=== PATIENT | male | born 1950 | race Caucasian/White ===

== ENCOUNTER → 2021-03-31 12:45 | Outpatient (REF) | payer MEDICARE, SELFPAY ==
--- NOTE | 2021-03-31 13:29 | CA_ITS ---
Transthoracic Echocardiogram Patient (Last, First, Middle): Alejandro Lee K Gender: Male Date of : 1950 Age: 71 Procedure Date: 03/31/2021 Procedure Type: Transthoracic Echocardiogram Location: OP Height: 170.18 cm Weight: 83.92 kg BSA: 1.96 m2 Heart Rate: bpm BP: 130 / 50 mmHg Dynamite Reclaimer: CROW Referring MD: Dwight Nunes MD Shactor: Jaxson Lane MD Symptoms: R06.02 SOB Study Quality: Good ECG Rhythm: Sinus Conclusions: - 1. low normal LV systolic function with LVEF of 50-55% with impaired relaxation filling pattern with underlying regional wall motion abnormality suggestive coronary artery disease 2. Mild aortic stenosis and regurgitation 3. Mildly dilated left atrium 4. Normal RV systolic pressure 5. No gross pericardial effusion Findings Left Ventricle Normal left ventricular cavity size. There is normal left ventricular wall thickness. The visually estimated ejection fraction is between 50-55%. Spectral Doppler is indicative of an impaired relaxation filling pattern. E/E prime ratio is between 8 and 15 consistent with indeterminate filling pressures. There is moderate septal asymmetric hypertrophy. Wall Motion Rest Echo Findings The basal inferior, basal inferoseptal, and basal inferolateral segments are hypokinetic. All other scored wall segments showed normal motion. Right Ventricle Normal right ventricular cavity size and systolic function. Atria The left atrium is mildly dilated. Interatrial shunt cannot be excluded. The right atrium was not well visualized. Aortic Valve There is mild calcification of the aortic valve. There is mild aortic valve stenosis. The peak aortic gradient is 14 mmHg.The mean gradient is 7 mmHg. There is mild aortic valve regurgitation. Mitral Valve There is mild anterior and moderate posterior mitral leaflet thickening. There is moderate mitral annular calcification. There is trace mitral valve regurgitation. There is no mitral valve stenosis. Pulmonic Valve The pulmonic valve was not well visualized. Tricuspid Valve Likely normal tricuspid valve structure and function. There is trace tricuspid valve regurgitation. The right ventricular systolic pressure is normal. The right ventricular systolic pressure is 23 mmHg. Normal right atrial pressure. There is no evidence of pulmonary hypertension. Great Vessels All visible segments of the aorta are normal in size. The pulmonary artery was not well visualized. Venous The inferior vena cava is normal in size and collapses greater than 50% with inspiration. Pericardium/Pleural There is no evidence of pericardial effusion. Prior Study Comparison Changes noted compared to prior study dated: 08/22/2017. Regional wall motion abnormality is apparent. RV systolic pressure is measured to be within normal limits. There is suggestion of mild aortic stenosis. Measurements 2D Linear Measurements IVSd: 1.49 0.6-0.9/0.6-1.0 cm LVIDd: 5.14 3.9-5.3/4.2-5.9 cm LVIDd Index: 2.62 2.4-3.2/2.2-3.1 cm/m2 LVIDs: 3.88 2.0-3.6 cm LVPWd: 0.83 0.7-1.1 cm LA Diam: 4.10 2.7-3.8/3.0-4.0 cm LAIDs Index: 2.09 1.5-2.3 cm/m2 LV Mass: 290.54 67-162/88-224 g LV Mass Index: 148.23 43-95/49-115 g/m2 LVOT Diam: 2.30 3.0+(-)1.3 cm 2D Systolic Function EF 4C: 45.90 >55% EF 2C: 55.10 >55% EF BiP: 50.20 >55% Mitral Valve MV Pk E: 0.61 MV PK A: 0.83 MV Decel Time: 245.00 E/A: 0.70 E'Lateral: 8.27 E'Medial: 6.20 E/E' Med: 9.90 E/E' Lat: 7.40 PHT: 72.00 MVA PHT: 3.06 Decel Mingo: 2.50 Aortic Valve AoV Pk Binu: 1.88 AoV Mn Binu: 1.26 AoV VTI: 0.37 AoV Pk Grad: 14.00 Aov Mn Grad: 7.00 ANA CRISTINA Cont.VTI: 2.17 LVOT LVOT Pk Binu: 0.95 LVOT Mn Binu: 0.57 LVOT VTI: 0.19 LVOT Pk Grad: 4.00 LVOT Mn Grad: 2.00 LVOT Diam: 2.30 LVOT Area: 4.15 Diastolic Function MV Pk E: 0.61 MV Pk A: 0.83 E/A: 0.70 E'Medial: 6.20 E/E' Med: 9.90 E' Laterial: 8.27 E/E' Lat: 7.40 Right Ventricle TAPSE (mm): 2.09 Tricuspid Valve TR Pk Binu: 2.23 TR Pk Grad: 20.00 RA Press: 3.00 RVSP: 23.00 Great Vessels Aorta Ao Asc: 3.80 2.1-3.4 cm Updated in Other Vendor System with Status of Final Jaxson Lane MD electronically signed on 04/02/2021 10:25:41 AM with status of Final
== END ==
LOC: HO.CARD 12:45
PROVIDERS: Visit Provider Family Medicine
DX: I08.0 Rheumatic disorders of both mitral and aortic valves (principal); R06.02 Shortness of breath
CPT/HCPCS: 93306

== ENCOUNTER 2022-07-29 15:12 | Emergency (ER) | payer MEDICARE, SELFPAY ==
--- NOTE | 2022-07-29 15:45 | ED_ITS ---
HPI - General Adult General Chief complaint: Wound/Laceration <INOCENCIO Chirinos - Last Filed: 07/29/22 16:04> Stated complaint: wound center sent over <INOCENCIO Chirinos - Last Filed: 07/29/22 16:04> Time Seen by Provider: 07/29/22 16:09 <INOCENCIO Chirinos - Last Filed: 07/29/22 16:04> Source: patient <Peggy De La Paz MD - Last Filed: 07/29/22 18:06> Mode of arrival: ambulatory <Peggy De La Paz MD - Last Filed: 07/29/22 18:06> Limitations: no limitations <Peggy De La Paz MD - Last Filed: 07/29/22 18:06> History of Present Illness HPI narrative: Patient comes emergency room from the wound clinic. Patient states he is a new patient today. Patient has history of an old tib-fib fracture which occur in the 1970s. Patient states that he healed well and had no problems. Approximately a week ago, patient went cross-country skiing, fell, injuring the old surgical site. Patient states that he did not think much of it. Patient noted that there was a laceration in his briseno. However, patient states that because [place] was [place] of [place], he did not want to go to a hospital and risk getting a huge bill. Patient denies fever chills. <Peggy De La Paz MD - Last Filed: 07/29/22 18:06> Related Data Allergies/adverse reactions: Allergies Allergy/AdvReac Type Severity Reaction Status Date / Time No Known Allergies Allergy Mild N/A Unverified 01/23/20 15:22 <INOCENCIO Chirinos - Last Filed: 07/29/22 16:04> Review of Systems Review of Systems: Constitutional : No Weight loss, No Fever, No Chills, No Night Sweats, No Fatigue, No Malaise ENT/Mouth : No Hearing loss, No Ear Pain, No Nasal Congestion, No Sinus Pain, No Hoarseness, No sore throat, No Rhinorrhea, No Swallowing Difficulty Eyes: No Eye Pain, No Swelling, No Redness, No Foreign Body, No Discharge, No Vision Changes Cardiovascular : No Chest Pain, No SOB, No Dyspnea on Exertion, No Orthopnea, No Edema, No Palpitations Respiratory : No Cough, No Sputum, No Wheezing, No Smoke Exposure, No Dyspnea Gastrointestinal : No Nausea, No Vomiting, No Diarrhea, No Constipation, No abdominal Pain, No Hematochezia, No Melena Genitourinary : no irregular bleeding, No Dysuria, No Urinary Frequency, No Hematuria, No Urinary Incontinence, No Urgency, No Flank Pain, No Urinary Flow Changes, No Hesitancy Musculoskeletal : No joint pain, No Myalgias, No Joint Swelling Skin : No Skin Lesions, infected chronic wound on dorsum left lower extremity Neuro : No Weakness, No Numbness, No Paresthesias, No Loss of Consciousness, No Dizziness, No Headache Psych : No Anxiety/Panic, No Depression, No SI/HI/AH/VH, No Social Issues, Heme/Lymph: No Bruising, No Bleeding,No Lymphadenopathy Endocrine : No Polyuria, No Polydipsia, No Temperature Intolerance <Peggy De La Paz MD - Last Filed: 07/29/22 18:06> [facility] Social History Social History: Social History Advance Directives: No Advance Directives Information Provided: No <INOCENCIO Chirinos - Last Filed: 07/29/22 16:04> Physical Exam ED Vital Signs: Vital Signs - 24 hr 07/29/22 15:53 Temperature 98 F Pulse Rate 78 Respiratory Rate 18 Blood Pressure 148/65 H Pulse Oximetry 97 Oxygen Delivery Method Room Air BMI result Body Mass Index 29.0 <INOCENCIO Chirinos - Last Filed: 07/29/22 16:04> Vital Signs - 24 hr 07/29/22 15:53 Temperature 98 F Pulse Rate 78 Respiratory Rate 18 Blood Pressure 148/65 H Pulse Oximetry 97 Oxygen Delivery Method Room Air BMI result Body Mass Index 29.0 <Peggy De La Paz MD - Last Filed: 07/29/22 18:06> Const Other: Appearance: Alert. Oriented X3. No acute distress. Eyes: Pupils equal, round and reactive to light. ENT: Pharynx normal. Neck: Normal inspection. Neck supple. No lymph nodes noted. No crepitus CVS: Normal heart rate and rhythm. Pulses normal. Normal S1 and S2 Respiratory: No respiratory distress. Breath sounds normal. No Wheezing. No rales Abdomen: Soft and nontender. No rigidity. No distention. Skin: Skin warm and dry. Normal skin color. Patient has a 3 cm by 2 cm wound on the dorsum of the left briseno, cellulitis surrounding the wound. Extremities: No lower extremity edema. See skin above Neuro: Oriented X 3. No motor deficit. No sensory deficit. Moving all extremities. No slurred speech. CN 2 through 12 grossly intact Psych: calm, cooperative, normal affect <Peggy De La Paz MD - Last Filed: 07/29/22 18:06> Course Course Course Narrative: RME--72-year-old male with a past medical history multiple left lower extremity surgeries, sent to ED from wound care for suspected osteomyelitis and Gram cultures growing Gram-negative rods. Outpatient x-rays today show healing fractures of the distal tibia/fibula & healing proximal fibular fracture. Patient reports malodor noted from area today. Denies fever Open wound with bony exposure to mid left tibia with surrounding swelling/erythe ma and warmth. Small area proximal bleeding suspected from bony puncture Labs including lactic/blood cultures ordered, patient will need IV antibiotics <INOCENCIO Chirinos - Last Filed: 07/29/22 16:04> Medications Administered Discontinued Medications Generic Name Dose Route Start Last Admin Trade Name Freq PRN Reason Stop Dose Admin Piperacillin Sod/Tazobactam 50 mls @ 100 mls/hr 07/29/22 16:19 07/29/22 17:52 Sod 3.375 gm/ Sodium Chloride IV 07/29/22 16:48 Infused ONCE ONE Infusion <INOCENCIO Chirinos - Last Filed: 07/29/22 16:04> Medications Administered Discontinued Medications Generic Name Dose Route Start Last Admin Trade Name Freq PRN Reason Stop Dose Admin Piperacillin Sod/Tazobactam 50 mls @ 100 mls/hr 07/29/22 16:19 07/29/22 17:52 Sod 3.375 gm/ Sodium Chloride IV 07/29/22 16:48 Infused ONCE ONE Infusion <Peggy De La Paz MD - Last Filed: 07/29/22 18:06> Medical Decision Making Medical Decision Making MDM Narrative: -I discussed with the patient that I strongly encouraged him to stay for admission and IV antibiotics. -patient is alert and oriented x4, states that he lives at home alone and there is no one to lock his apartment. Patient states that there is no one that can help with this. Patient states that he is agreeable to get a dose of IV antibiotics today. Patient requesting to be discharged and he will be back later today or tomorrow in the morning. Patient is aware that given the hospital will delay his care and the wound may worsen, he may become septic which in severe cases may lead to , also, discussed that the infection can worsen to the point of amputation or disability <Peggy De La Paz MD - Last Filed: 07/29/22 18:06> Differential Diagnosis Differential Diagnoses: The differential diagnosis associated with the presentation includes (Cellulitis, osteomyelitis) <Peggy De La Paz MD - Last Filed: 07/29/22 18:06> Admission/Observation Consideration of admission/observation: Escalation of care including admission/observation considered (I discussed with the patient I strongly recommend that he gets admitted. Patient states that he will take care of things at home, and then return for admission. As mentioned above, I discussed with the patient the risks of leaving) <Peggy De La Paz MD - Last Filed: 07/29/22 18:06> Lab Data MDM Lab Attestation statement: I reviewed the patient's lab results. <Peggy De La Paz MD - Last Filed: 07/29/22 18:06> Result Diagrams: 07/29/22 16:33 07/29/22 16:33 <INOCENCIO Chirinos - Last Filed: 07/29/22 16:04> Labs: Lab Results 07/29/22 07/29/22 07/29/22 Range/Units 16:33 16:33 16:33 WBC 9.8 (4.8-10.8) X10*3/uL RBC 4.23 L (4.60-5.80) X10*6/uL Hgb 13.0 L (14.0-18.0) g/dl Hct 38.4 L (42.0-52.0) % MCV 90.8 (80.0-98.0) fL MCH 30.7 (27.0-33.0) pg MCHC 33.9 (31.0-36.0) g/dl RDW 13.4 (11.0-16.0) % Plt Count 322 (160-400) X10*3/uL MPV 8.8 L (9.4-12.4) fL Immature Gran % (Auto) 0.3 (0.0-0.4) % Neut % (Auto) 61.4 (45-73) % Lymph % (Auto) 21.8 (20-40) % Churchill % (Auto) 11.3 H (2-11) % Eos % (Auto) 4.4 H (0-4) % Baso % (Auto) 0.8 (0-2) % Lymph # (Auto) 2.1 (1.2-4.9) X10*3/uL Churchill # (Auto) 1.1 (0.1-1.2) X10*3/uL Eos # (Auto) 0.4 (0.0-0.4) X10*3/uL Baso # (Auto) 0.1 (0.0-0.2) X10*3/uL Abs Immat Gran (auto) 0.03 (0.00-0.03) X10*3/uL Absolute Neuts (auto) 6.0 (2.0-8.3) x10*3/uL Absolute Nucleated RBC 0.000 (0.0-0.012) X10*3/uL Nucleated RBC % (auto) 0.0 (0.0-0.2) /100WBC ESR 58 H (0-15) MM/HR PT 12.6 (10.0-13.1) SEC INR 1.1 (0.9-1.1) Sodium (135-145) mmol/L Potassium (3.3-5.1) mmol/L Chloride (96-108) mmol/L Carbon Dioxide (22-29) mmol/L Anion Gap (12-20) BUN (9-16) mg/dL Creatinine (0.5-1.4) mg/dL Estim Creat Clear Calc Estimated GFR Random Glucose (60-115) mg/dL Lactic Acid (0.5-2.0) mmol/L Calcium (8.4-10.2) mg/dL Magnesium (1.6-2.6) mg/dL Total Bilirubin (0.0-1.0) mg/dL Direct Bilirubin (0.0-0.5) mg/dL AST (5-37) U/L ALT (0-40) U/L Alkaline Phosphatase (39-117) U/L C-Reactive Protein (< or = 0.50) mg/dL Total Protein (6.5-8.0) g/dL Albumin (3.5-5.0) g/dL COVID-19 (RON) (Negative) COVID-19 Clin Com 07/29/22 07/29/22 07/29/22 Range/Units 16:33 16:33 16:33 WBC (4.8-10.8) X10*3/uL RBC (4.60-5.80) X10*6/uL Hgb (14.0-18.0) g/dl Hct (42.0-52.0) % MCV (80.0-98.0) fL MCH (27.0-33.0) pg MCHC (31.0-36.0) g/dl RDW (11.0-16.0) % Plt Count (160-400) X10*3/uL MPV (9.4-12.4) fL Immature Gran % (Auto) (0.0-0.4) % Neut % (Auto) (45-73) % Lymph % (Auto) (20-40) % Churchill % (Auto) (2-11) % Eos % (Auto) (0-4) % Baso % (Auto) (0-2) % Lymph # (Auto) (1.2-4.9) X10*3/uL Churchill # (Auto) (0.1-1.2) X10*3/uL Eos # (Auto) (0.0-0.4) X10*3/uL Baso # (Auto) (0.0-0.2) X10*3/uL Abs Immat Gran (auto) (0.00-0.03) X10*3/uL Absolute Neuts (auto) (2.0-8.3) x10*3/uL Absolute Nucleated RBC (0.0-0.012) X10*3/uL Nucleated RBC % (auto) (0.0-0.2) /100WBC ESR (0-15) MM/HR PT (10.0-13.1) SEC INR (0.9-1.1) Sodium 132 L (135-145) mmol/L Potassium 4.8 (3.3-5.1) mmol/L Chloride 95 L (96-108) mmol/L Carbon Dioxide 27 (22-29) mmol/L Anion Gap 15 (12-20) BUN 17 H (9-16) mg/dL Creatinine 1.12 (0.5-1.4) mg/dL Estim Creat Clear Calc 59.8 Estimated GFR > 60 Random Glucose 99 (60-115) mg/dL Lactic Acid 1.4 (0.5-2.0) mmol/L Calcium 9.2 (8.4-10.2) mg/dL Magnesium 2.0 (1.6-2.6) mg/dL Total Bilirubin 0.5 (0.0-1.0) mg/dL Direct Bilirubin 0.2 (0.0-0.5) mg/dL AST 21 (5-37) U/L ALT 14 (0-40) U/L Alkaline Phosphatase 90 (39-117) U/L C-Reactive Protein 1.16 H (< or = 0.50) mg/dL Total Protein 7.8 (6.5-8.0) g/dL Albumin 3.9 (3.5-5.0) g/dL COVID-19 (RON) Negative (Negative) COVID-19 Clin Com See Note <INOCENCIO Chirinos - Last Filed: 07/29/22 16:04> Lab Results 07/29/22 07/29/22 07/29/22 Range/Units 16:33 16:33 16:33 WBC 9.8 (4.8-10.8) X10*3/uL RBC 4.23 L (4.60-5.80) X10*6/uL Hgb 13.0 L (14.0-18.0) g/dl Hct 38.4 L (42.0-52.0) % MCV 90.8 (80.0-98.0) fL MCH 30.7 (27.0-33.0) pg MCHC 33.9 (31.0-36.0) g/dl RDW 13.4 (11.0-16.0) % Plt Count 322 (160-400) X10*3/uL MPV 8.8 L (9.4-12.4) fL Immature Gran % (Auto) 0.3 (0.0-0.4) % Neut % (Auto) 61.4 (45-73) % Lymph % (Auto) 21.8 (20-40) % Churchill % (Auto) 11.3 H (2-11) % Eos % (Auto) 4.4 H (0-4) % Baso % (Auto) 0.8 (0-2) % Lymph # (Auto) 2.1 (1.2-4.9) X10*3/uL Churchill # (Auto) 1.1 (0.1-1.2) X10*3/uL Eos # (Auto) 0.4 (0.0-0.4) X10*3/uL Baso # (Auto) 0.1 (0.0-0.2) X10*3/uL Abs Immat Gran (auto) 0.03 (0.00-0.03) X10*3/uL Absolute Neuts (auto) 6.0 (2.0-8.3) x10*3/uL Absolute Nucleated RBC 0.000 (0.0-0.012) X10*3/uL Nucleated RBC % (auto) 0.0 (0.0-0.2) /100WBC ESR 58 H (0-15) MM/HR PT 12.6 (10.0-13.1) SEC INR 1.1 (0.9-1.1) Sodium (135-145) mmol/L Potassium (3.3-5.1) mmol/L Chloride (96-108) mmol/L Carbon Dioxide (22-29) mmol/L Anion Gap (12-20) BUN (9-16) mg/dL Creatinine (0.5-1.4) mg/dL Estim Creat Clear Calc Estimated GFR Random Glucose (60-115) mg/dL Lactic Acid (0.5-2.0) mmol/L Calcium (8.4-10.2) mg/dL Magnesium (1.6-2.6) mg/dL Total Bilirubin (0.0-1.0) mg/dL Direct Bilirubin (0.0-0.5) mg/dL AST (5-37) U/L ALT (0-40) U/L Alkaline Phosphatase (39-117) U/L C-Reactive Protein (< or = 0.50) mg/dL Total Protein (6.5-8.0) g/dL Albumin (3.5-5.0) g/dL COVID-19 (RON) (Negative) COVID-19 Clin Com 07/29/22 07/29/22 07/29/22 Range/Units 16:33 16:33 16:33 WBC (4.8-10.8) X10*3/uL RBC (4.60-5.80) X10*6/uL Hgb (14.0-18.0) g/dl Hct (42.0-52.0) % MCV (80.0-98.0) fL MCH (27.0-33.0) pg MCHC (31.0-36.0) g/dl RDW (11.0-16.0) % Plt Count (160-400) X10*3/uL MPV (9.4-12.4) fL Immature Gran % (Auto) (0.0-0.4) % Neut % (Auto) (45-73) % Lymph % (Auto) (20-40) % Churchill % (Auto) (2-11) % Eos % (Auto) (0-4) % Baso % (Auto) (0-2) % Lymph # (Auto) (1.2-4.9) X10*3/uL Churchill # (Auto) (0.1-1.2) X10*3/uL Eos # (Auto) (0.0-0.4) X10*3/uL Baso # (Auto) (0.0-0.2) X10*3/uL Abs Immat Gran (auto) (0.00-0.03) X10*3/uL Absolute Neuts (auto) (2.0-8.3) x10*3/uL Absolute Nucleated RBC (0.0-0.012) X10*3/uL Nucleated RBC % (auto) (0.0-0.2) /100WBC ESR (0-15) MM/HR PT (10.0-13.1) SEC INR (0.9-1.1) Sodium 132 L (135-145) mmol/L Potassium 4.8 (3.3-5.1) mmol/L Chloride 95 L (96-108) mmol/L Carbon Dioxide 27 (22-29) mmol/L Anion Gap 15 (12-20) BUN 17 H (9-16) mg/dL Creatinine 1.12 (0.5-1.4) mg/dL Estim Creat Clear Calc 59.8 Estimated GFR > 60 Random Glucose 99 (60-115) mg/dL Lactic Acid 1.4 (0.5-2.0) mmol/L Calcium 9.2 (8.4-10.2) mg/dL Magnesium 2.0 (1.6-2.6) mg/dL Total Bilirubin 0.5 (0.0-1.0) mg/dL Direct Bilirubin 0.2 (0.0-0.5) mg/dL AST 21 (5-37) U/L ALT 14 (0-40) U/L Alkaline Phosphatase 90 (39-117) U/L C-Reactive Protein 1.16 H (< or = 0.50) mg/dL Total Protein 7.8 (6.5-8.0) g/dL Albumin 3.9 (3.5-5.0) g/dL COVID-19 (RON) Negative (Negative) COVID-19 Clin Com See Note <Peggy De La Paz MD - Last Filed: 07/29/22 18:06> Radiology Impression Discussion of test interpretation with radiology: I have reviewed the radiologist's reading. (X-ray from yesterday, ordered from outpatient office) <Peggy De La Paz MD - Last Filed: 07/29/22 18:06> Radiologist Impression: FINDINGS: There is healing fracture distal tibia and fibula with mild lateral angulation. There is a leading proximal fibular fracture as well. No acute fractures seen.? XR/XR tibia fibula LT 2V IMPRESSION: Healing fracture distal tibia and fibula with mild lateral angulation. There is healing proximal fibular fracture as well. No acute fracture seen. <Peggy De La Paz MD - Last Filed: 07/29/22 18:06> Prescription Management I considered prescription management with: Antibiotic (I considered giving the patient a prescription for antibiotics. However, patient states that he will return tonight to be admitted) <Peggy De La Paz MD - Last Filed: 07/29/22 18:06> Discharge Plan Discharge Clinical Impression: Cellulitis <INOCENCIO Chirinos - Last Filed: 07/29/22 16:04> Patient Disposition: Left Against Medical Advice <INOCENCIO Chirinos - Last Filed: 07/29/22 16:04> Instructions: Cellulitis (ED) <INOCENCIO Chirinos - Last Filed: 07/29/22 16:04> Additional Instructions: We recommended that you stay in the hospital for IV antibiotics. Please return as soon as possible to be admitted. <INOCENCIO Chirinos - Last Filed: 07/29/22 16:04>
[2022-07-29 15:53] VITALS: BP 148/65; PULSE 78; RESP 18; TEMP 36.6; O2SAT 97; BMI 29.0
--- NOTE | 2022-07-29 15:56 | ECG_ITS ---
Test Reason : ?SEPSIS Blood Pressure : / mmHG Vent. 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
[2022-07-29 16:38] LABS: MANUAL DIFF FLAG NO
[2022-07-29 16:40] LABS: Basophils Absolute Auto 0.1 X10*3/uL (0.0-0.2); Basophils Percent Auto 0.8 % (0-2); Eosinophils Absolute Auto 0.4 X10*3/uL (0.0-0.4); Eosinophils Percent Auto 4.4 % (0-4); Hematocrit 38.4 % (42.0-52.0); Imm Gran Abs Auto 0.03 X10*3/uL (0.00-0.03); Imm Gran Pct Auto 0.3 % (0.0-0.4); Lymphocytes Absolute Auto 2.1 X10*3/uL (1.2-4.9); Lymphocytes Percent Auto 21.8 % (20-40); Mean Corpuscular HGB Conc 33.9 g/dl (31.0-36.0); Mean Corpuscular Hemoglobin 30.7 pg (27.0-33.0); Mean Corpuscular Volume 90.8 fL (80.0-98.0); Mean Platelet Volume 8.8 fL (9.4-12.4); Monocytes Absolute Auto 1.1 X10*3/uL (0.1-1.2); Monocytes Percent Auto 11.3 % (2-11); Neutrophils Percent Auto 61.4 % (45-73); Platelet Count 322 X10*3/uL (160-400); Red Blood Count 4.23 X10*6/uL (4.60-5.80); Red Cell Distribution Width 13.4 % (11.0-16.0); White Blood Count 9.8 X10*3/uL (4.8-10.8)
[2022-07-29 16:45] LABS: INTERNATIONAL NORM RATIO 1.1 (0.9-1.1); Prothrombin Time 12.6 SEC (10.0-13.1)
[2022-07-29 17:03] LABS: COVID-19 Test Negative (Negative); IDNOW Serial# 08D9AD1C
[2022-07-29 17:07] LABS: Lactic Acid 1.4 mmol/L (0.5-2.0)
[2022-07-29 17:11] LABS: Alanine Aminotransferase 14 U/L (0-40); Albumin Level 3.9 g/dL (3.5-5.0); Alkaline Phosphatase 90 U/L (39-117); Anion Gap 15 (12-20); Aspartate Amino Transferase 21 U/L (5-37); Bilirubin Direct 0.2 mg/dL (0.0-0.5); Bilirubin Total 0.5 mg/dL (0.0-1.0); Blood Urea Nitrogen 17 mg/dL (9-16); C Reactive Protein 1.16 mg/dL (< or = 0.50); Calcium 9.2 mg/dL (8.4-10.2); Carbon Dioxide 27 mmol/L (22-29); Chloride 95 mmol/L (96-108); Creatinine Clr Calc Pharmacy 59.8; Estimated Glomerular Filt Rate > 60; Glucose Random 99 mg/dL (60-115); Potassium 4.8 mmol/L (3.3-5.1); Sodium 132 mmol/L (135-145); Total Protein 7.8 g/dL (6.5-8.0)
[2022-07-29] MEDS: Piperacillin Sodium/Tazobactam 3.375 GM in 0.9 % Sodium Chloride 50 ML IV (17:14)
[2022-07-29 17:23] LABS: Erythrocyte Sedimentation Rate 58 MM/HR (0-15)
--- NOTE | 2022-07-29 18:06 | PC.NURSE ---
Patient with wound to medial aspect to left calf receiving ABX with no ill ffect. AOx 4 swelling noted to LLE with redness traced with marker will CTM
[2022-07-29 19:53] VITALS: BP 151/55; PULSE 78; RESP 18; TEMP 36.8; O2SAT 99
--- NOTE | 2022-07-29 21:47 | PC.NURSE ---
Assumed care of pt. at 1900. Pt. lying in bed at this time under no apparent distress. Pt. has vancomycin running with about 1 hour 15 minutes left. Pt. is going to d/c home AMA when finished. Pt. encouraged to return for admission [facility] to obtain more IV antibiotics. Pt. has a wound to the left leg about 5X7cm in size, which was cleansed and wrapped with xeroform and then covered in gauze and wrapped with conforming bandage.
== END 2022-07-29 21:00 | disposition left against medical advice (07) ==
PROVIDERS: Physician Assistant; Emergency Provider Emergency Medicine
DX: L03.116 Cellulitis of left lower limb (principal); R94.31 Abnormal electrocardiogram [ECG] [EKG]; Z20.822 Contact with and (suspected) exposure to COVID-19; Z20.828 Contact with and (suspected) exposure to other viral communicable diseases; Z79.899 Other long term (current) drug therapy
CPT/HCPCS: 80048; 80076; 83605; 83735; 85025; 85610; 85652; 86140; 87040; 87635; 93005; 96365; 96375; 99284; J2543; J3370

== ENCOUNTER 2022-07-31 12:46 | Emergency (ER) | payer MEDICARE, SELFPAY ==
[2022-07-31 12:55] VITALS: BP 134/68; PULSE 73; RESP 19; TEMP 36.6; O2SAT 100; BMI 27.3
--- NOTE | 2022-07-31 13:01 | ED_ITS ---
HPI - General Adult General Chief complaint: Wound/Laceration Stated complaint: transfusion? Related Data Allergies Allergy/AdvReac Type Severity Reaction Status Date / Time No Known Allergies Allergy Mild N/A Unverified 01/23/20 15:22 [facility] Social History Social History Advance Directives: No Advance Directives Information Provided: No Physical Exam ED Vital Signs: Vital Signs - 24 hr 07/31/22 12:55 Temperature 98 F Pulse Rate 73 Respiratory Rate 19 Blood Pressure 134/68 Pulse Oximetry 100 Oxygen Delivery Method Room Air BMI result Body Mass Index 27.3 Course Course Course Narrative: RME: 72 yold male presents to the ED for left foot wound. patient was supposed to be admitted last 07/29, but signed out AMA. patient willing to be admitted. repeat labs ordered. Patient had Xray on 07/29 Medical Decision Making Lab Data 07/31/22 15:23 07/31/22 15:23 Labs: Lab Results 07/31/22 07/31/22 07/31/22 Range/Units 15:23 15:23 15:23 WBC 7.8 (4.8-10.8) X10*3/uL RBC 4.48 L (4.60-5.80) X10*6/uL Hgb 13.8 L (14.0-18.0) g/dl Hct 41.5 L (42.0-52.0) % MCV 92.6 (80.0-98.0) fL MCH 30.8 (27.0-33.0) pg MCHC 33.3 (31.0-36.0) g/dl RDW 13.4 (11.0-16.0) % Plt Count 342 (160-400) X10*3/uL MPV 8.8 L (9.4-12.4) fL Immature Gran % (Auto) 0.5 H (0.0-0.4) % Neut % (Auto) 56.9 (45-73) % Lymph % (Auto) 24.4 (20-40) % Bollinger % (Auto) 13.1 H (2-11) % Eos % (Auto) 4.2 H (0-4) % Baso % (Auto) 0.9 (0-2) % Lymph # (Auto) 1.9 (1.2-4.9) X10*3/uL Bollinger # (Auto) 1.0 (0.1-1.2) X10*3/uL Eos # (Auto) 0.3 (0.0-0.4) X10*3/uL Baso # (Auto) 0.1 (0.0-0.2) X10*3/uL Abs Immat Gran (auto) 0.04 H (0.00-0.03) X10*3/uL Absolute Neuts (auto) 4.5 (2.0-8.3) x10*3/uL Absolute Nucleated RBC 0.000 (0.0-0.012) X10*3/uL Nucleated RBC % (auto) 0.0 (0.0-0.2) /100WBC ESR 64 H (0-15) MM/HR Sodium 132 L (135-145) mmol/L Potassium 4.2 (3.3-5.1) mmol/L Chloride 95 L (96-108) mmol/L Carbon Dioxide 24 (22-29) mmol/L Anion Gap 17 (12-20) BUN 15 (9-16) mg/dL Creatinine 1.02 (0.5-1.4) mg/dL Estim Creat Clear Calc 63.3 Estimated GFR > 60 Random Glucose 89 (60-115) mg/dL Lactic Acid (0.5-2.0) mmol/L Calcium 9.6 (8.4-10.2) mg/dL Total Bilirubin 0.6 (0.0-1.0) mg/dL AST 24 (5-37) U/L ALT 16 (0-40) U/L Alkaline Phosphatase 89 (39-117) U/L C-Reactive Protein 1.41 H (< or = 0.50) mg/dL Total Protein 8.3 H (6.5-8.0) g/dL Albumin 4.0 (3.5-5.0) g/dL 07/31/22 Range/Units 15:23 WBC (4.8-10.8) X10*3/uL RBC (4.60-5.80) X10*6/uL Hgb (14.0-18.0) g/dl Hct (42.0-52.0) % MCV (80.0-98.0) fL MCH (27.0-33.0) pg MCHC (31.0-36.0) g/dl RDW (11.0-16.0) % Plt Count (160-400) X10*3/uL MPV (9.4-12.4) fL Immature Gran % (Auto) (0.0-0.4) % Neut % (Auto) (45-73) % Lymph % (Auto) (20-40) % Bollinger % (Auto) (2-11) % Eos % (Auto) (0-4) % Baso % (Auto) (0-2) % Lymph # (Auto) (1.2-4.9) X10*3/uL Bollinger # (Auto) (0.1-1.2) X10*3/uL Eos # (Auto) (0.0-0.4) X10*3/uL Baso # (Auto) (0.0-0.2) X10*3/uL Abs Immat Gran (auto) (0.00-0.03) X10*3/uL Absolute Neuts (auto) (2.0-8.3) x10*3/uL Absolute Nucleated RBC (0.0-0.012) X10*3/uL Nucleated RBC % (auto) (0.0-0.2) /100WBC ESR (0-15) MM/HR Sodium (135-145) mmol/L Potassium (3.3-5.1) mmol/L Chloride (96-108) mmol/L Carbon Dioxide (22-29) mmol/L Anion Gap (12-20) BUN (9-16) mg/dL Creatinine (0.5-1.4) mg/dL Estim Creat Clear Calc Estimated GFR Random Glucose (60-115) mg/dL Lactic Acid 1.0 (0.5-2.0) mmol/L Calcium (8.4-10.2) mg/dL Total Bilirubin (0.0-1.0) mg/dL AST (5-37) U/L ALT (0-40) U/L Alkaline Phosphatase (39-117) U/L C-Reactive Protein (< or = 0.50) mg/dL Total Protein (6.5-8.0) g/dL Albumin (3.5-5.0) g/dL Discharge Plan Discharge Clinical Impression: Wound infection Patient Disposition: Left Without Being Seen Discharge Date/Time: 07/31/22 18:54
[2022-07-31 15:30] LABS: MANUAL DIFF FLAG NO
[2022-07-31 15:39] LABS: Basophils Absolute Auto 0.1 X10*3/uL (0.0-0.2); Basophils Percent Auto 0.9 % (0-2); Eosinophils Absolute Auto 0.3 X10*3/uL (0.0-0.4); Eosinophils Percent Auto 4.2 % (0-4); Hematocrit 41.5 % (42.0-52.0); Hemoglobin 13.8 g/dl (14.0-18.0); Imm Gran Abs Auto 0.04 X10*3/uL (0.00-0.03); Imm Gran Pct Auto 0.5 % (0.0-0.4); Lymphocytes Absolute Auto 1.9 X10*3/uL (1.2-4.9); Lymphocytes Percent Auto 24.4 % (20-40); Mean Corpuscular HGB Conc 33.3 g/dl (31.0-36.0); Mean Corpuscular Hemoglobin 30.8 pg (27.0-33.0); Mean Corpuscular Volume 92.6 fL (80.0-98.0); Mean Platelet Volume 8.8 fL (9.4-12.4); Monocytes Percent Auto 13.1 % (2-11); Neutrophils Absolute Auto 4.5 x10*3/uL (2.0-8.3); Neutrophils Percent Auto 56.9 % (45-73); Platelet Count 342 X10*3/uL (160-400); Red Blood Count 4.48 X10*6/uL (4.60-5.80); Red Cell Distribution Width 13.4 % (11.0-16.0); White Blood Count 7.8 X10*3/uL (4.8-10.8)
[2022-07-31 15:55] LABS: Alanine Aminotransferase 16 U/L (0-40); Alkaline Phosphatase 89 U/L (39-117); Anion Gap 17 (12-20); Aspartate Amino Transferase 24 U/L (5-37); Bilirubin Total 0.6 mg/dL (0.0-1.0); Blood Urea Nitrogen 15 mg/dL (9-16); C Reactive Protein 1.41 mg/dL (< or = 0.50); Calcium 9.6 mg/dL (8.4-10.2); Carbon Dioxide 24 mmol/L (22-29); Chloride 95 mmol/L (96-108); Creatinine Clr Calc Pharmacy 63.3; Estimated Glomerular Filt Rate > 60; Glucose Random 89 mg/dL (60-115); Potassium 4.2 mmol/L (3.3-5.1); Sodium 132 mmol/L (135-145); Total Protein 8.3 g/dL (6.5-8.0)
[2022-07-31 16:34] LABS: Erythrocyte Sedimentation Rate 64 MM/HR (0-15)
== END 2022-07-31 18:54 | disposition left against medical advice (07) ==
PROVIDERS: Physician Assistant; Emergency Provider Emergency Medicine; PCP Family Medicine
DX: L08.9 Local infection of the skin and subcutaneous tissue, unspecified (principal); Z79.899 Other long term (current) drug therapy
CPT/HCPCS: 36415; 80053; 83605; 85025; 85652; 86140; 87040; 99281; 99283

== ENCOUNTER 2022-08-24 11:15 | Outpatient (REF) | payer MEDICARE, SELFPAY ==
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
== END 2022-08-24 11:16 | disposition home or self-care (01) ==
LOC: HO.MRI 11:15
PROVIDERS: PCP Family Medicine; Visit Provider Surgery
DX: L97.823 Non-pressure chronic ulcer of other part of left lower leg with necrosis of muscle (principal)
CPT/HCPCS: 73720; A9585

== ENCOUNTER → 2022-09-21 10:52 | Outpatient (BNVA) | payer MEDICARE, SELFPAY | PROVIDERS: PCP Family Medicine; Visit Provider Internal Medicine | DX: M86.9 Osteomyelitis, unspecified (principal) | CPT/HCPCS: 99202 ==

== ENCOUNTER 2022-10-06 14:55 | Outpatient (REF) | payer MEDICARE, SELFPAY ==
--- NOTE | ~2022-10-06 | US_ITS ---
EXAMINATION: US VENOUS ULTRASOUND WITH DOPPLER LOWER EXTREMITY, LEFT CLINICAL INFORMATION: Left lower extremity swelling and and lump. COMPARISON: None available. TECHNIQUE: Ultrasound of the deep veins is performed from the hip to the calf with compression sonography and color and pulse Doppler assessment. Spectral analysis with color-flow imaging is performed. FINDINGS: There is normal venous compression and respiratory variation and augmented flow. The visualized common femoral vein, superficial femoral vein, profunda femoral vein, popliteal vein, and the trifurcation region shows no evidence of deep venous thrombosis. There is no left popliteal cyst. The subcutaneous soft tissues are unremarkable. US/US venous duplex LE LT IMPRESSION: No evidence for deep venous thrombosis in the visualized veins of the left lower extremity.
== END 2022-10-06 14:56 | disposition home or self-care (01) ==
LOC: HO.US 14:55
PROVIDERS: Visit Provider Surgery
DX: R22.43 Localized swelling, mass and lump, lower limb, bilateral (principal)
CPT/HCPCS: 93971

== ENCOUNTER → 2022-10-31 14:28 | Outpatient (BNVA) | payer MEDICARE, SELFPAY | PROVIDERS: PCP Family Medicine; Visit Provider Internal Medicine | DX: M86.9 Osteomyelitis, unspecified (principal); I87.8 Other specified disorders of veins | CPT/HCPCS: 99212 ==

== ENCOUNTER 2023-03-06 13:56 | Outpatient (REF) | payer MEDICARE, SELFPAY ==
--- NOTE | ~2023-03-06 | CT_ITS ---
EXAMINATION: CT head/brain wo IV con CLINICAL INFORMATION: Reason for Exam CONTUSION OF UNSPECIFIED PART OF HEAD COMPARISON: CTA the neck 06/14/2019 TECHNIQUE: Contiguous axial imaging was performed from the skull base to vertex without intravenous contrast. Sagittal and coronal reformatted images were obtained. This CT examination was performed using dose optimization techniques as appropriate, variously including the following: * Automated exposure control * Adjustment of mA and/or kV according to patient size (this includes techniques or standardized protocols for targeted exams where dose is matched to indication/reason for exam; i.e. extremities or head) Use of iterative reconstruction technique DLP: 885 mGy-cm FINDINGS: New right frontal scalp hematoma tracking into the right preseptal/lateral periorbital soft tissues. No subjacent calvarial fracture. No acute intracranial hemorrhage or extra-axial fluid collection. Mild to moderate global cerebral volume loss and presumed mild chronic microangiopathy. Redemonstrated chronic lacunar infarct in the right cerebellum. No territorial loss of arrington-white differentiation. No mass lesion, significant mass effect, or herniation pattern. Intracranial calcific atherosclerosis. The orbits are grossly normal. Improved paranasal sinus mucosal disease, now with mild patchy ethmoid air cell mucosal disease with a couple bilateral retention cysts/polyps and mild chronic mucoperiosteal disease of the maxillary sinuses related to chronic sinusitis. Cerumen within the bilateral external auditory canals. CT/CT head/brain wo IV con IMPRESSION: New right frontal scalp hematoma tracking into the right preseptal/lateral periorbital soft tissues. No calvarial fracture or acute intracranial hemorrhage. Stable chronic findings as above.
== END 2023-03-06 13:57 | disposition home or self-care (01) ==
LOC: HO.CT 13:56
PROVIDERS: PCP Family Medicine; Visit Provider Physician Assistant
DX: S00.93XA Contusion of unspecified part of head, initial encounter (principal)
CPT/HCPCS: 70450

== ENCOUNTER 2023-03-10 13:31 | Inpatient (IN) | payer MEDICARE, SELFPAY ==
--- NOTE | ~2023-03-10 | XR_ITS ---
EXAMINATION: XR tibia fibula LT 2V, XR femur LT 2V, XR hip LT w PEL1V CLINICAL INFORMATION: Reason for Exam ? Free air COMPARISON: Tibia and fibula radiographs 11/03/2022 TECHNIQUE: Two views of the femur, 1 view of the pelvis, 2 views of the tibia and fibula FINDINGS: Acute displaced and impacted left subcapital femoral neck fracture. Chronic healed fracture deformities of the distal tibial and proximal and distal fibular diaphyses in unchanged alignment. Mild degenerative changes of the hips with subchondral sclerosis. Advanced degenerative changes of the left knee with complete loss of medial compartment joint space. Osteopenia in the ankle and visualized foot. No suprapatellar joint effusion. No tibiotalar joint effusion. Atherosclerotic vascular calcification with a vascular stent in the left thigh and left pelvis. XR/XR hip LT w PEL1V IMPRESSION: 1. Acute displaced and impacted left subcapital femoral neck fracture. 2. Chronic healed fracture deformities of the distal tibial and proximal and distal fibular diaphyses in unchanged alignment. 3. Mild degenerative changes of the hips. 4. Advanced degenerative changes of the left knee with complete loss of medial compartment joint space. 5. Osteopenia in the ankle and visualized foot.
--- NOTE | ~2023-03-10 | XR_ITS ---
EXAMINATION: XR ORBITS CLINICAL INFORMATION: Orbits pre-MRI, rule out foreign body COMPARISON: None available. TECHNIQUE: 3 views of the orbits were obtained. FINDINGS: There is no fracture. No evidence of radiopaque foreign body. No bone, joint or soft tissue abnormality is demonstrated. XR/XR pre mri screening IMPRESSION: No radiopaque foreign body is demonstrated within the orbits.
--- NOTE | ~2023-03-10 | XR_ITS ---
EXAMINATION: XR tibia fibula LT 2V, XR femur LT 2V, XR hip LT w PEL1V CLINICAL INFORMATION: Reason for Exam ? Free air COMPARISON: Tibia and fibula radiographs 11/03/2022 TECHNIQUE: Two views of the femur, 1 view of the pelvis, 2 views of the tibia and fibula FINDINGS: Acute displaced and impacted left subcapital femoral neck fracture. Chronic healed fracture deformities of the distal tibial and proximal and distal fibular diaphyses in unchanged alignment. Mild degenerative changes of the hips with subchondral sclerosis. Advanced degenerative changes of the left knee with complete loss of medial compartment joint space. Osteopenia in the ankle and visualized foot. No suprapatellar joint effusion. No tibiotalar joint effusion. Atherosclerotic vascular calcification with a vascular stent in the left thigh and left pelvis. XR/XR tibia fibula LT 2V IMPRESSION: 1. Acute displaced and impacted left subcapital femoral neck fracture. 2. Chronic healed fracture deformities of the distal tibial and proximal and distal fibular diaphyses in unchanged alignment. 3. Mild degenerative changes of the hips. 4. Advanced degenerative changes of the left knee with complete loss of medial compartment joint space. 5. Osteopenia in the ankle and visualized foot.
--- NOTE | ~2023-03-10 | XR_ITS ---
EXAMINATION: XR tibia fibula LT 2V, XR femur LT 2V, XR hip LT w PEL1V CLINICAL INFORMATION: Reason for Exam ? Free air COMPARISON: Tibia and fibula radiographs 11/03/2022 TECHNIQUE: Two views of the femur, 1 view of the pelvis, 2 views of the tibia and fibula FINDINGS: Acute displaced and impacted left subcapital femoral neck fracture. Chronic healed fracture deformities of the distal tibial and proximal and distal fibular diaphyses in unchanged alignment. Mild degenerative changes of the hips with subchondral sclerosis. Advanced degenerative changes of the left knee with complete loss of medial compartment joint space. Osteopenia in the ankle and visualized foot. No suprapatellar joint effusion. No tibiotalar joint effusion. Atherosclerotic vascular calcification with a vascular stent in the left thigh and left pelvis. XR/XR femur LT 2V IMPRESSION: 1. Acute displaced and impacted left subcapital femoral neck fracture. 2. Chronic healed fracture deformities of the distal tibial and proximal and distal fibular diaphyses in unchanged alignment. 3. Mild degenerative changes of the hips. 4. Advanced degenerative changes of the left knee with complete loss of medial compartment joint space. 5. Osteopenia in the ankle and visualized foot.
--- NOTE | ~2023-03-10 | MR_ITS ---
EXAMINATION: MR LOWER LEG WITHOUT AND WITH CONTRAST, LEFT CLINICAL INFORMATION: Question osteomyelitis. COMPARISON: Multiple priors, most recent left tibia and fibula radiographs dated 03/10/2023 and left lower leg MRI dated 08/24/2022. TECHNIQUE: Multisequence MR imaging of the left lower leg was obtained before and after the IV administration of 7.5 mL IV contrast on a high-field strength scanner. FINDINGS: Soft tissue ulceration/skin defect over the anteromedial aspect of the lower tibia in the region of the chronic fracture measuring up to 6.5 cm in ML dimension and similar when compared to the prior examination. Adjacent skin thickening and mild edema and enhancement, likely indicating chronic cellulitis. No organized fluid collection or abscess formation. Redemonstration of the tibial fracture line adjacent to the soft tissue ulceration with a focal, linear area of increased T2 signal (axial image 37/52) which extends into the marrow cavity and is new when compared to the prior examination. No associated postcontrast enhancement or intramedullary abscess formation. Findings could indicate early osteomyelitis in the appropriate clinical setting. No additional evidence of osteomyelitis. Redemonstration of chronic fibular fractures in unchanged anatomic alignment. No concerning lytic or blastic osseous lesion. No postcontrast marrow enhancement. Diffuse atrophy and edema throughout the visualized musculature with prominent fatty replacement. No acute muscle or tendon tear or enhancement to suggest acute injury. No soft tissue mass or fluid collection. MR/MR lower leg LT wo/w con IMPRESSION: 1. Soft tissue ulceration/skin defect over the anteromedial aspect of the lower tibia with adjacent soft tissue edema and enhancement, likely indicating chronic cellulitis. No organized fluid collection or abscess formation. 2. Redemonstration of the tibial fracture line adjacent to the soft tissue ulceration with a new, linear area of increased T2 signal extending into the marrow cavity. No associated postcontrast enhancement or intramedullary abscess formation. Findings could indicate early osteomyelitis in the appropriate clinical setting. 3. Chronic fibular fractures in unchanged anatomic alignment. 4. Diffuse atrophy and edema throughout the visualized musculature with prominent fatty replacement, similar when compared to the prior examination.
--- NOTE | ~2023-03-10 | XR_ITS ---
EXAMINATION: XR CHEST CLINICAL INFORMATION: Reason for Exam Fall COMPARISON: Chest radiograph 11/06/2018 TECHNIQUE: One view of the chest FINDINGS: Lines and tubes: Median sternotomy wires and mediastinal surgical clips. EKG leads overlie the patient. Clear lungs. Possible trace right pleural effusion. No pneumothorax. Unchanged cardiomediastinal silhouette. No displaced rib fracture appreciated however chest radiographs have limited sensitivity and the ribs were incompletely imaged. XR/XR chest 1V IMPRESSION: 1. Possible trace right pleural effusion, which could be confirmed lateral radiographs. 2. Clear lungs. 3. No displaced rib fracture appreciated however chest radiographs have limited sensitivity and the ribs were incompletely imaged.
--- NOTE | ~2023-03-10 | CT_ITS ---
EXAMINATION: CT HEAD WITHOUT CONTRAST CT CERVICAL SPINE WITHOUT CONTRAST CLINICAL INFORMATION: Fall. COMPARISON: CT head from 03/06/2023. TECHNIQUE: Contiguous axial imaging was performed from the skull base to vertex without intravenous administration of contrast. Contiguous axial imaging was performed from the upper chest through the skull base without intravenous administration of contrast. Coronal and sagittal reformats were obtained at the acquisition workstation. This CT examination was performed using dose optimization techniques as appropriate, variously including the following: *Automated exposure control. *Adjustment of mA and/or kV according to patient size (this includes techniques or standardized protocols for targeted exams where dose is matched to indication/reason for exam; i.e. extremities or head). *Use of iterative reconstruction technique. DLP: 1108 mGy-cm FINDINGS: Head: There is chronic encephalomalacia within the left occipital lobe with associated volume loss. Small chronic lacunar infarcts of the bilateral lentiform nuclei and right cerebellar hemisphere. No additional loss of arrington-white matter differentiation. No evidence of acute intracranial hemorrhage. There is no abnormal attenuation within the brain parenchyma. The ventricles are normal in morphology and size. No evidence for obstructive hydrocephalus. No abnormal mass effect or midline shift. No extra-axial fluid collections. Small subgaleal hematomas along the posterior vertex and right aspect of the frontal bone, measuring up to 0.8 cm in depth. No associated acute osseous abnormalities. Atelectasis of the maxillary sinuses bilaterally. Mild mucosal thickening of the paranasal sinuses. The mastoid air cells and middle ear cavities are clear. Cervical Spine: The atlantooccipital and atlantoaxial articulations remain well aligned. Straightening of the normal cervical lordosis. Mild degenerative retrolisthesis of C3 on C4. Mild degenerative stepwise retrolistheses of C4-C7. Moderate degenerative anterolisthesis of C7 on T1. No evidence of acute fracture or subluxation. The vertebral body heights are maintained. Advanced degenerative disc disease from C4-C7 and T1-T3. Facet and uncovertebral joint arthropathy leads to osseous encroachment on the neural foramina from C3-T2. There is no prevertebral soft tissue swelling. The thyroid gland and remaining cervical soft tissues are within normal limits. Moderate centrilobular emphysema the visualized lung apices. CT/CT cervical spine wo IV con IMPRESSION: 1. No evidence of acute intracranial hemorrhage or edematous territorial infarction. 2. Chronic encephalomalacia of the left occipital lobe. Small chronic lacunar infarcts of the bilateral lentiform nuclei and right cerebellar hemisphere. 3. No evidence of acute fracture or traumatic subluxation of the cervical spine. 4. Moderate multilevel degenerative spondyloarthropathy of the cervical spine. 5. Emphysema.
[2023-03-10 13:42] VITALS: BP 151/82; BP 180/80; PULSE 113; PULSE 115; RESP 18; TEMP 36.9; O2SAT 96; BMI 24.5
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
--- NOTE | 2023-03-10 14:11 | ECG_ITS ---
Test Reason : SEPSIS Blood Pressure : / mmHG Vent. Rate : 114 BPM Atrial Rate : 114 BPM P-R Int : 158 ms QRS Dur : 144 ms QT Int : 356 ms P-R-T Axes : 067 085 037 degrees QTc Int : 490 ms Sinus tachycardia with Premature atrial complexes with Aberrant conduction Right bundle branch block Inferior infarct (cited on or before 21-JUN-2018) Abnormal ECG When compared with ECG of 29-JUL-2022 16:37, Aberrant conduction is now Present Vent. rate has increased BY 40 BPM Right bundle branch block is now Present Referred By: Selin Bennett Electronically Signed By:RAÚL LEE MD
--- NOTE | 2023-03-10 15:32 | PC.NURSE ---
20G IV placed to the RAC.
[2023-03-10 15:34] VITALS: PULSE 109; RESP 23; O2SAT 98
[2023-03-10] MEDS: 0.9 % Sodium Chloride 1,000 ML 999 ML IV ×2 (15:55→15:57)
[2023-03-10 15:56] LABS: MANUAL DIFF FLAG NO
[2023-03-10 16:01] LABS: Basophils Absolute Auto 0.1 X10*3/uL (0.0-0.2); Basophils Percent Auto 0.4 % (0-2); Eosinophils Percent Auto 0.3 % (0-4); Hematocrit 31.1 % (42.0-52.0); Hemoglobin 9.9 g/dl (14.0-18.0); Imm Gran Abs Auto 0.09 X10*3/uL (0.00-0.03); Imm Gran Pct Auto 0.7 % (0.0-0.4); Lymphocytes Absolute Auto 2.3 X10*3/uL (1.2-4.9); Lymphocytes Percent Auto 16.6 % (20-40); Mean Corpuscular HGB Conc 31.8 g/dl (31.0-36.0); Mean Corpuscular Hemoglobin 28.1 pg (27.0-33.0); Mean Corpuscular Volume 88.4 fL (80.0-98.0); Mean Platelet Volume 8.7 fL (9.4-12.4); Monocytes Absolute Auto 1.3 X10*3/uL (0.1-1.2); Monocytes Percent Auto 9.5 % (2-11); Neutrophils Absolute Auto 9.9 x10*3/uL (2.0-8.3); Neutrophils Percent Auto 72.5 % (45-73); Platelet Count 415 X10*3/uL (160-400); Red Blood Count 3.52 X10*6/uL (4.60-5.80); Red Cell Distribution Width 15.2 % (11.0-16.0); White Blood Count 13.6 X10*3/uL (4.8-10.8)
[2023-03-10 16:09] LABS: Lactic Acid 1.4 mmol/L (0.5-2.0)
[2023-03-10 16:14] LABS: Alanine Aminotransferase 49 U/L (0-40); Alkaline Phosphatase 98 U/L (39-117); Anion Gap 13 (12-20); Aspartate Amino Transferase 73 U/L (5-37); Bilirubin Direct 0.3 mg/dL (0.0-0.5); Bilirubin Total 0.5 mg/dL (0.0-1.0); Blood Urea Nitrogen 17 mg/dL (9-16); C Reactive Protein 19.51 mg/dL (< or = 0.50); Calcium 9.1 mg/dL (8.4-10.2); Carbon Dioxide 25 mmol/L (22-29); Chloride 102 mmol/L (96-108); Creatinine Clr Calc Pharmacy 90.4; Estimated Glomerular Filt Rate > 60; Glucose Random 125 mg/dL (60-115); Lipase 51 U/L (8-78); Potassium 3.7 mmol/L (3.3-5.1); Sodium 136 mmol/L (135-145); Total Protein 7.8 g/dL (6.5-8.0)
[2023-03-10 16:21] LABS: Troponin-I High Sensitivity 16.4 ng/L (<3.5-35.0)
[2023-03-10] MEDS: cefEPime HCl 2 GM in 0.9 % Sodium Chloride 50 ML IV (16:32)
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
[2023-03-10 17:08] LABS: Erythrocyte Sedimentation Rate 96 MM/HR (0-15)
--- NOTE | 2023-03-10 17:16 | PHA.MEDREC ---
Pharmacy Consult ? Medication Reconciliation Pharmacy has completed the medication reconciliation. Patient confirmed medications. Patient's niece also had a list of medications. Rosa Lopez, JackieD
[2023-03-10] MEDS: vancomycin HCL 1,000 MG, vancomycin HCL 750 MG in 0.9 % Sodium Chloride 500 ML 267.5 MG IV (18:00)
--- NOTE | 2023-03-10 18:11 | PC.NURSE ---
late entry: pt a&o x4, pleasant, calm, and cooperative. pt has chronic wound to LLE and has wound care services. wound examined and dressed by Dr. Bennett. pt medicated per jul. after imaging, pt given the 'ok' by provider to eat. pt tolerated well. pt here with niece at bedside. pt unable to ambulate, given urinal. INOCENCIO Walter currently with pt, examining and redressing LLE wound. rr even/unlabored. call johnson within pt reach. awaiting admit orders. all pt needs met kalyn. plan of care ongoing.
[2023-03-10 18:28] VITALS: BP 145/68; PULSE 117; RESP 19; O2SAT 95
--- NOTE | 2023-03-10 19:55 | PC.NURSE ---
report given to upstairs nurse
[2023-03-10 20:00] VITALS: BP 167/75; PULSE 113; RESP 18; TEMP 37.3; O2SAT 97
[2023-03-10 20:26] VITALS: BMI 25.9
[2023-03-10] MEDS: Metoprolol Tartrate 25 MG TABLET PO (20:59)
[2023-03-10] MEDS: traZODone HCL 25 MG HALFTAB PO (20:59)
[2023-03-10] MEDS: Acetaminophen 325 MG TABLET 650 MG PO (20:59)
[2023-03-10] MEDS: 0.9 % Sodium Chloride Flush 3 ML SYRINGE IVFLUSH (21:00)
--- NOTE | 2023-03-10 21:58 | HO.SKINPHOTO ---
Location: left leg Category: Stage: Length: Width: Depth: cm
[2023-03-10 23:20] VITALS: BP 164/75; PULSE 99; RESP 16; TEMP 37.1; O2SAT 94
[2023-03-11] MEDS: cefEPime HCl 2 GM in 0.9 % Sodium Chloride 50 ML IV ×3 (00:26→15:37)
[2023-03-11] MEDS: vancomycin HCL 1,000 MG in 0.9 % Sodium Chloride 250 ML 270 MG IV ×2 (06:12→17:27)
[2023-03-11 06:42] LABS: Hematocrit 27.6 % (42.0-52.0); Hemoglobin 8.6 g/dl (14.0-18.0); Mean Corpuscular HGB Conc 31.2 g/dl (31.0-36.0); Mean Corpuscular Hemoglobin 27.9 pg (27.0-33.0); Mean Corpuscular Volume 89.6 fL (80.0-98.0); Mean Platelet Volume 8.9 fL (9.4-12.4); Platelet Count 402 X10*3/uL (160-400); Red Blood Count 3.08 X10*6/uL (4.60-5.80); Red Cell Distribution Width 15.6 % (11.0-16.0); White Blood Count 11.9 X10*3/uL (4.8-10.8)
[2023-03-11 06:57] LABS: Anion Gap 12 (12-20); Blood Urea Nitrogen 11 mg/dL (9-16); Calcium 8.2 mg/dL (8.4-10.2); Carbon Dioxide 24 mmol/L (22-29); Chloride 107 mmol/L (96-108); Creatinine Clr Calc Pharmacy 87.8; Estimated Glomerular Filt Rate > 60; Glucose Random 104 mg/dL (60-115); Potassium 3.5 mmol/L (3.3-5.1); Sodium 139 mmol/L (135-145)
[2023-03-11 07:21] VITALS: BP 140/72; PULSE 82; RESP 20; TEMP 37.2; O2SAT 96
[2023-03-11] MEDS: 0.9 % Sodium Chloride Flush 3 ML SYRINGE IVFLUSH ×2 (07:46→15:39)
--- NOTE | 2023-03-11 09:14 | P.CONGS_ITS ---
History of Present Illness Consult details Consult date: 03/11/23 Requesting physician: Saba Fowler Narrative: 73-year-old male patient with history of chronic stasis ulcer of the left briseno, [facility]. He was recently started on hyperbaric treatment. While at home the patient fell multiple times and was finally convinced to presents to the emergency department. Workup revealed a closed left hip fracture. Surgical consultation was requested for wound management. Review of Systems 2 Review of Systems: Yes all other systems are reviewed and are negative [facility] Past Medical History Medical History (Updated 03/11/23 @ 09:18 by Alejandro Jeffries MD) MDD (major depressive disorder) PVD (peripheral vascular disease) HLD (hyperlipidemia) CAD (coronary artery disease) Vertebrobasilar artery syndrome Osteomyelitis Hypertension Social History Social History Household Members: None Housing: House Do you presently have visiting nurse or other home services: Yes Unable to assess alcohol history related to: Refusing to respond Patient Tobacco Use Status: Former Tobacco user Smoked in Last 30 Days: No Use of substances other than those prescribed or required for medical reasons: No Currently Displaying Signs/Symptoms of Drug Intoxication Withdrawal: No Any prior treatment program specific to substance use: No Have you been hit, kicked, punched, or otherwise hurt by someone within the past year? If so, by whom?: No Do you feel safe in your current relationship?: Yes Is there a partner from a previous relationship who is making you feel unsafe now?: No Are you made to feel afraid or neglected: No Advance Directives: Yes Advance Directives on File: Yes Advance Directives Date on File: 03/10/23 Do you have thoughts of harming others: None Do you have a plan to hurt others: No Plan Recently lost weight without trying: No Eating poorly because of decreased appetite: Yes Nutrition Risks: No Nutritional Risk Meds Allergies Allergy/AdvReac Type Severity Reaction Status Date / Time No Known Allergies Allergy Mild N/A Verified 10/31/22 14:39 Active Medications: Current Medications Acetaminophen (Acetaminophen 325 Mg Tablet) 650 mg PO Q6H PRN PRN Reason: Pain, Mild (Pain Scale 1-3) Last Admin: 03/10/23 20:59 Dose: 650 mg Atorvastatin Calcium (Atorvastatin Calcium 80 Mg Tablet) 80 mg PO DAILY [facility] Bupropion HCl (Bupropion Hcl Xl 300 Mg Tab.Er.24h) 300 mg PO DAILY [facility] Docusate Sodium (Docusate Sodium 100 Mg Capsule) 100 mg PO DAILY PRN PRN Reason: Constipation Furosemide (Furosemide 40 Mg Tablet) 40 mg PO DAILY [facility]; Protocol Last Admin: 03/10/23 20:56 Dose: Not Given Cefepime HCl 2 gm/ Sodium (Chloride) 50 mls @ 100 mls/hr IV Q8H [facility] Last Admin: 03/11/23 08:19 Dose: 100 mls/hr Vancomycin HCl 1,000 mg/ (Sodium Chloride) 270 mls @ 270 mls/hr IV Q12H [facility] Last Infusion: 03/11/23 07:14 Dose: Infused Lisinopril (Lisinopril 20 Mg Tablet) 20 mg PO DAILY [facility]; Protocol Loratadine (Loratadine 10 Mg Tablet) 10 mg PO DAILY PRN PRN Reason: Allergy Symptoms Lorazepam (Lorazepam 0.5 Mg Tablet) 0.5 mg PO DAILY PRN PRN Reason: Anxiety Metoprolol Tartrate (Metoprolol Tartrate 25 Mg Tablet) 25 mg PO BID [facility]; Protocol Last Admin: 03/10/23 20:59 Dose: 25 mg Morphine Sulfate (Morphine Sulfate 4 Mg/Ml Cartridge) 2 mg IVPUSH Q4H PRN; Protocol PRN Reason: Pain, Severe (Pain Scale 7-10) Ondansetron HCl (Ondansetron Hcl 4 Mg/2 Ml Vial) 4 mg IVPUSH Q8H PRN PRN Reason: Nausea and Vomiting Pharmacy Consult (Consult Rx Vancomycin Dosing) 1 each MISCELLANE DAILY PRN PRN Reason: Consult order Sodium Chloride (0.9 % Sodium Chloride Flush 3 Ml Syringe) 3 ml IVFLUSH QSHIFT [facility] Last Admin: 03/11/23 07:46 Dose: 3 ml Sodium Chloride (0.9 % Sodium Chloride Flush 3 Ml Syringe) 3 ml IVFLUSH [facility] Last Admin: 03/11/23 07:46 Dose: Not Given Trazodone HCl (Trazodone Hcl 25 Mg Halftab) 25 mg PO DAILY [facility] Last Admin: 03/10/23 20:59 Dose: 25 mg Home Medications Medication Instructions Recorded Confirmed Last Taken Type aspirin 81 mg tablet,delayed 81 mg PO DAILY 09/21/22 03/10/23 Unknown History release atorvastatin 80 mg tablet 80 mg PO DAILY 09/21/22 03/10/23 Unknown History bupropion HCl 300 mg 24 hr tablet, 300 mg PO QAM 09/21/22 03/10/23 Unknown History extended release cetirizine 10 mg capsule (Zyrtec) 10 mg PO DAILY PRN Allergy Symptoms 09/21/22 03/10/23 Unknown History clopidogrel 75 mg tablet 75 mg PO DAILY 09/21/22 03/10/23 Unknown History lisinopril 20 mg tablet 20 mg PO DAILY 09/21/22 03/10/23 Unknown History trazodone 50 mg tablet 25 mg PO DAILY 09/21/22 03/10/23 Unknown History collagenase clostridium histo. 250 1 appl topical DAILY PRN Wound Care 03/10/23 03/10/23 Unknown History unit/gram topical ointment (Santyl) furosemide 40 mg tablet 40 mg PO QAM 03/10/23 03/10/23 Unknown History lorazepam 0.5 mg tablet 0.5 mg PO DAILY PRN Anxiety 03/10/23 03/10/23 Unknown History metoprolol tartrate 25 mg tablet 25 mg PO BID 03/10/23 03/10/23 Unknown History Physical Exam 2 Vital Signs: Vital Signs: Last Vital Signs Temp 98.9 F 03/11/23 07:21 Pulse 82 03/11/23 07:21 Resp 20 03/11/23 07:21 BP 140/72 H 03/11/23 07:21 Pulse Ox 96 03/11/23 07:21 O2 Del Method Room Air 03/11/23 07:21 BMI result Body Mass Index 25.9 Const: General: alert and awake Nutritional Appearance: well nourished O rientation/consciousness: patient oriented x3 HEENT: Head: Yes normocephalic Resp: Effort & Inspection: normal respiratory effort, no audible wheezes, Actively coughing and no respiratory distress GI: Inspection: Yes normal to inspection Palpation (GI): Soft to palpation and nontender Skin: Other: See left extremity below Neuro: General: patient oriented x3 Extrem: Other: large pretibial ulcer located in mid briseno level measuring at least 8 cm in diameter. There is an area of granulation tissue within the subcutaneous tissue at the base of the wound. An island of non vital skin is noted within the central portion of the wound which moves with flexion and extension of the ankle. This is suggestive of an underlying tendon. Wound base is very sensitive to light touch. Wounds redressed with dry sterile dressings and Kerlix. Upper/lower leg/hip images: 1. Site of chronic ulceration Results Labs 03/11/23 06:08 03/11/23 06:08 Labs: Abnormal lab results 03/10/23 03/10/23 03/11/23 Range/Units 15:40 15:51 06:08 WBC 13.6 H 11.9 H (4.8-10.8) X10*3/uL RBC 3.52 L D 3.08 L (4.60-5.80) X10*6/uL Hgb 9.9 L D 8.6 L (14.0-18.0) g/dl Hct 31.1 L D 27.6 L (42.0-52.0) % Plt Count 415 H 402 H (160-400) X10*3/uL MPV 8.7 L 8.9 L (9.4-12.4) fL Immature Gran % (Auto) 0.7 H (0.0-0.4) % Lymph % (Auto) 16.6 L (20-40) % [place] # (Auto) 1.3 H (0.1-1.2) X10*3/uL Abs Immat Gran (auto) 0.09 H (0.00-0.03) X10*3/uL Absolute Neuts (auto) 9.9 H (2.0-8.3) x10*3/uL ESR 96 H (0-15) MM/HR BUN 17 H (9-16) mg/dL Random Glucose 125 H (60-115) mg/dL Calcium 8.2 L D (8.4-10.2) mg/dL AST 73 H (5-37) U/L ALT 49 H (0-40) U/L Total Creatine Kinase 220 H (38-174) U/L C-Reactive Protein 19.51 H (< or = 0.50) mg/dL Albumin 3.0 L (3.5-5.0) g/dL Short CBC 03/10/23 03/11/23 Range/Units 15:51 06:08 WBC 13.6 H 11.9 H (4.8-10.8) X10*3/uL Hgb 9.9 L D 8.6 L (14.0-18.0) g/dl Hct 31.1 L D 27.6 L (42.0-52.0) % Plt Count 415 H 402 H (160-400) X10*3/uL BMP 03/10/23 03/11/23 15:40 06:08 Sodium 136 139 Potassium 3.7 3.5 Chloride 102 107 Carbon Dioxide 25 24 BUN 17 H 11 Creatinine 0.68 0.70 Calcium 9.1 8.2 L D Cardiac Enzymes 03/10/23 Range/Units 15:51 Total Creatine Kinase 220 H (38-174) U/L Liver Function 03/10/23 Range/Units 15:40 Total Bilirubin 0.5 (0.0-1.0) mg/dL Direct Bilirubin 0.3 (0.0-0.5) mg/dL AST 73 H (5-37) U/L ALT 49 H (0-40) U/L Alkaline Phosphatase 98 (39-117) U/L Albumin 3.0 L (3.5-5.0) g/dL All other labs normal. Assessment and Plan (1) Wound of left lower extremity: Qualifiers: Encounter type: initial encounter Qualified Code(s): S81.802A - Unspecified open wound, left lower leg, initial encounter Status: Acute Plan 73-year-old male patient presenting with a chronic ulceration in the left briseno. There is some evidence of granulation tissue noted at the margin but probable exposed tendon in the central portion of the wound. Recommended applying Santyl twice daily to the wound followed by fluffed gauze and Kerlix. Follow-up with wound care once patient is discharged. Procedures Date of Service Date of Service: 03/11/23
[2023-03-11] MEDS: Acetaminophen 325 MG TABLET 650 MG PO ×2 (09:24→20:52)
[2023-03-11 10:15] VITALS: BP 142/63; PULSE 91
[2023-03-11] MEDS: Atorvastatin Calcium 80 MG TABLET PO (10:31)
[2023-03-11] MEDS: lisinopriL 20 MG TABLET PO (10:31)
[2023-03-11] MEDS: Furosemide 40 MG TABLET PO (10:31)
[2023-03-11] MEDS: Metoprolol Tartrate 25 MG TABLET PO ×2 (10:31→20:52)
[2023-03-11] MEDS: buPROPion HCl XL 300 MG TAB.ER.24H PO (10:31)
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
--- NOTE | 2023-03-11 14:44 | HO.PM.IMPN ---
Subjective Subjective Date of Service: 03/11/23 Interval History: No acute issues overnight. Pain control fair. Seen by Ortho. Review of Systems Denies chest pain Denies shortness of breath Denies nausea vomiting diarrhea Denies fever chills Physical Exam Vital Signs: Vital Signs: Last Vital Signs Temp 98.9 F 03/11/23 07:21 Pulse 91 03/11/23 10:15 Resp 20 03/11/23 07:21 BP 142/63 H 03/11/23 10:15 Pulse Ox 96 03/11/23 07:21 O2 Del Method Room Air 03/11/23 07:21 BMI result Body Mass Index 25.9 Const: Other: Awake alert no acute distress Resp: Other: Clear to auscultation bilaterally no rales rhonchi or wheezes Cardio: Other: No S4; positive S1-S2; no S3 murmurs rubs or gallops Extrem: Other: Pain left hip with movement Objective Data Active Medications Acetaminophen (Acetaminophen 325 Mg Tablet) 650 mg PO Q6H PRN PRN Reason: Pain, Mild (Pain Scale 1-3) Last Admin: 03/11/23 09:24 Dose: 650 mg Documented By: MARYJO Atorvastatin Calcium (Atorvastatin Calcium 80 Mg Tablet) 80 mg PO DAILY ON LICENSE OF [facility] Last Admin: 03/11/23 10:31 Dose: 80 mg Documented By: MARYJO Bupropion HCl (Bupropion Hcl Xl 300 Mg Tab.Er.24h) 300 mg PO DAILY ON LICENSE OF [facility] Last Admin: 03/11/23 10:31 Dose: 300 mg Documented By: MARYJO Collagenase (Collagenase Clostridium Hist. 30 Gm Tube) 1 appl TOPICAL BID ON LICENSE OF [facility]; Protocol Last Admin: 03/11/23 10:36 Dose: Not Given Documented By: MARYJO Non-Admin Reason: See Note Comments: not available, surgeon changed dressing this am Docusate Sodium (Docusate Sodium 100 Mg Capsule) 100 mg PO DAILY PRN PRN Reason: Constipation Furosemide (Furosemide 40 Mg Tablet) 40 mg PO DAILY ON LICENSE OF [facility]; Protocol Last Admin: 03/11/23 10:31 Dose: 40 mg Documented By: MARYJO Cefepime HCl 2 gm/ Sodium (Chloride) 50 mls @ 100 mls/hr IV Q8H ON LICENSE OF [facility] Last Infusion: 03/11/23 09:20 Dose: Infused Documented By: MARYJO Vancomycin HCl 1,000 mg/ (Sodium Chloride) 270 mls @ 270 mls/hr IV Q12H ON LICENSE OF [facility] Last Infusion: 03/11/23 07:14 Dose: Infused Documented By: BLANE Lisinopril (Lisinopril 20 Mg Tablet) 20 mg PO DAILY ON LICENSE OF [facility]; Protocol Last Admin: 03/11/23 10:31 Dose: 20 mg Documented By: MARYJO Loratadine (Loratadine 10 Mg Tablet) 10 mg PO DAILY PRN PRN Reason: Allergy Symptoms Lorazepam (Lorazepam 0.5 Mg Tablet) 0.5 mg PO DAILY PRN PRN Reason: Anxiety Metoprolol Tartrate (Metoprolol Tartrate 25 Mg Tablet) 25 mg PO BID ON LICENSE OF [facility]; Protocol Last Admin: 03/11/23 10:31 Dose: 25 mg Documented By: MARYJO Morphine Sulfate (Morphine Sulfate 4 Mg/Ml Cartridge) 4 mg IVPUSH Q4H PRN; Protocol PRN Reason: Pain, Severe (Pain Scale 7-10) Ondansetron HCl (Ondansetron Hcl 4 Mg/2 Ml Vial) 4 mg IVPUSH Q8H PRN PRN Reason: Nausea and Vomiting Pharmacy Consult (Consult Rx Vancomycin Dosing) 1 each MISCELLANE DAILY PRN PRN Reason: Consult order Sodium Chloride (0.9 % Sodium Chloride Flush 3 Ml Syringe) 3 ml IVFLUSH [facility] Last Admin: 03/11/23 07:46 Dose: 3 ml Documented By: BLANE Sodium Chloride (0.9 % Sodium Chloride Flush 3 Ml Syringe) 3 ml IVFLUSH [facility] Last Admin: 03/11/23 07:46 Dose: Not Given Documented By: BLANE Non-Admin Reason: No Access Trazodone HCl (Trazodone Hcl 25 Mg Halftab) 25 mg PO DAILY ON LICENSE OF [facility] Last Admin: 03/11/23 10:49 Dose: Not Given Documented By: BLANE Non-Admin Reason: Patient Refused Labs 03/11/23 06:08 03/11/23 06:08 Labs: Laboratory Results - last 24 hr 03/10/23 03/10/23 03/11/23 15:40 15:51 06:08 MCV 88.4 89.6 MCH 28.1 27.9 MCHC 31.8 31.2 RDW 15.2 15.6 Plt Count 415 H 402 H MPV 8.7 L 8.9 L Immature Gran % (Auto) 0.7 H Neut % (Auto) 72.5 Lymph % (Auto) 16.6 L [place] % (Auto) 9.5 Eos % (Auto) 0.3 Baso % (Auto) 0.4 Lymph # (Auto) 2.3 [place] # (Auto) 1.3 H Eos # (Auto) 0.0 Baso # (Auto) 0.1 Abs Immat Gran (auto) 0.09 H Absolute Neuts (auto) 9.9 H Absolute Nucleated RBC 0.000 0.000 Nucleated RBC % (auto) 0.0 0.0 ESR 96 H Anion Gap 13 12 Estim Creat Clear Calc 90.4 87.8 Estimated GFR > 60 > 60 Random Glucose 125 H 104 Lactic Acid 1.4 Calcium 9.1 8.2 L D Total Bilirubin 0.5 Direct Bilirubin 0.3 AST 73 H ALT 49 H Alkaline Phosphatase 98 Total Creatine Kinase 220 H C-Reactive Protein 19.51 H Total Protein 7.8 Albumin 3.0 L Lipase 51 Assessment and Plan (1) Closed fracture of left hip: Status: Acute (2) Osteomyelitis: Status: Acute (3) Hypertension: Status: Acute Plan Pt is a 73-year-old male with a PMH significant for?CAD s/p triple bypass in 2019, hx of left leg osteomyelitis, vertebrobasilar artery syndrome, cerebellar ataxia, HTN, HLD, PVD, and MDD who presents to the ED for evaluation of left hip pain after multiple falls at home during this past week. Pt will be admitted to the hospital for treatment further evaluation of left hip fracture and likely osteomyelitis of left lower leg. 1.Closed fracture of left hip -seen by Orthopedics; plan for OR in a.m. -NPO after midnight -hold aspirin, Plavix -morphine for pain 2.Chronic left lower leg wound concerning for osteomyelitis -vancomycin/cefepime(2) -dressings as per surgery 3.CAD/HLD -Hold aspirin, Plavix -Continue statin 4.HTN -acceptable control on current therapy -as indicated 5. History of alcohol use -observe on CIWA DNR/DNI Pneumatic boot on right foot only d/t left lower leg chronic nonhealing wound Patient will require ongoing hospitalization for IV antibiotics to treat likely osteomyelitis and for surgical repair of fractured left. Quality Stroke Does the patient have a stroke diagnosis?: No VTE Prior VTE?: No VTE Risk Level:: Medical - moderate - high VTE Device Contraindication: N/A - Device Ordered VTE Drug Contraindication: Treatment Not Indicated
--- NOTE | 2023-03-11 15:28 | MHC.CM.PN ---
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
[2023-03-11 15:32] VITALS: BP 112/55; PULSE 83; RESP 16; TEMP 36.4; O2SAT 95
[2023-03-11] MEDS: Morphine Sulfate 4 MG/ML CARTRIDGE IVPUSH (15:53)
[2023-03-11 16:22] LABS: Vancomycin Random 12.7 mcg/mL (15-20)
[2023-03-11 20:51] VITALS: BP 148/66; PULSE 86
[2023-03-11] MEDS: traZODone HCL 25 MG HALFTAB PO (20:51)
[2023-03-11 23:29] VITALS: BP 151/66; PULSE 68; RESP 18; TEMP 36.4; O2SAT 95
[2023-03-12] VITALS (10 sets, daily range): BP systolic 118–188; BP diastolic 59–79; PULSE 66–95; RESP 14–20; TEMP 36.1–37.1; O2SAT 95–100
[2023-03-12] MEDS: cefEPime HCl 2 GM in 0.9 % Sodium Chloride 50 ML IV ×4 (00:11→23:58)
[2023-03-12] MEDS: 0.9 % Sodium Chloride Flush 3 ML SYRINGE IVFLUSH ×4 (00:16→20:30)
[2023-03-12 05:26] LABS: MANUAL DIFF FLAG NO
[2023-03-12 05:30] LABS: Basophils Absolute Auto 0.1 X10*3/uL (0.0-0.2); Basophils Percent Auto 0.8 % (0-2); Eosinophils Absolute Auto 0.7 X10*3/uL (0.0-0.4); Eosinophils Percent Auto 6.1 % (0-4); Hematocrit 30.4 % (42.0-52.0); Hemoglobin 9.5 g/dl (14.0-18.0); Imm Gran Abs Auto 0.05 X10*3/uL (0.00-0.03); Imm Gran Pct Auto 0.5 % (0.0-0.4); Lymphocytes Absolute Auto 1.8 X10*3/uL (1.2-4.9); Mean Corpuscular HGB Conc 31.3 g/dl (31.0-36.0); Mean Corpuscular Hemoglobin 27.8 pg (27.0-33.0); Mean Corpuscular Volume 88.9 fL (80.0-98.0); Mean Platelet Volume 8.3 fL (9.4-12.4); Monocytes Absolute Auto 0.8 X10*3/uL (0.1-1.2); Monocytes Percent Auto 7.7 % (2-11); Neutrophils Absolute Auto 7.3 x10*3/uL (2.0-8.3); Neutrophils Percent Auto 67.9 % (45-73); Platelet Count 388 X10*3/uL (160-400); Red Blood Count 3.42 X10*6/uL (4.60-5.80); Red Cell Distribution Width 15.6 % (11.0-16.0); White Blood Count 10.8 X10*3/uL (4.8-10.8)
[2023-03-12 05:38] LABS: INTERNATIONAL NORM RATIO 1.1 (0.9-1.1); Prothrombin Time 12.8 SEC (11.1-13.3)
[2023-03-12 05:45] LABS: Alanine Aminotransferase 96 U/L (0-40); Albumin Level 2.5 g/dL (3.5-5.0); Alkaline Phosphatase 95 U/L (39-117); Anion Gap 13 (12-20); Aspartate Amino Transferase 111 U/L (5-37); Bilirubin Total 0.5 mg/dL (0.0-1.0); Blood Urea Nitrogen 12 mg/dL (9-16); Calcium 8.2 mg/dL (8.4-10.2); Carbon Dioxide 24 mmol/L (22-29); Chloride 103 mmol/L (96-108); Creatinine Clr Calc Pharmacy 87.8; Estimated Glomerular Filt Rate > 60; Glucose Fasting 105 mg/dL (60-99); Potassium 3.6 mmol/L (3.3-5.1); Sodium 136 mmol/L (135-145); Total Protein 6.7 g/dL (6.5-8.0)
[2023-03-12] MEDS: vancomycin HCL 1,000 MG in 0.9 % Sodium Chloride 250 ML 270 MG IV ×2 (05:56→17:26)
--- NOTE | 2023-03-12 08:57 | HO.ANESPROP2 ---
[facility] Active Problems Active Problems: All Active Problems (Updated 03/11/23 @ 09:18 by Alejandro Jeffries MD) Wound of left lower extremity (Acute) Closed fracture of left hip (Acute) Osteomyelitis (Acute) Hypertension (Acute) Past Medical History Medical History MDD (major depressive disorder) PVD (peripheral vascular disease) HLD (hyperlipidemia) CAD (coronary artery disease) Vertebrobasilar artery syndrome Osteomyelitis Hypertension Family History Family history of problems with anesthesia: No Surgical History History of Problems with Anesthesia: No Social History Social History Household Members: None Housing: House Do you presently have visiting nurse or other home services: Yes Unable to assess alcohol history related to: Refusing to respond Patient Tobacco Use Status: Former Tobacco user Smoked in Last 30 Days: No Use of substances other than those prescribed or required for medical reasons: No Currently Displaying Signs/Symptoms of Drug Intoxication Withdrawal: No Any prior treatment program specific to substance use: No Have you been hit, kicked, punched, or otherwise hurt by someone within the past year? If so, by whom?: No Do you feel safe in your current relationship?: Yes Is there a partner from a previous relationship who is making you feel unsafe now?: No Are you made to feel afraid or neglected: No Advance Directives: Yes Advance Directives on File: Yes Advance Directives Date on File: 03/10/23 Do you have thoughts of harming others: None Do you have a plan to hurt others: No Plan Recently lost weight without trying: No Eating poorly because of decreased appetite: Yes Nutrition Risks: No Nutritional Risk service: No Meds Allergies Allergy/AdvReac Type Severity Reaction Status Date / Time No Known Allergies Allergy Mild N/A Verified 10/31/22 14:39 Active Medications: Current Medications Acetaminophen (Acetaminophen 325 Mg Tablet) 650 mg PO Q6H PRN PRN Reason: Pain, Mild (Pain Scale 1-3) Last Admin: 03/11/23 20:52 Dose: 650 mg Atorvastatin Calcium (Atorvastatin Calcium 80 Mg Tablet) 80 mg PO DAILY [facility] Last Admin: 03/11/23 10:31 Dose: 80 mg Bupropion HCl (Bupropion Hcl Xl 300 Mg Tab.Er.24h) 300 mg PO DAILY [facility] Last Admin: 03/11/23 10:31 Dose: 300 mg Collagenase (Collagenase Clostridium Hist. 30 Gm Tube) 1 appl TOPICAL BID [facility]; Protocol Last Admin: 03/11/23 21:01 Dose: Not Given Docusate Sodium (Docusate Sodium 100 Mg Capsule) 100 mg PO DAILY PRN PRN Reason: Constipation Furosemide (Furosemide 40 Mg Tablet) 40 mg PO DAILY [facility]; Protocol Last Admin: 03/11/23 10:31 Dose: 40 mg Cefepime HCl 2 gm/ Sodium (Chloride) 50 mls @ 100 mls/hr IV Q8H [facility] Last Infusion: 03/12/23 08:54 Dose: Infused Vancomycin HCl 1,000 mg/ (Sodium Chloride) 270 mls @ 270 mls/hr IV Q12H [facility] Last Infusion: 03/12/23 07:48 Dose: Infused Lisinopril (Lisinopril 20 Mg Tablet) 20 mg PO DAILY [facility]; Protocol Last Admin: 03/11/23 10:31 Dose: 20 mg Loratadine (Loratadine 10 Mg Tablet) 10 mg PO DAILY PRN PRN Reason: Allergy Symptoms Lorazepam (Lorazepam 0.5 Mg Tablet) 0.5 mg PO DAILY PRN PRN Reason: Anxiety Metoprolol Tartrate (Metoprolol Tartrate 25 Mg Tablet) 25 mg PO BID [facility]; Protocol Last Admin: 03/11/23 20:52 Dose: 25 mg Morphine Sulfate (Morphine Sulfate 4 Mg/Ml Cartridge) 4 mg IVPUSH Q4H PRN; Protocol PRN Reason: Pain, Severe (Pain Scale 7-10) Last Admin: 03/11/23 15:53 Dose: 4 mg Ondansetron HCl (Ondansetron Hcl 4 Mg/2 Ml Vial) 4 mg IVPUSH Q8H PRN PRN Reason: Nausea and Vomiting Pharmacy Consult (Consult Rx Vancomycin Dosing) 1 each MISCELLANE DAILY PRN PRN Reason: Consult order Sodium Chloride (0.9 % Sodium Chloride Flush 3 Ml Syringe) 3 ml IVFLUSH [facility] Last Admin: 03/12/23 07:46 Dose: 3 ml Sodium Chloride (0.9 % Sodium Chloride Flush 3 Ml Syringe) 3 ml IVFLUSH [facility] Last Admin: 03/12/23 07:47 Dose: Not Given Trazodone HCl (Trazodone Hcl 25 Mg Halftab) 25 mg PO BEDTIME [facility] Last Admin: 03/11/23 20:51 Dose: 25 mg Home Medications Medication Instructions Recorded Confirmed Last Taken Type aspirin 81 mg tablet,delayed 81 mg PO DAILY 09/21/22 03/10/23 Unknown History release atorvastatin 80 mg tablet 80 mg PO DAILY 09/21/22 03/10/23 Unknown History bupropion HCl 300 mg 24 hr tablet, 300 mg PO QAM 09/21/22 03/10/23 Unknown History extended release cetirizine 10 mg capsule (Zyrtec) 10 mg PO DAILY PRN Allergy Symptoms 09/21/22 03/10/23 Unknown History clopidogrel 75 mg tablet 75 mg PO DAILY 09/21/22 03/10/23 Unknown History lisinopril 20 mg tablet 20 mg PO DAILY 09/21/22 03/10/23 Unknown History trazodone 50 mg tablet 25 mg PO DAILY 09/21/22 03/10/23 Unknown History collagenase clostridium histo. 250 1 appl topical DAILY PRN Wound Care 03/10/23 03/10/23 Unknown History unit/gram topical ointment (Santyl) furosemide 40 mg tablet 40 mg PO QAM 03/10/23 03/10/23 Unknown History lorazepam 0.5 mg tablet 0.5 mg PO DAILY PRN Anxiety 03/10/23 03/10/23 Unknown History metoprolol tartrate 25 mg tablet 25 mg PO BID 03/10/23 03/10/23 Unknown History Exam Exam Date and Time: March 12, 2023 0857 Height,Weight and Vital Signs: Height 5 ft 7 in Weight 74.9 kg Last Vital Signs Temp 97.6 F 03/12/23 07:38 Pulse 77 03/12/23 07:38 Resp 16 03/12/23 07:38 BP 144/79 H 03/12/23 07:38 Pulse Ox 98 03/12/23 07:38 O2 Del Method Room Air 03/12/23 07:38 Pertinent Lab Results Pertinent Lab Results: Laboratory Tests 03/10/23 03/10/23 03/11/23 15:40 15:51 06:08 WBC 13.6 H 11.9 H RBC 3.52 L D 3.08 L Hgb 9.9 L D 8.6 L Hct 31.1 L D 27.6 L MCV 88.4 89.6 MCH 28.1 27.9 MCHC 31.8 31.2 RDW 15.2 15.6 Plt Count 415 H 402 H MPV 8.7 L 8.9 L Immature Gran % (Auto) 0.7 H Neut % (Auto) 72.5 Lymph % (Auto) 16.6 L [place] % (Auto) 9.5 Eos % (Auto) 0.3 Baso % (Auto) 0.4 Lymph # (Auto) 2.3 [place] # (Auto) 1.3 H Eos # (Auto) 0.0 Baso # (Auto) 0.1 Abs Immat Gran (auto) 0.09 H Absolute Neuts (auto) 9.9 H Absolute Nucleated RBC 0.000 0.000 Nucleated RBC % (auto) 0.0 0.0 ESR 96 H PT INR Sodium 136 139 Potassium 3.7 3.5 Chloride 102 107 Carbon Dioxide 25 24 Anion Gap 13 12 BUN 17 H 11 Creatinine 0.68 0.70 Estim Creat Clear Calc 90.4 87.8 Estimated GFR > 60 > 60 Random Glucose 125 H 104 Fasting Glucose Lactic Acid 1.4 Calcium 9.1 8.2 L D Total Bilirubin 0.5 Direct Bilirubin 0.3 AST 73 H ALT 49 H Alkaline Phosphatase 98 Total Creatine Kinase 220 H Troponin I High Sens 16.4 C-Reactive Protein 19.51 H Total Protein 7.8 Albumin 3.0 L Lipase 51 Random Vancomycin 03/11/23 03/12/23 16:01 05:13 WBC 10.8 RBC 3.42 L Hgb 9.5 L Hct 30.4 L MCV 88.9 MCH 27.8 MCHC 31.3 RDW 15.6 Plt Count 388 MPV 8.3 L Immature Gran % (Auto) 0.5 H Neut % (Auto) 67.9 Lymph % (Auto) 17.0 L [place] % (Auto) 7.7 Eos % (Auto) 6.1 H Baso % (Auto) 0.8 Lymph # (Auto) 1.8 [place] # (Auto) 0.8 Eos # (Auto) 0.7 H Baso # (Auto) 0.1 Abs Immat Gran (auto) 0.05 H Absolute Neuts (auto) 7.3 Absolute Nucleated RBC 0.000 Nucleated RBC % (auto) 0.0 ESR PT 12.8 INR 1.1 Sodium 136 Potassium 3.6 Chloride 103 Carbon Dioxide 24 Anion Gap 13 BUN 12 Creatinine 0.70 Estim Creat Clear Calc 87.8 Estimated GFR > 60 Random Glucose Fasting Glucose 105 H Lactic Acid Calcium 8.2 L Total Bilirubin 0.5 Direct Bilirubin AST 111 H ALT 96 H Alkaline Phosphatase 95 Total Creatine Kinase Troponin I High Sens C-Reactive Protein Total Protein 6.7 Albumin 2.5 L Lipase Random Vancomycin 12.7 L Airway Mallampati Class: II TM Dist: >3cm Neck ROM: Full Heart: RRR Lungs: CTA Assessment and Plan Final Anesthetic Review Family History of Problems with Anesthesia: No History of Problems with Anesthesia: No ASA Class: III and Emergency Final Preanesthetic Review: Meds/Allgs Chart Reviewed, Consent Obtained/Reviewed, Anes Risks/Benef Reviewed and DNR Form (If Appl.) Patient Risk: Intermediate Procedure Risk: Intermediate Anesthetic Plan Anesthetic Plan: GA Disposition: Standard PACU
[2023-03-12] MEDS: Metoprolol Tartrate 25 MG TABLET PO ×2 (09:02→20:30)
--- NOTE | 2023-03-12 10:43 | HO.ANESPROP2 ---
[facility] Active Problems Active Problems: All Active Problems (Updated 03/11/23 @ 09:18 by Alejandro Jeffries MD) Wound of left lower extremity (Acute) Closed fracture of left hip (Acute) Osteomyelitis (Acute) Hypertension (Acute) Past Medical History Medical History MDD (major depressive disorder) PVD (peripheral vascular disease) HLD (hyperlipidemia) CAD (coronary artery disease) Vertebrobasilar artery syndrome Osteomyelitis Hypertension Family History Family history of problems with anesthesia: No Surgical History History of Problems with Anesthesia: No Social History Social History Household Members: None Housing: House Do you presently have visiting nurse or other home services: Yes Unable to assess alcohol history related to: Refusing to respond Patient Tobacco Use Status: Former Tobacco user Smoked in Last 30 Days: No Use of substances other than those prescribed or required for medical reasons: No Currently Displaying Signs/Symptoms of Drug Intoxication Withdrawal: No Any prior treatment program specific to substance use: No Have you been hit, kicked, punched, or otherwise hurt by someone within the past year? If so, by whom?: No Do you feel safe in your current relationship?: Yes Is there a partner from a previous relationship who is making you feel unsafe now?: No Are you made to feel afraid or neglected: No Advance Directives: Yes Advance Directives on File: Yes Advance Directives Date on File: 03/10/23 Do you have thoughts of harming others: None Do you have a plan to hurt others: No Plan Recently lost weight without trying: No Eating poorly because of decreased appetite: Yes Nutrition Risks: No Nutritional Risk service: No Meds Allergies Allergy/AdvReac Type Severity Reaction Status Date / Time No Known Allergies Allergy Mild N/A Verified 10/31/22 14:39 Active Medications: Current Medications Acetaminophen (Acetaminophen 325 Mg Tablet) 650 mg PO Q6H PRN PRN Reason: Pain, Mild (Pain Scale 1-3) Last Admin: 03/11/23 20:52 Dose: 650 mg Atorvastatin Calcium (Atorvastatin Calcium 80 Mg Tablet) 80 mg PO DAILY [facility] Last Admin: 03/11/23 10:31 Dose: 80 mg Bupropion HCl (Bupropion Hcl Xl 300 Mg Tab.Er.24h) 300 mg PO DAILY [facility] Last Admin: 03/11/23 10:31 Dose: 300 mg Collagenase (Collagenase Clostridium Hist. 30 Gm Tube) 1 appl TOPICAL BID [facility]; Protocol Last Admin: 03/11/23 21:01 Dose: Not Given Docusate Sodium (Docusate Sodium 100 Mg Capsule) 100 mg PO DAILY PRN PRN Reason: Constipation Fentanyl (Fentanyl Citrate/Pf 100 Mcg/2 Ml Vial) 25 mcg IVPUSH Q5M PRN; Protocol PRN Reason: Pain, Moderate(Pain Scale 4-6) Furosemide (Furosemide 40 Mg Tablet) 40 mg PO DAILY [facility]; Protocol Last Admin: 03/11/23 10:31 Dose: 40 mg Cefepime HCl 2 gm/ Sodium (Chloride) 50 mls @ 100 mls/hr IV Q8H [facility] Last Infusion: 03/12/23 08:54 Dose: Infused Vancomycin HCl 1,000 mg/ (Sodium Chloride) 270 mls @ 270 mls/hr IV Q12H [facility] Last Infusion: 03/12/23 07:48 Dose: Infused Acetaminophen (Ofirmev) 1,000 mg in 100 mls @ 400 mls/hr IV ONCE ONE Stop: 03/12/23 10:54 Lisinopril (Lisinopril 20 Mg Tablet) 20 mg PO DAILY [facility]; Protocol Last Admin: 03/11/23 10:31 Dose: 20 mg Loratadine (Loratadine 10 Mg Tablet) 10 mg PO DAILY PRN PRN Reason: Allergy Symptoms Lorazepam (Lorazepam 0.5 Mg Tablet) 0.5 mg PO DAILY PRN PRN Reason: Anxiety Metoprolol Tartrate (Metoprolol Tartrate 25 Mg Tablet) 25 mg PO BID [facility]; Protocol Last Admin: 03/12/23 09:02 Dose: 25 mg Morphine Sulfate (Morphine Sulfate 4 Mg/Ml Cartridge) 4 mg IVPUSH Q4H PRN; Protocol PRN Reason: Pain, Severe (Pain Scale 7-10) Last Admin: 03/11/23 15:53 Dose: 4 mg Ondansetron HCl (Ondansetron Hcl 4 Mg/2 Ml Vial) 4 mg IVPUSH Q8H PRN PRN Reason: Nausea and Vomiting Ondansetron HCl (Ondansetron Hcl 4 Mg/2 Ml Vial) 4 mg IVPUSH ONCE PRN PRN Reason: Nausea and Vomiting Pharmacy Consult (Consult Rx Vancomycin Dosing) 1 each MISCELLANE DAILY PRN PRN Reason: Consult order Sodium Chloride (0.9 % Sodium Chloride Flush 3 Ml Syringe) 3 ml IVFLUSH [facility] Last Admin: 03/12/23 07:46 Dose: 3 ml Sodium Chloride (0.9 % Sodium Chloride Flush 3 Ml Syringe) 3 ml IVFLUSH [facility] Last Admin: 03/12/23 07:47 Dose: Not Given Trazodone HCl (Trazodone Hcl 25 Mg Halftab) 25 mg PO BEDTIME [facility] Last Admin: 03/11/23 20:51 Dose: 25 mg Home Medications Medication Instructions Recorded Confirmed Last Taken Type aspirin 81 mg tablet,delayed 81 mg PO DAILY 09/21/22 03/10/23 Unknown History release atorvastatin 80 mg tablet 80 mg PO DAILY 09/21/22 03/10/23 Unknown History bupropion HCl 300 mg 24 hr tablet, 300 mg PO QAM 09/21/22 03/10/23 Unknown History extended release cetirizine 10 mg capsule (Zyrtec) 10 mg PO DAILY PRN Allergy Symptoms 09/21/22 03/10/23 Unknown History clopidogrel 75 mg tablet 75 mg PO DAILY 09/21/22 03/10/23 Unknown History lisinopril 20 mg tablet 20 mg PO DAILY 09/21/22 03/10/23 Unknown History trazodone 50 mg tablet 25 mg PO DAILY 09/21/22 03/10/23 Unknown History collagenase clostridium histo. 250 1 appl topical DAILY PRN Wound Care 03/10/23 03/10/23 Unknown History unit/gram topical ointment (Santyl) furosemide 40 mg tablet 40 mg PO QAM 03/10/23 03/10/23 Unknown History lorazepam 0.5 mg tablet 0.5 mg PO DAILY PRN Anxiety 03/10/23 03/10/23 Unknown History metoprolol tartrate 25 mg tablet 25 mg PO BID 03/10/23 03/10/23 Unknown History Exam Exam Date and Time: March 12, 2023 1043 Height,Weight and Vital Signs: Height 5 ft 7 in Weight 74.9 kg Last Vital Signs Temp 97.6 F 03/12/23 07:38 Pulse 77 03/12/23 07:38 Resp 16 03/12/23 07:38 BP 144/79 H 03/12/23 07:38 Pulse Ox 98 03/12/23 07:38 O2 Del Method Room Air 03/12/23 07:38 Pertinent Lab Results Pertinent Lab Results: Laboratory Tests 03/10/23 03/10/23 03/11/23 15:40 15:51 06:08 WBC 13.6 H 11.9 H RBC 3.52 L D 3.08 L Hgb 9.9 L D 8.6 L Hct 31.1 L D 27.6 L MCV 88.4 89.6 MCH 28.1 27.9 MCHC 31.8 31.2 RDW 15.2 15.6 Plt Count 415 H 402 H MPV 8.7 L 8.9 L Immature Gran % (Auto) 0.7 H Neut % (Auto) 72.5 Lymph % (Auto) 16.6 L [place] % (Auto) 9.5 Eos % (Auto) 0.3 Baso % (Auto) 0.4 Lymph # (Auto) 2.3 [place] # (Auto) 1.3 H Eos # (Auto) 0.0 Baso # (Auto) 0.1 Abs Immat Gran (auto) 0.09 H Absolute Neuts (auto) 9.9 H Absolute Nucleated RBC 0.000 0.000 Nucleated RBC % (auto) 0.0 0.0 ESR 96 H PT INR Sodium 136 139 Potassium 3.7 3.5 Chloride 102 107 Carbon Dioxide 25 24 Anion Gap 13 12 BUN 17 H 11 Creatinine 0.68 0.70 Estim Creat Clear Calc 90.4 87.8 Estimated GFR > 60 > 60 Random Glucose 125 H 104 Fasting Glucose Lactic Acid 1.4 Calcium 9.1 8.2 L D Total Bilirubin 0.5 Direct Bilirubin 0.3 AST 73 H ALT 49 H Alkaline Phosphatase 98 Total Creatine Kinase 220 H Troponin I High Sens 16.4 C-Reactive Protein 19.51 H Total Protein 7.8 Albumin 3.0 L Lipase 51 Random Vancomycin 03/11/23 03/12/23 16:01 05:13 WBC 10.8 RBC 3.42 L Hgb 9.5 L Hct 30.4 L MCV 88.9 MCH 27.8 MCHC 31.3 RDW 15.6 Plt Count 388 MPV 8.3 L Immature Gran % (Auto) 0.5 H Neut % (Auto) 67.9 Lymph % (Auto) 17.0 L [place] % (Auto) 7.7 Eos % (Auto) 6.1 H Baso % (Auto) 0.8 Lymph # (Auto) 1.8 [place] # (Auto) 0.8 Eos # (Auto) 0.7 H Baso # (Auto) 0.1 Abs Immat Gran (auto) 0.05 H Absolute Neuts (auto) 7.3 Absolute Nucleated RBC 0.000 Nucleated RBC % (auto) 0.0 ESR PT 12.8 INR 1.1 Sodium 136 Potassium 3.6 Chloride 103 Carbon Dioxide 24 Anion Gap 13 BUN 12 Creatinine 0.70 Estim Creat Clear Calc 87.8 Estimated GFR > 60 Random Glucose Fasting Glucose 105 H Lactic Acid Calcium 8.2 L Total Bilirubin 0.5 Direct Bilirubin AST 111 H ALT 96 H Alkaline Phosphatase 95 Total Creatine Kinase Troponin I High Sens C-Reactive Protein Total Protein 6.7 Albumin 2.5 L Lipase Random Vancomycin 12.7 L Airway Mallampati Class: II TM Dist: >3cm Neck ROM: Full Heart: RRR Lungs: CTA Assessment and Plan Final Anesthetic Review Family History of Problems with Anesthesia: No History of Problems with Anesthesia: No ASA Class: III and Emergency Final Preanesthetic Review: Meds/Allgs Chart Reviewed, Consent Obtained/Reviewed, Anes Risks/Benef Reviewed and DNR Form (If Appl.) Patient Risk: Intermediate Procedure Risk: Intermediate Anesthetic Plan Anesthetic Plan: GA Disposition: Standard PACU
--- NOTE | 2023-03-12 11:13 | P.BOP_ITS ---
Brief Operative Note Date of Service: 03/12/23 Pre-op diagnosis: left femoral neck fracture Post-op diagnosis: same Procedure: Left hip hemiarthroplasty Implants: Stryer #5 127 deg with + 4 Surgeon: Eleazar Devlin MD Anesthesia: GETA Was an Theology Teacher used for this Procedure?: Yes Theology Teacher: Gita Momin Estimated blood loss (mL): 200 IV fluids (mL): 1,000 Pathology: other Condition: stable Disposition: PACU
[2023-03-12] MEDS: Acetaminophen 1,000 MG/100 ML PIGGYBACK 400 MG IV (11:37)
[2023-03-12] MEDS: Collagenase Clostridium Hist. 30 GM TUBE 1 APPL TOPICAL ×2 (12:44→21:00)
--- NOTE | 2023-03-12 13:16 | P.PNIM_ITS ---
Subjective Subjective Date of Service: 03/12/23 Interval History: Doing well postop. Pain control adequate Review of Systems Unable to obtain. .. Somnolent from anesthesia Physical Exam 2 Vital Signs: Vital Signs: Last Vital Signs Temp 97.3 F 03/12/23 11:55 Pulse 71 03/12/23 11:55 Resp 18 03/12/23 11:55 BP 141/59 H 03/12/23 11:55 Pulse Ox 99 03/12/23 11:55 O2 Del Method Room Air 03/12/23 11:55 O2 Flow Rate 2 03/12/23 11:55 BMI result Body Mass Index 25.9 Const: Other: Somnolent but arousable Resp: Other: Clear to auscultation bilaterally no rales rhonchi or wheezes Cardio: Other: No S4; positive S1-S2; no S3 murmurs rubs or gallops GI: Other: Soft nontender nondistended normoactive bowel sounds Extrem: Other: No edema bilaterally. Left lower extremity CMS intact warm to touch Objective Data Active Medications Acetaminophen (Acetaminophen 325 Mg Tablet) 650 mg PO Q6H PRN PRN Reason: Pain, Mild (Pain Scale 1-3) Last Admin: 03/11/23 20:52 Dose: 650 mg Documented By: YESY Atorvastatin Calcium (Atorvastatin Calcium 80 Mg Tablet) 80 mg PO DAILY [facility] Last Admin: 03/12/23 12:43 Dose: Not Given Documented By: TAY Non-Admin Reason: NPO Bupropion HCl (Bupropion Hcl Xl 300 Mg Tab.Er.24h) 300 mg PO DAILY [facility] Last Admin: 03/12/23 12:43 Dose: Not Given Documented By: TAY Non-Admin Reason: NPO Collagenase (Collagenase Clostridium Hist. 30 Gm Tube) 1 appl TOPICAL BID [facility]; Protocol Last Admin: 03/12/23 12:44 Dose: 1 appl Documented By: TAY Docusate Sodium (Docusate Sodium 100 Mg Capsule) 100 mg PO DAILY PRN PRN Reason: Constipation Enoxaparin Sodium (Enoxaparin Sodium 40 Mg/0.4 Ml Syringe) 40 mg SUBCUT Q24H [facility] Fentanyl (Fentanyl Citrate/Pf 100 Mcg/2 Ml Vial) 25 mcg IVPUSH Q5M PRN; Protocol PRN Reason: Pain, Moderate(Pain Scale 4-6) Furosemide (Furosemide 40 Mg Tablet) 40 mg PO DAILY [facility]; Protocol Last Admin: 03/12/23 12:43 Dose: Not Given Documented By: TAY Non-Admin Reason: NPO Cefepime HCl 2 gm/ Sodium (Chloride) 50 mls @ 100 mls/hr IV Q8H [facility] Last Infusion: 03/12/23 08:54 Dose: Infused Documented By: TAY Vancomycin HCl 1,000 mg/ (Sodium Chloride) 270 mls @ 270 mls/hr IV Q12H [facility] Last Infusion: 03/12/23 07:48 Dose: Infused Documented By: TAY Lisinopril (Lisinopril 20 Mg Tablet) 20 mg PO DAILY [facility]; Protocol Last Admin: 03/12/23 12:43 Dose: Not Given Documented By: TAY Non-Admin Reason: NPO Loratadine (Loratadine 10 Mg Tablet) 10 mg PO DAILY PRN PRN Reason: Allergy Symptoms Lorazepam (Lorazepam 0.5 Mg Tablet) 0.5 mg PO DAILY PRN PRN Reason: Anxiety Metoprolol Tartrate (Metoprolol Tartrate 25 Mg Tablet) 25 mg PO BID [facility]; Protocol Last Admin: 03/12/23 09:02 Dose: 25 mg Documented By: TAY Morphine Sulfate (Morphine Sulfate 4 Mg/Ml Cartridge) 4 mg IVPUSH Q4H PRN; Protocol PRN Reason: Pain, Severe (Pain Scale 7-10) Last Admin: 03/11/23 15:53 Dose: 4 mg Documented By: ESTEFANÍA Ondansetron HCl (Ondansetron Hcl 4 Mg/2 Ml Vial) 4 mg IVPUSH Q8H PRN PRN Reason: Nausea and Vomiting Ondansetron HCl (Ondansetron Hcl 4 Mg/2 Ml Vial) 4 mg IVPUSH ONCE PRN PRN Reason: Nausea and Vomiting Pharmacy Consult (Consult Rx Vancomycin Dosing) 1 each MISCELLANE DAILY PRN PRN Reason: Consult order Sodium Chloride (0.9 % Sodium Chloride Flush 3 Ml Syringe) 3 ml IVFLUSH [facility] Last Admin: 03/12/23 07:46 Dose: 3 ml Documented By: TAY Sodium Chloride (0.9 % Sodium Chloride Flush 3 Ml Syringe) 3 ml IVFLUSH [facility] Last Admin: 03/12/23 07:47 Dose: Not Given Documented By: TAY Non-Admin Reason: Duplicate Order Trazodone HCl (Trazodone Hcl 25 Mg Halftab) 25 mg PO BEDTIME [facility] Last Admin: 03/11/23 20:51 Dose: 25 mg Documented By: YESY Labs 03/12/23 05:13 03/12/23 05:13 Labs: Laboratory Results - last 24 hr 03/11/23 03/12/23 16:01 05:13 MCV 88.9 MCH 27.8 MCHC 31.3 RDW 15.6 Plt Count 388 MPV 8.3 L Immature Gran % (Auto) 0.5 H Neut % (Auto) 67.9 Lymph % (Auto) 17.0 L [place] % (Auto) 7.7 Eos % (Auto) 6.1 H Baso % (Auto) 0.8 Lymph # (Auto) 1.8 [place] # (Auto) 0.8 Eos # (Auto) 0.7 H Baso # (Auto) 0.1 Abs Immat Gran (auto) 0.05 H Absolute Neuts (auto) 7.3 Absolute Nucleated RBC 0.000 Nucleated RBC % (auto) 0.0 PT 12.8 INR 1.1 Anion Gap 13 Estim Creat Clear Calc 87.8 Estimated GFR > 60 Fasting Glucose 105 H Calcium 8.2 L Total Bilirubin 0.5 AST 111 H ALT 96 H Alkaline Phosphatase 95 Total Protein 6.7 Albumin 2.5 L Random Vancomycin 12.7 L Microbiology Microbiology Results: Microbiology 03/10/23 15:40 Blood Culture - Preliminary Blood - Venous No growth after 24 hours. 03/10/23 15:40 Blood Culture - Preliminary Blood - Venous No growth after 24 hours. Assessment and Plan (1) Closed fracture of left hip: Status: Acute (2) Osteomyelitis: Status: Acute (3) Hypertension: Status: Acute Plan Pt is a 73-year-old male with a PMH significant for?CAD s/p triple bypass in 2019, hx of left leg osteomyelitis, vertebrobasilar artery syndrome, cerebellar ataxia, HTN, HLD, PVD, and MDD who presents to the ED for evaluation of left hip pain after multiple falls at home during this past week. Pt will be admitted to the hospital for treatment further evaluation of left hip fracture and likely osteomyelitis of left lower leg. 1.Closed fracture of left hip -no acute issues postop -hold aspirin, Plavix .... Restart when ortho deems appropriate -morphine for pain 2.Chronic left lower leg wound concerning for osteomyelitis -vancomycin/cefepime(3) -id consult in a.m. -dressings as per surgery 3.CAD/HLD -Hold aspirin, Plavix -Continue statin 4.HTN -acceptable control on current therapy -as indicated 5. History of alcohol use -observe on [facility] DNR/DNI Pneumatic boot on right foot only d/t left lower leg chronic nonhealing wound Patient will require ongoing hospitalization for IV antibiotics to treat likely osteomyelitis and for surgical repair of fractured left. Quality Stroke Does the patient have a stroke diagnosis?: No VTE Prior VTE?: No VTE Risk Level:: Medical - moderate - high VTE Device Contraindication: N/A - Device Ordered VTE Drug Contraindication: Treatment Not Indicated
[2023-03-12 16:28] LABS: Vancomycin Random 13.5 mcg/mL (15-20)
[2023-03-12] MEDS: Morphine Sulfate 4 MG/ML CARTRIDGE IVPUSH (17:25)
[2023-03-12] MEDS: traZODone HCL 25 MG HALFTAB PO (20:30)
[2023-03-13] MEDS: Morphine Sulfate 4 MG/ML CARTRIDGE IVPUSH (00:17)
[2023-03-13 02:58] VITALS: BP 154/69; PULSE 75; RESP 17; TEMP 37; O2SAT 96
[2023-03-13] MEDS: vancomycin HCL 1,000 MG in 0.9 % Sodium Chloride 250 ML 270 MG IV ×2 (05:43→17:56)
--- NOTE | 2023-03-13 05:48 | PM.PNORT ---
Subjective Subjective Date of Service: 03/13/23 Interval history: POD1 s/p LT HIP OSMANY Patient is resting in bed comfortably No overnight events Pain is managed No additional complaints Physical Exam Vital Signs: Vital Signs: Last Vital Signs Temp 98.6 F 03/13/23 02:58 Pulse 75 03/13/23 02:58 Resp 17 03/13/23 02:58 BP 154/69 H 03/13/23 02:58 Pulse Ox 96 03/13/23 02:58 O2 Del Method Room Air 03/13/23 02:58 O2 Flow Rate 2 03/12/23 19:34 BMI result Body Mass Index 25.9 Const: General: cooperative, healthy appearing and no acute distress Resp: Effort & Inspection: normal respiratory effort and able to speak in complete sentences Cardio: Rate: regular rate Peripheral pulses: Peripheral pulses 2+ throughout GI: Palpation (GI): Soft to palpation Skin: Lesions: no lesions Rashes: no rashes Extrem: Other: left hip dressing is c/d/i. Able to dorsi/plantar flex. Calf is supple and nontender. Sensation intact. Pedal pulse intact. Procedures Date of Service Date of Service: 03/13/23 Progress Note: A&P Assessment and plan (1) Osteomyelitis: Status: Acute (2) Hypertension: Status: Acute (3) Closed fracture of left hip: Status: Acute Assessment and Plan: Continue pain mgmnt Begin Lovenox for dvt ppx begin PT for Lt hip osmany - WBAT, posterior precautions Dispo planning-Pending PT eval, pain mgmnt Time Spent With Patient Time: Total time managing care of this patient today ____ minutes. Quality Stroke Does the patient have a stroke diagnosis?: No VTE Prior VTE?: No VTE Risk Level:: Medical - moderate - high VTE Device Contraindication: N/A - Device Ordered VTE Drug Contraindication: Treatment Not Indicated
[2023-03-13 06:03] LABS: MANUAL DIFF FLAG NO
[2023-03-13 06:22] LABS: Basophils Percent Auto 0.3 % (0-2); Eosinophils Percent Auto 0.2 % (0-4); Hematocrit 27.7 % (42.0-52.0); Hemoglobin 8.7 g/dl (14.0-18.0); Imm Gran Abs Auto 0.11 X10*3/uL (0.00-0.03); Imm Gran Pct Auto 0.8 % (0.0-0.4); Lymphocytes Absolute Auto 2.5 X10*3/uL (1.2-4.9); Lymphocytes Percent Auto 18.1 % (20-40); Mean Corpuscular HGB Conc 31.4 g/dl (31.0-36.0); Mean Corpuscular Hemoglobin 27.8 pg (27.0-33.0); Mean Corpuscular Volume 88.5 fL (80.0-98.0); Mean Platelet Volume 8.9 fL (9.4-12.4); Monocytes Absolute Auto 1.2 X10*3/uL (0.1-1.2); Monocytes Percent Auto 8.6 % (2-11); Neutrophils Absolute Auto 9.9 x10*3/uL (2.0-8.3); Platelet Count 413 X10*3/uL (160-400); Red Blood Count 3.13 X10*6/uL (4.60-5.80); Red Cell Distribution Width 15.2 % (11.0-16.0); White Blood Count 13.7 X10*3/uL (4.8-10.8)
[2023-03-13 06:25] LABS: Alanine Aminotransferase 68 U/L (0-40); Albumin Level 2.5 g/dL (3.5-5.0); Alkaline Phosphatase 77 U/L (39-117); Anion Gap 12 (12-20); Aspartate Amino Transferase 70 U/L (5-37); Bilirubin Total 0.5 mg/dL (0.0-1.0); Blood Urea Nitrogen 13 mg/dL (9-16); Calcium 8.4 mg/dL (8.4-10.2); Carbon Dioxide 26 mmol/L (22-29); Chloride 101 mmol/L (96-108); Creatinine Clr Calc Pharmacy 75.9; Estimated Glomerular Filt Rate > 60; Glucose Fasting 145 mg/dL (60-99); Potassium 4.3 mmol/L (3.3-5.1); Sodium 135 mmol/L (135-145); Total Protein 6.4 g/dL (6.5-8.0)
[2023-03-13 07:26] VITALS: BP 127/58; PULSE 82; RESP 16; TEMP 36.7; O2SAT 100
[2023-03-13] MEDS: Metoprolol Tartrate 25 MG TABLET PO ×2 (08:24→21:02)
[2023-03-13] MEDS: Atorvastatin Calcium 80 MG TABLET PO (08:24)
[2023-03-13] MEDS: Furosemide 40 MG TABLET PO (08:24)
[2023-03-13] MEDS: buPROPion HCl XL 300 MG TAB.ER.24H PO (08:24)
[2023-03-13] MEDS: Acetaminophen 325 MG TABLET 650 MG PO (08:24)
[2023-03-13] MEDS: lisinopriL 20 MG TABLET PO (08:24)
[2023-03-13] MEDS: Collagenase Clostridium Hist. 30 GM TUBE 1 APPL TOPICAL ×2 (08:30→21:00)
[2023-03-13] MEDS: cefEPime HCl 2 GM in 0.9 % Sodium Chloride 50 ML IV ×3 (08:53→23:58)
[2023-03-13] MEDS: Enoxaparin Sodium 40 MG/0.4 ML SYRINGE SUBCUT (10:16)
[2023-03-13 10:46] VITALS: O2SAT 99
[2023-03-13 11:45] VITALS: BP 100/60; PULSE 75; RESP 16; TEMP 36.9; O2SAT 97
--- NOTE | 2023-03-13 12:25 | MHC.CM.PN ---
per rounds pt not ready for dc pt needs an id onsult
--- NOTE | 2023-03-13 12:54 | P.PNIM_ITS ---
Subjective Subjective Date of Service: 03/13/23 Interval History: Offers no acute complaints good pain control left hip, denies fever, no chills, tolerating diet no nausea no vomiting no abdominal pain participating with physical therapy no acute issues overnight. Review of Systems All other system reviewed and negative. Physical Exam 2 Vital Signs: Vital Signs: Last Vital Signs Temp 98.4 F 03/13/23 11:45 Pulse 75 03/13/23 11:45 Resp 16 03/13/23 11:45 BP 100/60 03/13/23 11:45 Pulse Ox 97 03/13/23 11:45 O2 Del Method Room Air 03/13/23 11:45 O2 Flow Rate 2 03/13/23 07:26 BMI result Body Mass Index 25.9 Const: Other: General awake alert x3, in no acute distress. Neck supple no JVD. CVS regular rate rhythm, Respiratory lungs clear to auscultation, no respiratory distress, no wheeze, no rhonchi. Gastrointestinal abdomen soft, non tender, bowel sounds audible, no guarding , no rigidity. Extremities no edema. Left hip dressing in place Neuro nonfocal , speech clear. Skin left leg chronic ulcerated wound see picture on admission note Objective Data Active Medications Acetaminophen (Acetaminophen 325 Mg Tablet) 650 mg PO Q6H PRN PRN Reason: Pain, Mild (Pain Scale 1-3) Last Admin: 03/13/23 08:24 Dose: 650 mg Documented By: COLEEN Atorvastatin Calcium (Atorvastatin Calcium 80 Mg Tablet) 80 mg PO DAILY [facility] Last Admin: 03/13/23 08:24 Dose: 80 mg Documented By: COLEEN Bupropion HCl (Bupropion Hcl Xl 300 Mg Tab.Er.24h) 300 mg PO DAILY [facility] Last Admin: 03/13/23 08:24 Dose: 300 mg Documented By: COLEEN Collagenase (Collagenase Clostridium Hist. 30 Gm Tube) 1 appl TOPICAL BID [facility]; Protocol Last Admin: 03/13/23 08:30 Dose: 1 appl Documented By: COLEEN Docusate Sodium (Docusate Sodium 100 Mg Capsule) 100 mg PO DAILY PRN PRN Reason: Constipation Enoxaparin Sodium (Enoxaparin Sodium 40 Mg/0.4 Ml Syringe) 40 mg SUBCUT Q24H [facility] Last Admin: 03/13/23 10:16 Dose: 40 mg Documented By: COLEEN Fentanyl (Fentanyl Citrate/Pf 100 Mcg/2 Ml Vial) 25 mcg IVPUSH Q5M PRN; Protocol PRN Reason: Pain, Moderate(Pain Scale 4-6) Furosemide (Furosemide 40 Mg Tablet) 40 mg PO DAILY [facility]; Protocol Last Admin: 03/13/23 08:24 Dose: 40 mg Documented By: COLEEN Cefepime HCl 2 gm/ Sodium (Chloride) 50 mls @ 100 mls/hr IV Q8H [facility] Last Infusion: 03/13/23 09:46 Dose: Infused Documented By: COLEEN Vancomycin HCl 1,000 mg/ (Sodium Chloride) 270 mls @ 270 mls/hr IV Q12H [facility] Last Infusion: 03/13/23 08:59 Dose: Infused Documented By: COLEEN Lisinopril (Lisinopril 20 Mg Tablet) 20 mg PO DAILY [facility]; Protocol Last Admin: 03/13/23 08:24 Dose: 20 mg Documented By: COLEEN Loratadine (Loratadine 10 Mg Tablet) 10 mg PO DAILY PRN PRN Reason: Allergy Symptoms Lorazepam (Lorazepam 0.5 Mg Tablet) 0.5 mg PO DAILY PRN PRN Reason: Anxiety Metoprolol Tartrate (Metoprolol Tartrate 25 Mg Tablet) 25 mg PO BID [facility]; Protocol Last Admin: 03/13/23 08:24 Dose: 25 mg Documented By: COLEEN Morphine Sulfate (Morphine Sulfate 4 Mg/Ml Cartridge) 4 mg IVPUSH Q4H PRN; Protocol PRN Reason: Pain, Severe (Pain Scale 7-10) Last Admin: 03/13/23 00:17 Dose: 4 mg Documented By: IRAJ Ondansetron HCl (Ondansetron Hcl 4 Mg/2 Ml Vial) 4 mg IVPUSH Q8H PRN PRN Reason: Nausea and Vomiting Ondansetron HCl (Ondansetron Hcl 4 Mg/2 Ml Vial) 4 mg IVPUSH ONCE PRN PRN Reason: Nausea and Vomiting Pharmacy Consult (Consult Rx Vancomycin Dosing) 1 each MISCELLANE DAILY PRN PRN Reason: Consult order Sodium Chloride (0.9 % Sodium Chloride Flush 3 Ml Syringe) 3 ml IVFLUSH QSHIFT [facility] Last Admin: 03/13/23 07:13 Dose: Not Given Documented By: COLEEN Non-Admin Reason: IV Running Sodium Chloride (0.9 % Sodium Chloride Flush 3 Ml Syringe) 3 ml IVFLUSH QSHIFT [facility] Last Admin: 03/13/23 07:12 Dose: Not Given Documented By: COLEEN Non-Admin Reason: Duplicate Order Trazodone HCl (Trazodone Hcl 25 Mg Halftab) 25 mg PO BEDTIME [facility] Last Admin: 03/12/23 20:30 Dose: 25 mg Documented By: LOU Labs 03/13/23 05:37 03/13/23 05:37 Labs: Laboratory Results - last 24 hr 03/12/23 03/13/23 16:02 05:37 MCV 88.5 MCH 27.8 MCHC 31.4 RDW 15.2 Plt Count 413 H MPV 8.9 L Immature Gran % (Auto) 0.8 H Neut % (Auto) 72.0 Lymph % (Auto) 18.1 L [place] % (Auto) 8.6 Eos % (Auto) 0.2 Baso % (Auto) 0.3 Lymph # (Auto) 2.5 [place] # (Auto) 1.2 Eos # (Auto) 0.0 Baso # (Auto) 0.0 Abs Immat Gran (auto) 0.11 H Absolute Neuts (auto) 9.9 H Absolute Nucleated RBC 0.000 Nucleated RBC % (auto) 0.0 Anion Gap 12 Estim Creat Clear Calc 75.9 Estimated GFR > 60 Fasting Glucose 145 H Calcium 8.4 Total Bilirubin 0.5 AST 70 H ALT 68 H Alkaline Phosphatase 77 Total Protein 6.4 L Albumin 2.5 L Random Vancomycin 13.5 L Microbiology Microbiology Results: Microbiology 03/10/23 15:40 Blood Culture - Preliminary Blood - Venous No growth after 48 hours. 03/10/23 15:40 Blood Culture - Preliminary Blood - Venous No growth after 48 hours. Assessment and Plan (1) Closed fracture of left hip: Status: Acute (2) Osteomyelitis: Status: Acute (3) Hypertension: Status: Acute Plan Pt is a 73-year-old male with a PMH significant for?CAD s/p triple bypass in 2019, hx of left leg osteomyelitis, vertebrobasilar artery syndrome, cerebellar ataxia, HTN, HLD, PVD, and MDD who presents to the ED for evaluation of left hip pain after multiple falls at home during this past week. Pt will be admitted to the hospital for treatment further evaluation of left hip fracture and likely osteomyelitis of left lower leg. 1.Closed fracture of left hip -postop day 1 -good pain control/PT eval Lovenox for DVT prophylaxis -hematocrit drop but above transfusion threshold follow CBC 2.Chronic left lower leg wound concerning for osteomyelitis -continue IV vancomycin/cefepime day 3 -dressings as per surgery, blood cultures x2 negative -elevated ESR and CRP will discuss with ID regarding duration of antibiotic and question further imaging studies to r/o osteo 3.CAD/HLD -aspirin, Plavix on hold will discuss with Ortho if okay to resume -Continue statin 4.HTN -soft BP this morning continue home medication and follow BP Carlos PEREZ 5. History of alcohol use -no withdrawal symptoms continue [place] DNR/DNI DVT prophylaxis on Lovenox Patient will require ongoing hospitalization for IV antibiotics to treat likely osteomyelitis and for postoperative management of left hip Quality Stroke Does the patient have a stroke diagnosis?: No VTE Prior VTE?: No VTE Risk Level:: Medical - moderate - high VTE Device Contraindication: N/A - Device Ordered VTE Drug Contraindication: Treatment Not Indicated
--- NOTE | 2023-03-13 14:18 | HO.POSTANES ---
Post Anesthesia Evaluation Post Anesthesia Evaluation Date of Service: 03/13/23 Vital Signs: Vital Signs Temp Pulse Resp BP Pulse Ox O2 Del Method O2 Flow Rate 03/13/23 11:45 98.4 F 75 16 100/60 97 Room Air 03/13/23 10:46 99 Room Air 03/13/23 07:26 98.0 F 82 16 127/58 L 100 Nasal Cannula 2 03/13/23 02:58 98.6 F 75 17 154/69 H 96 Room Air Anesthesia: General Mental Status: Awake Pain Control: Satisfactory Nausea/Vomiting: None Hydration: Adequate Anesthesia-Related Issues: No Anes. Related Issues
[2023-03-13 15:30] VITALS: BP 148/72; PULSE 91; RESP 20; TEMP 36.8; O2SAT 100
--- NOTE | 2023-03-13 16:07 | W.PM.IDCN ---
History of Present Illness Data of Consult Service Date: 03/13/23 Requesting physician: Marko Aargon Primary Care Provider: Dwight Nunes MD HPI Reason for consult: chronic left leg ulcer,?OM He presents to ER on 03/10 after being found on floor by daughter. I had seen patient 09/21 in office ,left leg ?early OM and has venous stasis left leg and sees Dr Lisandra Silverman. He has fallen several times in last several days and sustained closed fracture left hip. He has no fever or chills. Review of Systems Review of Systems: Yes all other systems are reviewed and are negative [facility] Past Medical History Medical History MDD (major depressive disorder) PVD (peripheral vascular disease) HLD (hyperlipidemia) CAD (coronary artery disease) Vertebrobasilar artery syndrome Osteomyelitis Hypertension Family History Family history: reviewed and not pertinent Social History Social History Household Members: None Housing: House Do you presently have visiting nurse or other home services: Yes Unable to assess alcohol history related to: Refusing to respond Patient Tobacco Use Status: Former Tobacco user Smoked in Last 30 Days: No Use of substances other than those prescribed or required for medical reasons: No Currently Displaying Signs/Symptoms of Drug Intoxication Withdrawal: No Any prior treatment program specific to substance use: No Have you been hit, kicked, punched, or otherwise hurt by someone within the past year? If so, by whom?: No Do you feel safe in your current relationship?: Yes Is there a partner from a previous relationship who is making you feel unsafe now?: No Are you made to feel afraid or neglected: No Advance Directives: Yes Advance Directives on File: Yes Advance Directives Date on File: 03/10/23 Do you have thoughts of harming others: None Do you have a plan to hurt others: No Plan Recently lost weight without trying: No Eating poorly because of decreased appetite: Yes Nutrition Risks: No Nutritional Risk service: No Meds Allergies Allergy/AdvReac Type Severity Reaction Status Date / Time No Known Allergies Allergy Mild N/A Verified 10/31/22 14:39 Active Medications: Current Medications Acetaminophen (Acetaminophen 325 Mg Tablet) 650 mg PO Q6H PRN PRN Reason: Pain, Mild (Pain Scale 1-3) Last Admin: 03/13/23 08:24 Dose: 650 mg Atorvastatin Calcium (Atorvastatin Calcium 80 Mg Tablet) 80 mg PO DAILY [facility] Last Admin: 03/13/23 08:24 Dose: 80 mg Bupropion HCl (Bupropion Hcl Xl 300 Mg Tab.Er.24h) 300 mg PO DAILY [facility] Last Admin: 03/13/23 08:24 Dose: 300 mg Collagenase (Collagenase Clostridium Hist. 30 Gm Tube) 1 appl TOPICAL BID [facility]; Protocol Last Admin: 03/13/23 08:30 Dose: 1 appl Docusate Sodium (Docusate Sodium 100 Mg Capsule) 100 mg PO DAILY PRN PRN Reason: Constipation Enoxaparin Sodium (Enoxaparin Sodium 40 Mg/0.4 Ml Syringe) 40 mg SUBCUT Q24H [facility] Last Admin: 03/13/23 10:16 Dose: 40 mg Fentanyl (Fentanyl Citrate/Pf 100 Mcg/2 Ml Vial) 25 mcg IVPUSH Q5M PRN; Protocol PRN Reason: Pain, Moderate(Pain Scale 4-6) Furosemide (Furosemide 40 Mg Tablet) 40 mg PO DAILY [facility]; Protocol Last Admin: 03/13/23 08:24 Dose: 40 mg Cefepime HCl 2 gm/ Sodium (Chloride) 50 mls @ 100 mls/hr IV Q8H [facility] Last Infusion: 03/13/23 09:46 Dose: Infused Vancomycin HCl 1,000 mg/ (Sodium Chloride) 270 mls @ 270 mls/hr IV Q12H [facility] Last Infusion: 03/13/23 08:59 Dose: Infused Lisinopril (Lisinopril 20 Mg Tablet) 20 mg PO DAILY [facility]; Protocol Last Admin: 03/13/23 08:24 Dose: 20 mg Loratadine (Loratadine 10 Mg Tablet) 10 mg PO DAILY PRN PRN Reason: Allergy Symptoms Lorazepam (Lorazepam 0.5 Mg Tablet) 0.5 mg PO DAILY PRN PRN Reason: Anxiety Metoprolol Tartrate (Metoprolol Tartrate 25 Mg Tablet) 25 mg PO BID [facility]; Protocol Last Admin: 03/13/23 08:24 Dose: 25 mg Morphine Sulfate (Morphine Sulfate 4 Mg/Ml Cartridge) 4 mg IVPUSH Q4H PRN; Protocol PRN Reason: Pain, Severe (Pain Scale 7-10) Last Admin: 03/13/23 00:17 Dose: 4 mg Ondansetron HCl (Ondansetron Hcl 4 Mg/2 Ml Vial) 4 mg IVPUSH Q8H PRN PRN Reason: Nausea and Vomiting Ondansetron HCl (Ondansetron Hcl 4 Mg/2 Ml Vial) 4 mg IVPUSH ONCE PRN PRN Reason: Nausea and Vomiting Pharmacy Consult (Consult Rx Vancomycin Dosing) 1 each MISCELLANE DAILY PRN PRN Reason: Consult order Sodium Chloride (0.9 % Sodium Chloride Flush 3 Ml Syringe) 3 ml IVFLUSH [facility] Last Admin: 03/13/23 07:13 Dose: Not Given Sodium Chloride (0.9 % Sodium Chloride Flush 3 Ml Syringe) 3 ml IVFLUSH [facility] Last Admin: 03/13/23 15:08 Dose: Not Given Trazodone HCl (Trazodone Hcl 25 Mg Halftab) 25 mg PO BEDTIME [facility] Last Admin: 03/12/23 20:30 Dose: 25 mg Home Medications Medication Instructions Recorded Confirmed Last Taken Type aspirin 81 mg tablet,delayed 81 mg PO DAILY 09/21/22 03/10/23 Unknown History release atorvastatin 80 mg tablet 80 mg PO DAILY 09/21/22 03/10/23 Unknown History bupropion HCl 300 mg 24 hr tablet, 300 mg PO QAM 09/21/22 03/10/23 Unknown History extended release cetirizine 10 mg capsule (Zyrtec) 10 mg PO DAILY PRN Allergy Symptoms 09/21/22 03/10/23 Unknown History clopidogrel 75 mg tablet 75 mg PO DAILY 09/21/22 03/10/23 Unknown History lisinopril 20 mg tablet 20 mg PO DAILY 09/21/22 03/10/23 Unknown History trazodone 50 mg tablet 25 mg PO DAILY 09/21/22 03/10/23 Unknown History collagenase clostridium histo. 250 1 appl topical DAILY PRN Wound Care 03/10/23 03/10/23 Unknown History unit/gram topical ointment (Santyl) furosemide 40 mg tablet 40 mg PO QAM 03/10/23 03/10/23 Unknown History lorazepam 0.5 mg tablet 0.5 mg PO DAILY PRN Anxiety 03/10/23 03/10/23 Unknown History metoprolol tartrate 25 mg tablet 25 mg PO BID 03/10/23 03/10/23 Unknown History Physical Exam Vital Signs: Vital Signs: Last Vital Signs Temp 98.2 F 03/13/23 15:30 Pulse 91 03/13/23 15:30 Resp 20 03/13/23 15:30 BP 148/72 H 03/13/23 15:30 Pulse Ox 100 03/13/23 15:30 O2 Del Method Room Air 03/13/23 15:30 O2 Flow Rate 2 03/13/23 07:26 BMI result Body Mass Index 25.9 Const: General: cooperative HEENT: Head: Yes normal to inspection Face and sinus: Yes normal facial exam Mouth: Normal oral and palatal mucosa present Teeth and gingiva: dentition normal Eyes: General: appearance normal, both eyes and all related structures Pupils: Equal, round and reactive pupils present Resp: Effort & Inspection: normal respiratory effort Cardio: Rate: regular rate Rhythm: regular rhythm GI: Palpation (GI): Soft to palpation and nontender : General: Yes no CVA tenderness Back/Spine/Pelvis: Back: no CVA tenderness Skin: General skin exam: no rashes or lesions noted Neuro: General: moves all extremities Cranial nerves: Yes Equal, round and reactive pupils present Extrem: Other: chronic appearing packed wound LLE mid briseno Psych: Appearance: grossly normal Results Labs 03/13/23 05:37 03/13/23 05:37 Labs: Short CBC 03/13/23 Range/Units 05:37 WBC 13.7 H (4.8-10.8) X10*3/uL Hgb 8.7 L (14.0-18.0) g/dl Hct 27.7 L (42.0-52.0) % Plt Count 413 H (160-400) X10*3/uL BMP 03/13/23 05:37 Sodium 135 Potassium 4.3 Chloride 101 Carbon Dioxide 26 BUN 13 Creatinine 0.81 Calcium 8.4 Liver Function 03/13/23 Range/Units 05:37 Total Bilirubin 0.5 (0.0-1.0) mg/dL AST 70 H (5-37) U/L ALT 68 H (0-40) U/L Alkaline Phosphatase 77 (39-117) U/L Albumin 2.5 L (3.5-5.0) g/dL Microbiology Microbiology Results: Microbiology 03/10/23 15:40 Blood - Venous Blood Culture - Preliminary No growth after 48 hours. 03/10/23 15:40 Blood - Venous Blood Culture - Preliminary No growth after 48 hours. Assessment and Plan (1) Wound of left lower extremity: Qualifiers: Encounter type: initial encounter Qualified Code(s): S81.802A - Unspecified open wound, left lower leg, initial encounter Status: Acute He has venous stasis ulcer and has no cellulitis or signs externally of acute infection but is open. He has hip fracture due to falls likely. He has cerebellar ataxia. (2) Closed fracture of left hip: Status: Acute Plan Await any final cultures. Check MRI or CT scan LLE area of ulcer but likely is venous stasis but rule out osteomyelitis and treat six weeks IV if needed. Continue Cefepime and Vancomycin for now.
[2023-03-13 20:00] VITALS: BP 153/68; PULSE 94; RESP 18; TEMP 36.8; O2SAT 99
[2023-03-13] MEDS: traZODone HCL 25 MG HALFTAB PO (21:02)
[2023-03-13] MEDS: 0.9 % Sodium Chloride Flush 3 ML SYRINGE IVFLUSH (21:03)
[2023-03-13] MEDS: LORazepam 0.5 MG TABLET PO (21:05)
[2023-03-14] VITALS (8 sets, daily range): BP systolic 104–150; BP diastolic 50–72; PULSE 75–97; RESP 16–18; TEMP 36.1–37.7; O2SAT 95–99
[2023-03-14] MEDS: Melatonin 3 MG TABLET 6 MG PO (02:07)
[2023-03-14] MEDS: Morphine Sulfate 4 MG/ML CARTRIDGE IVPUSH ×2 (02:10→20:22)
[2023-03-14 05:16] LABS: Vancomycin Random 13.1 mcg/mL (15-20)
[2023-03-14 05:19] LABS: Alanine Aminotransferase 87 U/L (0-40); Albumin Level 2.5 g/dL (3.5-5.0); Alkaline Phosphatase 80 U/L (39-117); Anion Gap 12 (12-20); Aspartate Amino Transferase 90 U/L (5-37); Bilirubin Total 0.5 mg/dL (0.0-1.0); Blood Urea Nitrogen 13 mg/dL (9-16); Calcium 8.3 mg/dL (8.4-10.2); Carbon Dioxide 26 mmol/L (22-29); Chloride 102 mmol/L (96-108); Creatinine Clr Calc Pharmacy 93.1; Estimated Glomerular Filt Rate > 60; Glucose Fasting 112 mg/dL (60-99); Potassium 3.9 mmol/L (3.3-5.1); Sodium 136 mmol/L (135-145); Total Protein 6.4 g/dL (6.5-8.0)
[2023-03-14] MEDS: vancomycin HCL 1,000 MG in 0.9 % Sodium Chloride 250 ML 270 MG IV (05:39)
--- NOTE | 2023-03-14 06:21 | HE.PHANOTE ---
VANCO DOSE ADJUSTMENT BASED ON SCR AND TROUGH OF 13.1 DOSE INCREASED TO 1250 Q 12H. NEXT TROUGH 03/15@ 1600. PATIENT ALREADY RECEIVED 1GRAM DOSE ON 03/14 0600 WHEN TROUGH CAME BACK
--- NOTE | 2023-03-14 06:23 | PC.NURSE ---
@1210 pt in room 361 is asking for melatonin to help him sleep. Dr. Lugo was notified. Dr. Lugo ordered melatonin. Pt was given melatonin was able to sleep.
[2023-03-14] MEDS: cefEPime HCl 2 GM in 0.9 % Sodium Chloride 50 ML IV ×2 (07:34→15:42)
[2023-03-14] MEDS: 0.9 % Sodium Chloride Flush 3 ML SYRINGE IVFLUSH ×4 (07:37→20:12)
[2023-03-14] MEDS: Metoprolol Tartrate 25 MG TABLET PO ×2 (09:08→20:12)
[2023-03-14] MEDS: lisinopriL 20 MG TABLET PO (09:08)
[2023-03-14] MEDS: Enoxaparin Sodium 40 MG/0.4 ML SYRINGE SUBCUT (09:08)
[2023-03-14] MEDS: Atorvastatin Calcium 80 MG TABLET PO (09:08)
[2023-03-14] MEDS: Furosemide 40 MG TABLET PO (09:08)
[2023-03-14] MEDS: buPROPion HCl XL 300 MG TAB.ER.24H PO (09:08)
[2023-03-14] MEDS: Collagenase Clostridium Hist. 30 GM TUBE 1 APPL TOPICAL ×2 (10:59→20:12)
--- NOTE | 2023-03-14 12:03 | MHC.CM.PN ---
PT and OT evaluations recommend STR. The referral has been updated with clinical info. DP STR via BLS.
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
--- NOTE | 2023-03-14 14:25 | PM.PNORT ---
Subjective Subjective Date of Service: 03/14/23 Interval history: POD 2 s/p LT HIP OSMANY Patient is resting in bed comfortably No overnight events Pain is managed No additional complaints Physical Exam Vital Signs: Vital Signs: Last Vital Signs Temp 97.8 F 03/14/23 11:54 Pulse 82 03/14/23 11:54 Resp 18 03/14/23 11:54 BP 104/50 L 03/14/23 11:54 Pulse Ox 99 03/14/23 11:54 O2 Del Method Room Air 03/14/23 11:54 O2 Flow Rate 2 03/13/23 07:26 BMI result Body Mass Index 25.9 Const: General: cooperative, healthy appearing and no acute distress Resp: Effort & Inspection: normal respiratory effort and able to speak in complete sentences Cardio: Rate: regular rate Peripheral pulses: Peripheral pulses 2+ throughout GI: Palpation (GI): Soft to palpation Skin: Lesions: no lesions Rashes: no rashes Extrem: Other: left hip dressing is c/d/i. Able to dorsi/plantar flex. Calf is supple and nontender. Sensation intact. Pedal pulse intact. Procedures Date of Service Date of Service: 03/14/23 Progress Note: A&P Assessment and plan (1) Osteomyelitis: Status: Acute (2) Hypertension: Status: Acute (3) Closed fracture of left hip: Status: Acute Assessment and Plan: Continue pain mgmnt Begin Lovenox for dvt ppx begin PT for Lt hip osmany - WBAT, posterior precautions Dispo planning-Pending placement and med clearance Time Spent With Patient Time: Total time managing care of this patient today ____ minutes. Quality Stroke Does the patient have a stroke diagnosis?: No VTE Prior VTE?: No VTE Risk Level:: Medical - moderate - high VTE Device Contraindication: N/A - Device Ordered VTE Drug Contraindication: Treatment Not Indicated
--- NOTE | 2023-03-14 14:29 | HO.PM.IMPN ---
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 Review of Systems All other system reviewed and negative. Physical Exam Vital Signs: Vital Signs: Last Vital Signs Temp 97.8 F 03/14/23 11:54 Pulse 82 03/14/23 11:54 Resp 18 03/14/23 11:54 BP 104/50 L 03/14/23 11:54 Pulse Ox 99 03/14/23 11:54 O2 Del Method Room Air 03/14/23 11:54 O2 Flow Rate 2 03/13/23 07:26 BMI result Body Mass Index 25.9 Const: Other: General awake alert x3, in no acute distress. Neck supple no JVD. CVS regular rate rhythm, Respiratory lungs clear to auscultation, no respiratory distress, no wheeze, no rhonchi. Gastrointestinal abdomen soft, non tender, bowel sounds audible, no guarding , no rigidity. Extremities no edema. Left hip dressing in place Neuro nonfocal , speech clear. Skin left leg chronic ulcerated wound see picture on admission note Objective Data Active Medications Acetaminophen (Acetaminophen 325 Mg Tablet) 650 mg PO Q6H PRN PRN Reason: Pain, Mild (Pain Scale 1-3) Last Admin: 03/13/23 08:24 Dose: 650 mg Documented By: COLEEN Atorvastatin Calcium (Atorvastatin Calcium 80 Mg Tablet) 80 mg PO DAILY [facility] Last Admin: 03/14/23 09:08 Dose: 80 mg Documented By: COLEEN Bupropion HCl (Bupropion Hcl Xl 300 Mg Tab.Er.24h) 300 mg PO DAILY [facility] Last Admin: 03/14/23 09:08 Dose: 300 mg Documented By: COLEEN Collagenase (Collagenase Clostridium Hist. 30 Gm Tube) 1 appl TOPICAL BID [facility]; Protocol Last Admin: 03/14/23 10:59 Dose: 1 appl Documented By: COLEEN Docusate Sodium (Docusate Sodium 100 Mg Capsule) 100 mg PO DAILY PRN PRN Reason: Constipation Enoxaparin Sodium (Enoxaparin Sodium 40 Mg/0.4 Ml Syringe) 40 mg SUBCUT Q24H [facility] Last Admin: 03/14/23 09:08 Dose: 40 mg Documented By: COLEEN Fentanyl (Fentanyl Citrate/Pf 100 Mcg/2 Ml Vial) 25 mcg IVPUSH Q5M PRN; Protocol PRN Reason: Pain, Moderate(Pain Scale 4-6) Furosemide (Furosemide 40 Mg Tablet) 40 mg PO DAILY [facility]; Protocol Last Admin: 03/14/23 09:08 Dose: 40 mg Documented By: COLEEN Cefepime HCl 2 gm/ Sodium (Chloride) 50 mls @ 100 mls/hr IV Q8H [facility] Last Infusion: 03/14/23 08:16 Dose: Infused Documented By: COLEEN Vancomycin HCl 1,250 mg/ (Sodium Chloride) 250 mls @ 166.667 mls/hr IV Q12H [facility] Lisinopril (Lisinopril 20 Mg Tablet) 20 mg PO DAILY [facility]; Protocol Last Admin: 03/14/23 09:08 Dose: 20 mg Documented By: COLEEN Loratadine (Loratadine 10 Mg Tablet) 10 mg PO DAILY PRN PRN Reason: Allergy Symptoms Lorazepam (Lorazepam 0.5 Mg Tablet) 0.5 mg PO DAILY PRN PRN Reason: Anxiety Melatonin (Melatonin 3 Mg Tablet) 6 mg PO BEDTIME PRN PRN Reason: Insomnia Last Admin: 03/14/23 02:07 Dose: 6 mg Documented By: LOU Metoprolol Tartrate (Metoprolol Tartrate 25 Mg Tablet) 25 mg PO BID [facility]; Protocol Last Admin: 03/14/23 09:08 Dose: 25 mg Documented By: COLEEN Morphine Sulfate (Morphine Sulfate 4 Mg/Ml Cartridge) 4 mg IVPUSH Q4H PRN; Protocol PRN Reason: Pain, Severe (Pain Scale 7-10) Last Admin: 03/14/23 02:10 Dose: 4 mg Documented By: LOU Ondansetron HCl (Ondansetron Hcl 4 Mg/2 Ml Vial) 4 mg IVPUSH Q8H PRN PRN Reason: Nausea and Vomiting Ondansetron HCl (Ondansetron Hcl 4 Mg/2 Ml Vial) 4 mg IVPUSH ONCE PRN PRN Reason: Nausea and Vomiting Pharmacy Consult (Consult Rx Vancomycin Dosing) 1 each MISCELLANE DAILY PRN PRN Reason: Consult order Sodium Chloride (0.9 % Sodium Chloride Flush 3 Ml Syringe) 3 ml IVFLUSH QSHIFT [facility] Last Admin: 03/14/23 07:37 Dose: 3 ml Documented By: COLEEN Sodium Chloride (0.9 % Sodium Chloride Flush 3 Ml Syringe) 3 ml IVFLUSH QSHIFT [facility] Last Admin: 03/14/23 07:19 Dose: Not Given Documented By: COLEEN Non-Admin Reason: Duplicate Order Trazodone HCl (Trazodone Hcl 25 Mg Halftab) 25 mg PO BEDTIME [facility] Last Admin: 03/13/23 21:02 Dose: 25 mg Documented By: LOU Labs 03/13/23 05:37 03/14/23 04:25 Labs: Laboratory Results - last 24 hr 03/14/23 04:25 Hold Purple Top SEE NOTE Anion Gap 12 Estim Creat Clear Calc 93.1 Estimated GFR > 60 Fasting Glucose 112 H Calcium 8.3 L Total Bilirubin 0.5 AST 90 H ALT 87 H Alkaline Phosphatase 80 Total Protein 6.4 L Albumin 2.5 L Random Vancomycin 13.1 L Assessment and Plan (1) Closed fracture of left hip: Status: Acute (2) Osteomyelitis: Status: Acute (3) Hypertension: Status: Acute Plan Pt is a 73-year-old male with a PMH significant for?CAD s/p triple bypass in 2019, hx of left leg osteomyelitis, vertebrobasilar artery syndrome, cerebellar ataxia, HTN, HLD, PVD, and MDD who presents to the ED for evaluation of left hip pain after multiple falls at home during this past week. Pt will be admitted to the hospital for treatment further evaluation of left hip fracture and likely osteomyelitis of left lower leg. 1.Closed fracture of left hip -postop day 2 -good pain control/PT / Lovenox for DVT prophylaxis -hematocrit dropped but above transfusion threshold follow CBC 2.Chronic left lower leg wound concerning for osteomyelitis -continue IV vancomycin/cefepime day 4 -dressings as per surgery, blood cultures x2 negative -elevated ESR and CRP , spoke with ID she recommend MRI to rule out osteomyelitis meanwhile she recommend to continue current antibiotics MRI ordered, due to concern for metal in orbit, patient underwent x-ray of the orbits that shows no metal. 3.CAD/HLD -Continue statin, will resume aspirin 4.HTN -fluctuating blood pressures continue current home medications metoprolol 25 b.i.d., lisinopril and Lasix 40 5. History of alcohol use -no withdrawal symptoms ,Dc CIWA DNR/DNI DVT prophylaxis on Lovenox Patient will require ongoing hospitalization for IV antibiotics to treat likely osteomyelitis need further imaging studies to rule out osteomyelitis and for postoperative management of left hip Quality Stroke Does the patient have a stroke diagnosis?: No VTE Prior VTE?: No VTE Risk Level:: Medical - moderate - high VTE Device Contraindication: N/A - Device Ordered VTE Drug Contraindication: Treatment Not Indicated
[2023-03-14] MEDS: Acetaminophen 325 MG TABLET 650 MG PO (16:36)
[2023-03-14] MEDS: vancomycin HCL 1,250 MG in 0.9 % Sodium Chloride 250 ML 166.67 MG IV (18:14)
[2023-03-14] MEDS: traZODone HCL 25 MG HALFTAB PO (20:12)
[2023-03-14] MEDS: ondansetron HCL 4 MG/2 ML VIAL IVPUSH (21:39)
[2023-03-14] MEDS: LORazepam 0.5 MG TABLET PO (22:22)
[2023-03-15] VITALS (8 sets, daily range): BP systolic 88–170; BP diastolic 40–75; PULSE 69–89; RESP 16–18; TEMP 36.2–37; O2SAT 92–99
[2023-03-15] MEDS: cefEPime HCl 2 GM in 0.9 % Sodium Chloride 50 ML IV ×4 (00:26→23:22)
[2023-03-15] MEDS: 0.9 % Sodium Chloride Flush 3 ML SYRINGE IVFLUSH ×5 (00:27→20:59)
[2023-03-15] MEDS: vancomycin HCL 1,250 MG in 0.9 % Sodium Chloride 250 ML 166.67 MG IV (05:56)
[2023-03-15] MEDS: Morphine Sulfate 4 MG/ML CARTRIDGE IVPUSH (06:21)
[2023-03-15 06:56] LABS: Creatinine Clr Calc Pharmacy 87.8; Estimated Glomerular Filt Rate > 60
--- NOTE | 2023-03-15 07:31 | PM.PNORT ---
Subjective Subjective Date of Service: 03/15/23 Interval history: POD3 s/p Patient is resting in bed comfortably No overnight events Allowed to sleep Physical Exam Vital Signs: Vital Signs: Last Vital Signs Temp 97.1 F 03/15/23 03:58 Pulse 89 03/15/23 03:58 Resp 18 03/15/23 03:58 BP 170/75 H 03/15/23 03:58 Pulse Ox 98 03/15/23 03:58 O2 Del Method Room Air 03/15/23 03:58 O2 Flow Rate 2 03/13/23 07:26 BMI result Body Mass Index 25.9 Const: General: cooperative, healthy appearing and no acute distress Resp: Effort & Inspection: normal respiratory effort and able to speak in complete sentences Cardio: Rate: regular rate Peripheral pulses: Peripheral pulses 2+ throughout GI: Palpation (GI): Soft to palpation Skin: Lesions: no lesions Rashes: no rashes Extrem: Other: left hip dressing is c/d/i. Able to dorsi/plantar flex. Calf is supple and nontender. Sensation intact. Pedal pulse intact. Procedures Date of Service Date of Service: 03/15/23 Progress Note: A&P Assessment and plan (1) Osteomyelitis: Status: Acute (2) Hypertension: Status: Acute (3) Closed fracture of left hip: Status: Acute Assessment and Plan: Continue pain mgmnt Continue Lovenox for dvt ppx Continue PT for Lt hip enrike - WBAT, posterior precautions Dispo planning-Pending placement and med clearance Time Spent With Patient Time: Total time managing care of this patient today ____ minutes. Quality Stroke Does the patient have a stroke diagnosis?: No VTE Prior VTE?: No VTE Risk Level:: Medical - moderate - high VTE Device Contraindication: N/A - Device Ordered VTE Drug Contraindication: Treatment Not Indicated
[2023-03-15] MEDS: buPROPion HCl XL 300 MG TAB.ER.24H PO (08:15)
[2023-03-15] MEDS: Metoprolol Tartrate 25 MG TABLET PO ×2 (08:15→20:59)
[2023-03-15] MEDS: lisinopriL 20 MG TABLET PO (08:15)
[2023-03-15] MEDS: Aspirin Enteric Coated 81 MG TABLET.DR PO (08:16)
[2023-03-15] MEDS: Furosemide 40 MG TABLET PO (08:16)
[2023-03-15] MEDS: Atorvastatin Calcium 80 MG TABLET PO (08:16)
[2023-03-15] MEDS: Enoxaparin Sodium 40 MG/0.4 ML SYRINGE SUBCUT (09:19)
[2023-03-15] MEDS: Collagenase Clostridium Hist. 30 GM TUBE 1 APPL TOPICAL ×2 (09:19→21:10)
[2023-03-15] MEDS: ondansetron HCL 4 MG/2 ML VIAL IVPUSH (10:11)
[2023-03-15] MEDS: Acetaminophen 325 MG TABLET 650 MG PO (10:11)
[2023-03-15] MEDS: 0.9 % Sodium Chloride 1,000 ML 100 ML IVCONT (10:43)
--- NOTE | 2023-03-15 11:50 | P.PNIM_ITS ---
Subjective Subjective Date of Service: 03/15/23 Interval History: Complaining of left hip pain, Tylenol and morphine not holding pain, later in the morning noted to have drop in blood pressure to 88/4o patient felt lightheaded denies fever, no chills, no cough or sputum production, no urinary symptoms, is scheduled for MRI study, tolerated diet this morning with no nausea, no vomiting No diarrhea. Review of Systems All other system reviewed and negative. Physical Exam 2 Vital Signs: Vital Signs: Last Vital Signs Temp 97.1 F 03/15/23 10:21 Pulse 74 03/15/23 11:34 Resp 17 03/15/23 07:32 BP 88/40 L 03/15/23 11:34 Pulse Ox 95 03/15/23 10:21 O2 Del Method Room Air 03/15/23 10:21 O2 Flow Rate 2 03/13/23 07:26 BMI result Body Mass Index 25.9 Const: Other: General awake alert x3, in no acute distress. Neck supple no JVD. CVS regular rate rhythm, Respiratory lungs clear to auscultation, no respiratory distress, no wheeze, no rhonchi. Gastrointestinal abdomen soft, non tender, bowel sounds audible, no guarding , no rigidity. Extremities no edema. Left hip dressing in place Neuro nonfocal , speech clear. Skin left leg chronic ulcerated wound see picture on admission note Objective Data Active Medications Acetaminophen (Acetaminophen 325 Mg Tablet) 650 mg PO Q6H PRN PRN Reason: Pain, Mild (Pain Scale 1-3) Last Admin: 03/15/23 10:11 Dose: 650 mg Documented By: MARILYN Aspirin (Aspirin Enteric Coated 81 Mg Tablet.) 81 mg PO DAILY [facility] Last Admin: 03/15/23 08:16 Dose: 81 mg Documented By: MARILYN Atorvastatin Calcium (Atorvastatin Calcium 80 Mg Tablet) 80 mg PO DAILY [facility] Last Admin: 03/15/23 08:16 Dose: 80 mg Documented By: MARILYN Bupropion HCl (Bupropion Hcl Xl 300 Mg Tab.Er.24h) 300 mg PO DAILY [facility] Last Admin: 03/15/23 08:15 Dose: 300 mg Documented By: MARILYN Collagenase (Collagenase Clostridium Hist. 30 Gm Tube) 1 appl TOPICAL BID [facility]; Protocol Last Admin: 03/15/23 09:19 Dose: 1 appl Documented By: MARILYN Docusate Sodium (Docusate Sodium 100 Mg Capsule) 100 mg PO DAILY PRN PRN Reason: Constipation Enoxaparin Sodium (Enoxaparin Sodium 40 Mg/0.4 Ml Syringe) 40 mg SUBCUT Q24H [facility] Last Admin: 03/15/23 09:19 Dose: 40 mg Documented By: MARILYN Furosemide (Furosemide 40 Mg Tablet) 40 mg PO DAILY [facility]; Protocol Last Admin: 03/15/23 08:16 Dose: 40 mg Documented By: MARILYN Cefepime HCl 2 gm/ Sodium (Chloride) 50 mls @ 100 mls/hr IV Q8H [facility] Last Infusion: 03/15/23 08:47 Dose: Infused Documented By: MARILYN Vancomycin HCl 1,250 mg/ (Sodium Chloride) 250 mls @ 166.667 mls/hr IV Q12H [facility] Last Infusion: 03/15/23 07:38 Dose: Infused Documented By: MARILYN Sodium Chloride (Ns) 1,000 mls @ 150 mls/hr IVCONT .Q6H40M [facility] Stop: 03/15/23 17:33 Last Admin: 03/15/23 10:43 Dose: 100 mls/hr Documented By: MARILYN Lisinopril (Lisinopril 10 Mg Tablet) 10 mg PO DAILY [facility]; Protocol Loratadine (Loratadine 10 Mg Tablet) 10 mg PO DAILY PRN PRN Reason: Allergy Symptoms Lorazepam (Lorazepam 0.5 Mg Tablet) 0.5 mg PO DAILY PRN PRN Reason: Anxiety Last Admin: 03/14/23 22:22 Dose: 0.5 mg Documented By: ADRIEN Melatonin (Melatonin 3 Mg Tablet) 6 mg PO BEDTIME PRN PRN Reason: Insomnia Last Admin: 03/14/23 02:07 Dose: 6 mg Documented By: LOU Metoprolol Tartrate (Metoprolol Tartrate 25 Mg Tablet) 25 mg PO BID [facility]; Protocol Last Admin: 03/15/23 08:15 Dose: 25 mg Documented By: MARILYN Morphine Sulfate (Morphine Sulfate 4 Mg/Ml Cartridge) 4 mg IVPUSH Q4H PRN; Protocol PRN Reason: Pain, Severe (Pain Scale 7-10) Last Admin: 03/15/23 06:21 Dose: 4 mg Documented By: ADRINE Ondansetron HCl (Ondansetron Hcl 4 Mg/2 Ml Vial) 4 mg IVPUSH Q8H PRN PRN Reason: Nausea and Vomiting Last Admin: 03/15/23 10:11 Dose: 4 mg Documented By: MARILYN Ondansetron HCl (Ondansetron Hcl 4 Mg/2 Ml Vial) 4 mg IVPUSH ONCE PRN PRN Reason: Nausea and Vomiting Oxycodone HCl (Oxycodone Hcl Immed Release 5 Mg Tablet) 5 mg PO Q4H PRN PRN Reason: Pain, Moderate(Pain Scale 4-6) Pharmacy Consult (Consult Rx Vancomycin Dosing) 1 each MISCELLANE DAILY PRN PRN Reason: Consult order Sodium Chloride (0.9 % Sodium Chloride Flush 3 Ml Syringe) 3 ml IVFLUSH QSHIFT [facility] Last Admin: 03/15/23 08:16 Dose: 3 ml Documented By: MARILYN Sodium Chloride (0.9 % Sodium Chloride Flush 3 Ml Syringe) 3 ml IVFLUSH [facility] Last Admin: 03/15/23 08:16 Dose: Not Given Documented By: MARILYN Non-Admin Reason: Duplicate Order Trazodone HCl (Trazodone Hcl 25 Mg Halftab) 25 mg PO BEDTIME [facility] Last Admin: 03/14/23 20:12 Dose: 25 mg Documented By: ADRIEN Labs 03/13/23 05:37 03/15/23 06:00 Labs: Laboratory Results - last 24 hr 03/15/23 03/15/23 06:00 06:36 Hold Purple Top SEE NOTE Estim Creat Clear Calc 87.8 Estimated GFR > 60 Assessment and Plan (1) Closed fracture of left hip: Status: Acute (2) Osteomyelitis: Status: Acute (3) Hypertension: Status: Acute Plan Pt is a 73-year-old male with a PMH significant for?CAD s/p triple bypass in 2019, hx of left leg osteomyelitis, vertebrobasilar artery syndrome, cerebellar ataxia, HTN, HLD, PVD, and MDD who presents to the ED for evaluation of left hip pain after multiple falls at home during this past week. Pt will be admitted to the hospital for treatment further evaluation of left hip fracture and likely osteomyelitis of left lower leg. 1.Closed fracture of left hip -postop day 3 Will add oxycodone and continue Tylenol and as needed morphine for better pain control -cont.PT / Lovenox for DVT prophylaxis -hematocrit dropped but above transfusion threshold follow CBC 2.Chronic left lower leg wound concerning for osteomyelitis -continue IV vancomycin/cefepime day 5 -dressings as per surgery, blood cultures x2 negative -elevated ESR and CRP , spoke with ID she recommend MRI to rule out osteomyelitis meanwhile she recommend to continue current antibiotics MRI ordered, due to concern for metal in orbit, patient underwent x-ray of the orbits that shows no metal. MRI scheduled for today 3.CAD/HLD -Continue statin, will resume aspirin 4.HTN - noted to have Hypotension this morning no evidence of infection, no fevers no tachypnea, no tachycardia, no urinary or upper respiratory symptoms will check CBC give IV fluids close clinical follow-up reduced dose of lisinopril and hold Lasix continue metoprolol 25 b.i.d. 5. History of alcohol use -no withdrawal symptoms , CIWA discontinued. DNR/DNI DVT prophylaxis on Lovenox Patient will require ongoing hospitalization for IV antibiotics to treat likely osteomyelitis need further imaging studies to rule out osteomyelitis and for postoperative management of left hip Quality Stroke Does the patient have a stroke diagnosis?: No VTE Prior VTE?: No VTE Risk Level:: Medical - moderate - high VTE Device Contraindication: N/A - Device Ordered VTE Drug Contraindication: Treatment Not Indicated
--- NOTE | 2023-03-15 12:22 | PC.NURSE ---
Addendum entered by Lashanda Unger RN 03/15/23 14:49: BP recheck at approximately 13:15, 107/53, pt states hes feeling better. Original Note: MD Aragon made aware via tiger text at 10:21 pt reports is not feeling himself and also reports feeling nauseated. Vital signs 97.1, HR 71, O2 95%, BP 88/40. PRN Zofran given with mild effect. Lisinopril order decreased and NaCl ordered for 100ML/HR. BP recheck in one hour 88/44, increased fluid order to 150Ml/HR.
--- NOTE | 2023-03-15 12:23 | MHC.CM.PN ---
Addendum entered by Marie Alvarez 03/15/23 14:01: [facility] DECLINED TO OFFER A BED. Original Note: [facility]st choice, is following. MRI is pending. It is not known if Hyperbaric chamber TX or IV ABX will be needed. Needs will be known once MRI is completed. DP STR via BLS.
[2023-03-15] MEDS: gadobutroL 7.5 ML VIAL IVPUSH (12:58)
[2023-03-15] MEDS: oxyCODONE HCl Immed Release 5 MG TABLET PO ×2 (13:20→21:02)
[2023-03-15 17:23] LABS: Vancomycin Random 21.3 mcg/mL (15-20)
[2023-03-15 17:29] LABS: Hematocrit 28.4 % (42.0-52.0); Hemoglobin 8.8 g/dl (14.0-18.0); Mean Corpuscular Hemoglobin 27.8 pg (27.0-33.0); Mean Corpuscular Volume 89.9 fL (80.0-98.0); Mean Platelet Volume 9.1 fL (9.4-12.4); Platelet Count 512 X10*3/uL (160-400); Red Blood Count 3.16 X10*6/uL (4.60-5.80); Red Cell Distribution Width 15.5 % (11.0-16.0); White Blood Count 13.6 X10*3/uL (4.8-10.8)
--- NOTE | 2023-03-15 17:32 | HE.PHANOTE ---
RE: VANCO Patients level came back this evening at 21.3. Patients dose was just increased to 1250 mg Q12H. Jump was a little higher than expected, Rxinsight was predicting trough of 16. Will decrease dose x 2 doses. 1000 mg Q12H. PRedicted [id number]. Next draw tomorrow 03/16 @1600
[2023-03-15] MEDS: vancomycin HCL 1,000 MG in 0.9 % Sodium Chloride 250 ML 270 MG IV (18:14)
[2023-03-15] MEDS: traZODone HCL 25 MG HALFTAB PO (20:59)
[2023-03-16 00:09] VITALS: BP 113/56; PULSE 73
[2023-03-16] MEDS: Morphine Sulfate 4 MG/ML CARTRIDGE IVPUSH (00:11)
[2023-03-16 03:16] VITALS: BP 117/58; PULSE 76; RESP 16; TEMP 36; O2SAT 98
[2023-03-16] MEDS: vancomycin HCL 1,000 MG in 0.9 % Sodium Chloride 250 ML 270 MG IV (05:14)
[2023-03-16] MEDS: oxyCODONE HCl Immed Release 5 MG TABLET PO ×2 (05:23→12:16)
[2023-03-16 06:55] LABS: Creatinine Clr Calc Pharmacy 86.6; Estimated Glomerular Filt Rate > 60
[2023-03-16] MEDS: Atorvastatin Calcium 80 MG TABLET PO (07:50)
[2023-03-16] MEDS: Aspirin Enteric Coated 81 MG TABLET.DR PO (07:50)
[2023-03-16] MEDS: lisinopriL 10 MG TABLET PO (07:51)
[2023-03-16] MEDS: buPROPion HCl XL 300 MG TAB.ER.24H PO (07:51)
[2023-03-16] MEDS: cefEPime HCl 2 GM in 0.9 % Sodium Chloride 50 ML IV ×2 (07:51→15:51)
[2023-03-16] MEDS: Metoprolol Tartrate 25 MG TABLET PO (07:51)
[2023-03-16 08:00] VITALS: BP 134/66; PULSE 80; RESP 17; TEMP 36.8; O2SAT 98
--- NOTE | 2023-03-16 11:49 | MHC.CM.PN ---
Addendum entered by Kinga Martell 03/16/23 16:23: CORRECTION: PT WILL BE TRANSPORTED VIA [facility] ([facility] INSURANCE) Addendum entered by Kinga Martell 03/16/23 13:59: PICC IN PLACE DCS AND PICC REPORT SENT TO BLS TRANSPORT ARRANGED VIA [facility] FOR 1730 PT AWARE OF DCP AND TIME, STATES HE WILL CALL HIS NIECE TO BRING HIM CLOTHES AT THE SNF PT WILL DC TO [facility] STR TODAY AT 1730 VIA [facility] Original Note: CM MET WITH PT TO DISCUSS DC PLANS PT AWARE THERE ARE ONLY TWO BED OFFERS FOR STR AND THAT HE WILL NEED PLACEMENT PER HIS NIECE, THEY DO NOT WANT A [facility] PT MADE AWARE THE ONLY OTHER SNF OFFERING IS [facility] PT STATES, LONG I HAVE A PLACE TO GO [facility] HAS OBTAINED AUTH PT WILL DC TO STR TODAY PENDING PICC LINE PLACEMENT
--- NOTE | 2023-03-16 11:56 | HO.PICC ---
PICC Line Insertion NPICC Diagnosis: left lower extemity non healing wound Indication: senior living IVABT Pertinent Labs: reviewed Technique: Following informed consent including risks, benefits and alternatives and using sterile technique including cap and mask, sterile gown, glove and drape, the arm was prepped and draped in the usual sterile fashion of full barrier technique with CHG. Following completion of Jay Em Protocol the skin and soft tissues were anesthetized with 1% Lidocaine plain. Using ultrasound guidance, right basilic vein access was obtained. Over an 0.018 wire through peel-away sheath, a 4FR single lumen PASV PICC line was positioned. Catheter length is 40cm internal length, 0cm external length, for a total trimmed length of 40cm. The procedure was performed in Rm 272. Tip verification was performed by Akua Anderson with Annie 3CG. Tip located in SVC. Ultrasound was used to document vein patency and for needle entry. A formal ultrasound picture and cardiac rhythm strip was recorded. Vascular Spooling Machine Operator has released the line for use and it is currently dressed with a StatLock, Tegaderm, and CHG disc. Verification has been performed for blood return and line patency. Arm Circumference: 26cm Equipment: Qinging Weekly Flower Delivery PowerPICC SOLO Catheter Type: 4FR single lumen PASV Lot #: [id number]
[2023-03-16 12:00] VITALS: BP 137/64; PULSE 76; RESP 17; TEMP 36.6; O2SAT 99
[2023-03-16] MEDS: Collagenase Clostridium Hist. 30 GM TUBE 1 APPL TOPICAL (12:18)
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
[2023-03-16] MEDS: Enoxaparin Sodium 40 MG/0.4 ML SYRINGE SUBCUT (13:24)
[2023-03-16 16:00] VITALS: BP 109/55; PULSE 83; RESP 20; TEMP 36.2; O2SAT 97
[2023-03-16 16:54] LABS: Vancomycin Random 19.4 mcg/mL (15-20)
--- NOTE | 2023-03-16 17:06 | HE.PHANOTE ---
re: belgica Patients level came back this evening at 19.4. Will decrease dose to 750 mg Q12H to see if patients level will decrease slightly. Patient is showing a level that is about 4 above what rxinsight suggests. Right now rxinsight shows that this AUC will be 379 with a trough of 11.9. Based off of patients levels so far, its believed that the patient will be higher than predicted. next level after 2 doses to make sure level stays therapeutic. Also pushed back dosing by 2 hours to allow patient to clear more before next dose.
--- NOTE | 2023-03-22 11:13 | W.PM.OPN ---
Operative Note Operative Note Date of Service: 03/12/23 Narrative: Date of Service: 03/12/23 Pre-op diagnosis: left femoral neck fracture Post-op diagnosis: same Procedure: Left hip hemiarthroplasty Implants: Zeinab #5 127 deg with + 4 Surgeon: Eleazar Devlin MD Anesthesia: GETA Was an Rivet Hole Machine Operator used for this Procedure?: Yes Rivet Hole Machine Operator: Gita Momin Estimated blood loss (mL): 200 IV fluids (mL): 1,000 Pathology: other Condition: stable Disposition: PACU Procedure in detail: Patient was brought to the operative room placed in the lateral decubitus position. All bony prominences were well padded and the was prepped and draped in standard sterile fashion. IV antibiotics per weight were administered and a time-out was called to identify proper site proper procedure proper surgeon. Radiographs were available and confirmed. I began by making a curvilinear incision over the posterolateral aspect of the greater trochanter. Dissection was taken down to the tensor fascia which was incised in line with the incision and a Charnley retractor was placed. The hip was internally rotated and the external rotators were identified. All vessels in the area were cauterized and a full-thickness capsular/external rotator layer was developed in a hockey-stick fashion starting just proximal to the piriformis. This layer was tagged and the displaced femoral neck fracture was identified. Clean-up cuts was performed while protecxtion the posterolateral soft tissues and the head was removed and measured (50 mm) on the back table. I then copiously irrigated the acetabulum and removed all bony fragments. Once this was done I used a cookie cutter to lateralize and a Charnley awl to identify the canal and then sequentially broached up to a 127 deg #5. I then trialed with a standard head and a bipolar component matching the femoral head size. I was satisfied with the range of motion and stability and length. Therefore I removed all instrumentation and copiously irrigated. I then placed my final femoral implant and then retrialed. I was satisfied with the +08/31/49 implants. My final bipolar components were then placed. I closed the capsular layer with FiberWire. I performed a layered closure with clement on skin. The patient was placed in sterile dressing extubated brought to recovery room in stable condition there were no known complications.
== END 2023-03-16 17:51 | disposition skilled nursing facility (03) | DRG 522 ==
LOC: HO.ED 17:07 → HO.EDOVER 19:03 → HO.S3 19:16
PROVIDERS: Hospitalist; Orthopaedic Surgery; Admitting Provider Student in an Organized Health Care Education/Training Program; Emergency Provider Emergency Medicine; PCP Family Medicine; Visit Provider Hospitalist
PROC: 0SRS0JA Replacement of Left Hip Joint, Femoral Surface with Synthetic Substitute, Uncemented, Open Approach (ICD-10-PCS; CPT 27125; principal; 2023-03-12 09:00)
PROC: 02HV33Z Insertion of Infusion Device into Superior Vena Cava, Percutaneous Approach (ICD-10-PCS; principal; 2023-03-16 10:30)
DX: S72.012A Unspecified intracapsular fracture of left femur, initial encounter for closed fracture (principal); M86.9 Osteomyelitis, unspecified; L97.822 Non-pressure chronic ulcer of other part of left lower leg with fat layer exposed; V49.9XXA Car occupant (driver) (passenger) injured in unspecified traffic accident, initial encounter; I25.10 Atherosclerotic heart disease of native coronary artery without angina pectoris; Z66 Do not resuscitate; I10 Essential (primary) hypertension; I87.2 Venous insufficiency (chronic) (peripheral); E78.5 Hyperlipidemia, unspecified; G47.00 Insomnia, unspecified; Z87.891 Personal history of nicotine dependence; Z95.1 Presence of aortocoronary bypass graft; Z79.02 Long term (current) use of antithrombotics/antiplatelets; Z79.899 Other long term (current) drug therapy
CPT/HCPCS: 36415; 36573; 70450; 71045; 72125; 73502; 73552; 73590; 73720; 80048; 80053; 80076; 80202; 82550; 82565; 83605; 83690; 84484; 85025; 85027; 85610; 85652; 86140; 87040; 88304; 88305; 88311; 93005; 97110; 97162; 97166; 97530; 97535; 99285; A9585; C1751; C1776; J0131; J0690; J0692; J1650; J2250; J2270; J2371; J2405; J2795; J3010; J3370; J3371

== ENCOUNTER → 2023-03-10 18:49 | Outpatient (BNV) | payer MEDICARE, SELFPAY | PROVIDERS: Admitting Provider Student in an Organized Health Care Education/Training Program; Emergency Provider Emergency Medicine; PCP Family Medicine; Visit Provider Student in an Organized Health Care Education/Training Program | DX: S72.002A Fracture of unspecified part of neck of left femur, initial encounter for closed fracture (principal); M86.9 Osteomyelitis, unspecified; I10 Essential (primary) hypertension | CPT/HCPCS: 99223; 99233; 99239 ==

== ENCOUNTER → 2023-03-10 18:49 | Outpatient (BNV) | payer MEDICARE, SELFPAY | PROVIDERS: Admitting Provider Student in an Organized Health Care Education/Training Program; Emergency Provider Emergency Medicine; PCP Family Medicine; Visit Provider Surgery | DX: S81.802A Unspecified open wound, left lower leg, initial encounter (principal) | CPT/HCPCS: 99222 ==

== ENCOUNTER → 2023-03-10 18:49 | Outpatient (BNV) | payer MEDICARE, SELFPAY | PROVIDERS: Admitting Provider Student in an Organized Health Care Education/Training Program; Emergency Provider Emergency Medicine; PCP Family Medicine; Visit Provider Physician Assistant | DX: S72.002A Fracture of unspecified part of neck of left femur, initial encounter for closed fracture (principal) | CPT/HCPCS: 27236; 99024; 99231 ==

== ENCOUNTER → 2023-03-10 18:49 | Outpatient (BNV) | payer MEDICARE, SELFPAY | PROVIDERS: Admitting Provider Student in an Organized Health Care Education/Training Program; Emergency Provider Emergency Medicine; PCP Family Medicine; Visit Provider Internal Medicine | DX: S81.802A Unspecified open wound, left lower leg, initial encounter (principal); S72.002A Fracture of unspecified part of neck of left femur, initial encounter for closed fracture | CPT/HCPCS: 99222 ==

== ENCOUNTER 2023-03-18 15:52 | Emergency (ER) | payer MEDICARE, SELFPAY ==
--- NOTE | ~2023-03-18 | CT_ITS ---
EXAMINATION: CT HEAD WITHOUT CONTRAST CT CERVICAL SPINE WITHOUT CONTRAST CLINICAL INFORMATION: Unwitnessed fall. Pain. COMPARISON: 03/10/2023. TECHNIQUE: Contiguous axial imaging was performed through the head and cervical spine without intravenous administration of contrast. This CT examination was performed using dose optimization techniques as appropriate, variously including the following: *Automated exposure control *Adjustment of mA and/or kV according to patient size (this includes techniques or standardized protocols for targeted exams where dose is matched to indication/reason for exam; i.e. extremities or head) *Use of iterative reconstruction technique DLP: 1690 mGy-cm FINDINGS: Motion slightly limits evaluation. There is cerebral volume loss with prominence of the lateral, and third ventricles. The cortical sulci are widened appropriately. The there is mild bilateral periventricular and central white matter diminished attenuation. There is no acute territorial defect, hemorrhage or midline shift. The extra-axial spaces are unremarkable. Calvarium: Intact. Maxilla facial sinuses and mastoids: There are a few ethmoid sinus opacities. The remaining visualized maxillofacial sinuses and mastoids appear to be clear despite motion. Cervical spine: Motion limits evaluation of the cervical spine as well. There is minimal anterolisthesis C2 over C3 and C3 over C4 as well as C7 over T1. There is straightening of the expected cervical spine curvature. There is moderate to severe C4-C5 to C6-C7 disc degenerative change and mild disc degenerative changes throughout the remaining cervical spine with loss of disc space, endplate change and posterior osteophytes associated with diffuse facet osteoarthritic hypertrophic with multilevel [id number] spinal canal and neuroforaminal narrowing. There is no evidence for acute fracture. The soft tissues are unremarkable. The visualized upper lung katz are clear. CT/CT cervical spine wo IV con IMPRESSION: Motion degraded images limits evaluation. There is no acute intracranial abnormality. Cervical disc degenerative change with straightening of the cervical spine curvature and grade 1 anterolisthesis C2 over C3, C3 over C4 and C7 over T1 likely chronic and similar to previous. There is no evidence for fracture.
--- NOTE | ~2023-03-18 | CT_ITS ---
EXAMINATION: CT HEAD WITHOUT CONTRAST CT CERVICAL SPINE WITHOUT CONTRAST CLINICAL INFORMATION: Unwitnessed fall. Pain. COMPARISON: 03/10/2023. TECHNIQUE: Contiguous axial imaging was performed through the head and cervical spine without intravenous administration of contrast. This CT examination was performed using dose optimization techniques as appropriate, variously including the following: *Automated exposure control *Adjustment of mA and/or kV according to patient size (this includes techniques or standardized protocols for targeted exams where dose is matched to indication/reason for exam; i.e. extremities or head) *Use of iterative reconstruction technique DLP: 1690 mGy-cm FINDINGS: Motion slightly limits evaluation. There is cerebral volume loss with prominence of the lateral, and third ventricles. The cortical sulci are widened appropriately. The there is mild bilateral periventricular and central white matter diminished attenuation. There is no acute territorial defect, hemorrhage or midline shift. The extra-axial spaces are unremarkable. Calvarium: Intact. Maxilla facial sinuses and mastoids: There are a few ethmoid sinus opacities. The remaining visualized maxillofacial sinuses and mastoids appear to be clear despite motion. Cervical spine: Motion limits evaluation of the cervical spine as well. There is minimal anterolisthesis C2 over C3 and C3 over C4 as well as C7 over T1. There is straightening of the expected cervical spine curvature. There is moderate to severe C4-C5 to C6-C7 disc degenerative change and mild disc degenerative changes throughout the remaining cervical spine with loss of disc space, endplate change and posterior osteophytes associated with diffuse facet osteoarthritic hypertrophic with multilevel mwox-nz-woymmxgn spinal canal and neuroforaminal narrowing. There is no evidence for acute fracture. The soft tissues are unremarkable. The visualized upper lung katz are clear. CT/CT head/brain wo IV con IMPRESSION: Motion degraded images limits evaluation. There is no acute intracranial abnormality. Cervical disc degenerative change with straightening of the cervical spine curvature and grade 1 anterolisthesis C2 over C3, C3 over C4 and C7 over T1 likely chronic and similar to previous. There is no evidence for fracture.
--- NOTE | ~2023-03-18 | XR_ITS ---
EXAMINATION: XR PORTABLE CHEST CLINICAL INFORMATION: Cough COMPARISON: 03/10/2023 TECHNIQUE: AP portable upright view of the chest FINDINGS: Sternal wires and EKG leads overlie the chest. A right PICC line tip terminates near the cavoatrial junction. Surgical clips are present in the left suprahilar region. Calcific atherosclerosis is noted in the thoracic aorta. Cardiac silhouette is within normal limits. Lungs are clear. No consolidation, pneumothorax, or pleural effusion. Bones are osteopenic. Osteoarthritis is present in the acromioclavicular and glenohumeral joints. XR/XR chest 1V IMPRESSION: No acute cardiopulmonary findings.
[2023-03-18 16:03] VITALS: BP 145/67; PULSE 78; PULSE 81; RESP 16; TEMP 37.3; O2SAT 100; O2SAT 97; BMI 26.3
--- NOTE | 2023-03-18 16:28 | HO.SKINPHOTO ---
Location: Category: Stage: Length: Width: Depth: cm Location: Category: Stage: Length: Width: Depth: cm Location: Category: Stage: Length: Width: Depth: cm Location: Category: Stage: Length: Width: Depth: cm Location: Category: Stage: Length: Width: Depth: cm Location: Category: Stage: Length: Width: Depth: cm
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
--- NOTE | 2023-03-18 16:51 | PC.NURSE ---
pts daughter at bedside. reports pt made it to [facility] on evening and was supposed to be receiving Vanco 2x daily, pt did not receive any doses and did not have any dressing changes while at the facility.
[2023-03-18 17:49] LABS: MANUAL DIFF FLAG NO
[2023-03-18 17:51] LABS: Basophils Absolute Auto 0.1 X10*3/uL (0.0-0.2); Basophils Percent Auto 0.5 % (0-2); Eosinophils Absolute Auto 0.6 X10*3/uL (0.0-0.4); Hemoglobin 8.2 g/dl (14.0-18.0); Imm Gran Abs Auto 0.14 X10*3/uL (0.00-0.03); Imm Gran Pct Auto 1.2 % (0.0-0.4); Lymphocytes Absolute Auto 2.2 X10*3/uL (1.2-4.9); Mean Corpuscular HGB Conc 31.5 g/dl (31.0-36.0); Mean Corpuscular Hemoglobin 27.5 pg (27.0-33.0); Mean Corpuscular Volume 87.2 fL (80.0-98.0); Mean Platelet Volume 8.7 fL (9.4-12.4); Monocytes Absolute Auto 1.1 X10*3/uL (0.1-1.2); Monocytes Percent Auto 9.3 % (2-11); Neutrophils Absolute Auto 7.7 x10*3/uL (2.0-8.3); Platelet Count 502 X10*3/uL (160-400); Red Blood Count 2.98 X10*6/uL (4.60-5.80); Red Cell Distribution Width 15.8 % (11.0-16.0); White Blood Count 11.8 X10*3/uL (4.8-10.8)
[2023-03-18 17:59] LABS: INTERNATIONAL NORM RATIO 1.1 (0.9-1.1); Prothrombin Time 13.6 SEC (11.1-13.3)
[2023-03-18 18:00] LABS: Lactic Acid 0.8 mmol/L (0.5-2.0)
[2023-03-18 18:06] LABS: Alanine Aminotransferase 133 U/L (0-40); Albumin Level 2.8 g/dL (3.5-5.0); Alkaline Phosphatase 108 U/L (39-117); Anion Gap 10 (12-20); Aspartate Amino Transferase 107 U/L (5-37); Bilirubin Total 0.4 mg/dL (0.0-1.0); Blood Urea Nitrogen 13 mg/dL (9-16); C Reactive Protein 3.49 mg/dL (< or = 0.50); Calcium 8.9 mg/dL (8.4-10.2); Carbon Dioxide 26 mmol/L (22-29); Chloride 102 mmol/L (96-108); Creatinine Clr Calc Pharmacy 90.4; Estimated Glomerular Filt Rate > 60; Glucose Random 94 mg/dL (60-115); Potassium 4.3 mmol/L (3.3-5.1); Sodium 134 mmol/L (135-145)
[2023-03-18 18:35] LABS: Erythrocyte Sedimentation Rate 105 MM/HR (0-15)
--- NOTE | 2023-03-18 19:02 | ED.GENADULT ---
HPI - General Adult General Chief complaint: General Medical Stated complaint: needs antibiotics? Time Seen by Provider: 03/18/23 18:45 Source: patient and family (daughter) Mode of arrival: EMS Limitations: physical limitation History of Present Illness HPI narrative: Patient is a 73-year-old male recently admitted for osteomyelitis, left hip fracture presenting to the emergency department from [place] where patient was discharged to after his recent admission. Daughter reports that the facility has not given patient any of his medications since arrival to the facility, has not changed any of his dressings, has not even been feeding him his regularly scheduled meals. She also reports patient has recently developed a cough. MD complaint: missed antibiotics Onset (ago): day(s) Associated symptoms: cough Related Data Home Medications Medication Instructions Recorded Confirmed atorvastatin 80 mg tablet 80 mg PO BEDTIME 09/21/22 03/19/23 bupropion HCl 300 mg 24 hr tablet, 300 mg PO DAILY 09/21/22 03/19/23 extended release clopidogrel 75 mg tablet 75 mg PO DAILY 09/21/22 03/19/23 trazodone 50 mg tablet 25 mg PO DAILY 09/21/22 03/19/23 metoprolol tartrate 25 mg tablet 25 mg PO BID 03/10/23 03/19/23 cetirizine 10 mg tablet 10 mg PO DAILY PRN Allergy Symptoms 03/19/23 03/19/23 vancomycin 1,000 mg intravenous 1 g IV BID 03/19/23 03/19/23 injection Previous Rx's Medication Instructions Recorded acetaminophen 325 mg tablet 650 mg (2 x 325 mg) PO Q6H PRN 03/16/23 Pain, Mild (Pain Scale 1-3) #30 tabs collagenase clostridium histo. 250 1 appl topical BID #30 grams 03/16/23 unit/gram topical ointment (Santyl) enoxaparin 40 mg/0.4 mL 40 mg (0.4 mL) subcut Q24H #4 mL 03/16/23 subcutaneous syringe furosemide 20 mg tablet (Lasix) 20 mg PO Q OTHER DAY #30 tabs 03/16/23 lisinopril 10 mg tablet 10 mg PO DAILY #30 tabs 03/16/23 oxycodone 5 mg tablet 5 mg PO Q4H PRN Pain, 03/16/23 Moderate(Pain Scale 4-6) #20 tabs Allergies Allergy/AdvReac Type Severity Reaction Status Date / Time No Known Allergies Allergy Mild N/A Verified 10/31/22 14:39 Review of Systems Review of Systems: As per HPI. Yes all other systems are reviewed and are negative Constitutional: Constitutional: Reports as per HPI [facility] Past Medical History Medical History MDD (major depressive disorder) PVD (peripheral vascular disease) HLD (hyperlipidemia) CAD (coronary artery disease) Vertebrobasilar artery syndrome Osteomyelitis Hypertension Social History Social History Household Members: None Housing: House Do you presently have visiting nurse or other home services: Yes Unable to assess alcohol history related to: Refusing to respond Patient Tobacco Use Status: Former Tobacco user Smoked in Last 30 Days: No Use of substances other than those prescribed or required for medical reasons: No Advance Directives: Yes Advance Directives on File: Yes Advance Directives Date on File: 03/10/23 service: No Physical Exam ED Vital Signs: Vital Signs - 24 hr 03/18/23 16:03 03/18/23 20:10 03/18/23 22:05 Temperature 99.1 F 99.0 F 99.5 F Pulse Rate 81 101 H Respiratory Rate 16 18 Blood Pressure 145/67 H 144/59 H Pulse Oximetry 100 96 Oxygen Delivery Method Room Air Room Air 03/19/23 01:00 03/19/23 01:03 03/19/23 01:20 Temperature 101.7 F H Pulse Rate 114 H 119 H Respiratory Rate 18 18 Blood Pressure 179/84 H 170/77 H Pulse Oximetry 100 98 Oxygen Delivery Method Room Air Room Air 03/19/23 02:36 03/19/23 06:17 03/19/23 08:00 Temperature 100.0 F 99.8 F 100.1 F Pulse Rate 88 90 Respiratory Rate 17 18 Blood Pressure 132/58 L 146/59 H Pulse Oximetry 100 97 Oxygen Delivery Method Room Air Room Air 03/19/23 09:17 03/19/23 09:18 03/19/23 09:59 Temperature 98.9 F 98.9 F Pulse Rate 87 89 Respiratory Rate 18 18 Blood Pressure 133/54 L Pulse Oximetry 95 97 Oxygen Delivery Method Room Air BMI result Body Mass Index 26.3 Vital signs have been reviewed and appear to be correct. Blood pressure elevated. Heart rate normal. Respiratory rate normal. Temperature normal. Oxygen saturation normal. Const General: cooperative, healthy appearing and no acute distress Orientation/consciousness: oriented to person, oriented to place, oriented to time and patient oriented x3 Limitations: no limitations [facility] Head: Yes normocephalic and Yes atraumatic Ears: external ears normal General nose exam: Normal external nose present Face and sinus: Yes face symmetric Mouth: oropharynx normal and moist mucous membranes Throat: Yes uvula midline Eyes Pupils: Equal, round and reactive pupils present Neck Neck: Yes normal visual inspection and Yes supple Resp Effort & Inspection: normal respiratory effort and able to speak in complete sentences Auscultation: clear to auscultation bilaterally Cardio Rate: regular rate Rhythm: regular rhythm Heart sounds: S1 normal heart sound present and S2 normal heart sound present GI Palpation (GI): Soft to palpation and nontender Auscultation: normoactive bowel sounds Skin Other: General skin exam: elasticity normal and turgor normal Neuro General: oriented to person, oriented to place, oriented to time, patient oriented x3 and no focal motor deficits Cranial nerves: Yes Equal, round and reactive pupils present Cognition (Neuro): normal cognition Extrem Left lower extremity: hip/thigh Details: other (dressing to left hip) and lower leg Details: inspection abnormal (chronic ulcerated wound, granulation within subcutaneous tissue, xeroform stuck onto wound) Psych Mental Status: mental status grossly normal Affect: normal affect Thought process: Normal thought process present Course Course Course Narrative: 03/19/2023 12:52 Notified by nursing the patient was found supine on the floor next to his bed. Patient states that he did not fall, that he got up to use the urinal and laid down on the ground afterwards. He denies any headache, vision changes, neck or back pain, any other physical complaints. No new ecchymosis or swelling noted, head atraumatic, no midline c-spine, thoracic, or lumbar tenderness. CT head and C-spine ordered. Reevaluation(s) Reevaluation #1: 929-patient has known osteomyelitis of the left lower extremity and is receiving IV vancomycin. He was transferred from a short-term rehab and had missed several days of IV vancomycin. He is pending case management involvement for new placement. Nursing informed this morning the patient had a fever of 101.4 last evening. He has no physical complaint. A did review his labs and chest x-ray from yesterday. He does have a chronic microcytic anemia, although labs are unremarkable. I will obtain blood cultures and lactic acid, repeat labs this morning, UA. His chest x-ray from yesterday was unremarkable. His medications were reconciled this morning. Will continue physician observation pending disposition Reevaluation #2: I did speak to case management and patient will need a repeat physical therapy evaluation. Is repeat labs show anemia at baseline, otherwise unremarkable. Medications Administered Generic Name Dose Route Start Last Admin Trade Name Freq PRN Reason Stop Dose Admin Acetaminophen 650 mg 03/19/23 01:03 03/19/23 08:08 Acetaminophen 325 Mg Tablet PO 650 mg Q6H PRN Administration pain or fever Bupropion HCl 300 mg 03/19/23 08:45 03/19/23 10:03 Bupropion Hcl Xl 300 Mg Tab.Er.24h PO Not Given DAILY DARLENE Clopidogrel Bisulfate 75 mg 03/19/23 09:00 03/19/23 09:57 Clopidogrel Bisulfate 75 Mg Tablet PO 75 mg DAILY DARLENE Administration Collagenase 1 appl 03/18/23 23:45 03/19/23 10:04 Collagenase Clostridium Hist. 30 Gm Tube TOPICAL Not Given BID [facility] Protocol Enoxaparin Sodium 40 mg 03/19/23 10:00 03/19/23 09:58 Enoxaparin Sodium 40 Mg/0.4 Ml Syringe SUBCUT 40 mg Q24H DARLENE Administration Furosemide 20 mg 03/19/23 10:00 03/19/23 09:57 Furosemide 20 Mg Tablet PO 20 mg Q48H DARLENE Administration Protocol Vancomycin HCl 1,000 mg/ 270 mls @ 270 mls/hr 03/19/23 08:00 03/19/23 09:19 Sodium Chloride IV Infused Q12H DARLENE Infusion Lisinopril 10 mg 03/19/23 09:00 03/19/23 09:57 Lisinopril 10 Mg Tablet PO 10 mg DAILY DARLENE Administration Protocol Metoprolol Tartrate 25 mg 03/19/23 09:00 03/19/23 09:57 Metoprolol Tartrate 25 Mg Tablet PO 25 mg BID DARLENE Administration Protocol Trazodone HCl 25 mg 03/19/23 09:00 11/12/23 09:57 Trazodone Hcl 25 Mg Halftab PO 25 mg DAILY DARLENE Administration Discontinued Medications Generic Name Dose Route Start Last Admin Trade Name Toi PRN Reason Stop Dose Admin Vancomycin HCl 1,500 mg/ 500 mls @ 333.333 mls/hr 03/18/23 19:18 03/18/23 22:27 Sodium Chloride IV 03/18/23 20:47 Infused ONCE ONE Infusion Morphine Sulfate 4 mg 03/18/23 21:57 03/18/23 22:06 Morphine Sulfate 4 Mg/Ml Cartridge IVPUSH 03/18/23 21:58 4 mg ONCE ONE Administration Protocol Medical Decision Making Medical Decision Making [facility] Narrative: Patient is a 73-year-old male recently admitted for osteomyelitis, left hip fracture presenting to the emergency department from [place] where patient was discharged to after his recent admission. On exam patient is awake, A+Ox3,BP elevated, VS otherwise WNL, afebrile, normal neurological exam without focal deficits, physical exam findings as above. Of note, patient arrived with Xeroform gauze dried to his left lower extremity wounds. Vaseline and warm moist dressing applied. Xeroform able to be removed after dressings saturated with Vaseline. Given reported symptoms and physical exam findings, initial differential includes left hip fracture, osteomyelitis, pneumonia, viral upper respiratory infection. Labs notable for mild leukocytosis improved since discharge, elevated LFTs, consistent with prior, CRP improved since admission, ESR remains elevated. X-ray chest shows no evidence of pneumonia. My interpretation is in agreement with the radiologist's interpretation. Case discussed with pharmacist who feels patient should receive loading dose of Vanco at 1500mg, then have pharmacy consult prior to obtaining trough levels. Will place patient on physician observation pending case management involvement for new STR placement. Differential Diagnosis Differential Diagnoses: The differential diagnosis associated with the presentation includes As per [facility]. Admission/Observation Consideration of admission/observation: Escalation of care including admission/observation considered Lab Data [facility] Lab Attestation statement: I reviewed the patient's lab results. As per MDM. 03/19/23 08:58 03/19/23 08:58 Labs: Lab Results 03/18/23 03/19/23 03/19/23 Range/Units 17:43 06:23 08:58 WBC 11.8 H 10.9 H (4.8-10.8) X10*3/uL RBC 2.98 L 2.78 L (4.60-5.80) X10*6/uL Hgb 8.2 L 7.7 L (14.0-18.0) g/dl Hct 26.0 L 24.3 L (42.0-52.0) % MCV 87.2 87.4 (80.0-98.0) fL MCH 27.5 27.7 (27.0-33.0) pg MCHC 31.5 31.7 (31.0-36.0) g/dl RDW 15.8 15.7 (11.0-16.0) % Plt Count 502 H 482 H (160-400) X10*3/uL MPV 8.7 L 8.6 L (9.4-12.4) fL Immature Gran % (Auto) 1.2 H 0.9 H (0.0-0.4) % Neut % (Auto) 65.0 68.4 (45-73) % Lymph % (Auto) 19.0 L 15.3 L (20-40) % [place] % (Auto) 9.3 10.9 (2-11) % Eos % (Auto) 5.0 H 4.0 (0-4) % Baso % (Auto) 0.5 0.5 (0-2) % Lymph # (Auto) 2.2 1.7 (1.2-4.9) X10*3/uL [place] # (Auto) 1.1 1.2 (0.1-1.2) X10*3/uL Eos # (Auto) 0.6 H 0.4 (0.0-0.4) X10*3/uL Baso # (Auto) 0.1 0.1 (0.0-0.2) X10*3/uL Abs Immat Gran (auto) 0.14 H 0.10 H (0.00-0.03) X10*3/uL Absolute Neuts (auto) 7.7 7.4 (2.0-8.3) x10*3/uL Absolute Nucleated RBC 0.000 0.000 (0.0-0.012) X10*3/uL Nucleated RBC % (auto) 0.0 0.0 (0.0-0.2) /100WBC ESR 105 H (0-15) MM/HR PT 13.6 H (11.1-13.3) SEC INR 1.1 (0.9-1.1) Sodium 134 L 135 (135-145) mmol/L Potassium 4.3 3.8 (3.3-5.1) mmol/L Chloride 102 102 (96-108) mmol/L Carbon Dioxide 26 24 (22-29) mmol/L Anion Gap 10 L 13 (12-20) BUN 13 9 (9-16) mg/dL Creatinine 0.68 0.69 0.63 (0.5-1.4) mg/dL Estim Creat Clear Calc 90.4 89.1 97.6 Estimated GFR > 60 > 60 > 60 Random Glucose 94 102 (60-115) mg/dL Lactic Acid 0.8 0.9 (0.5-2.0) mmol/L Calcium 8.9 D 8.3 L D (8.4-10.2) mg/dL Total Bilirubin 0.4 (0.0-1.0) mg/dL AST 107 H (5-37) U/L ALT 133 H (0-40) U/L Alkaline Phosphatase 108 (39-117) U/L C-Reactive Protein 3.49 H (< or = 0.50) mg/dL Total Protein 7.0 (6.5-8.0) g/dL Albumin 2.8 L (3.5-5.0) g/dL Independent Interpretation I performed an independent interpretation of an: Plain X-Ray Interpretation: No evidence of pneumonia Radiology Impression Discussion of test interpretation with radiology: I have reviewed the radiologist's reading. Radiologist Impression: XR/XR chest 1V IMPRESSION: No acute cardiopulmonary findings. External Record Review External record reviewed: Inpatient record, Office record and Outpatient record Prescription Management I considered prescription management with: Antibiotic Discharge Plan Discharge Clinical Impression: Osteomyelitis, Closed fracture of left hip Patient Disposition: Still a Patient Prescriptions: No Action metoprolol tartrate 25 mg tablet 25 mg PO BID lisinopril 10 mg Tablet 10 mg PO DAILY Qty: 30 0RF Protocol: Hold for SBP< HOLD for SBP < : 90 Santyl 250 unit/gram Ointment 1 appl topical BID Qty: 30 0RF Protocol: Apply to: Apply to: left briseno followed by dry sterile dressings and Kerlix oxycodone 5 mg Tablet 5 mg PO Q4H PRN (Reason: Pain, Moderate(Pain Scale 4-6)) Qty: 20 0RF Rx Instructions: Partial Fill upon patient request. acetaminophen 325 mg Tablet 650 mg PO Q6H PRN (Reason: Pain, Mild (Pain Scale 1-3)) Qty: 30 0RF enoxaparin 40 mg/0.4 mL Syringe 40 mg subcut Q24H Qty: 4 0RF Rx Instructions: Use Lovenox 40 mg for total 6 weeks end date apr 24 furosemide [Lasix] 20 mg tablet 20 mg PO Q OTHER DAY Qty: 30 0RF cetirizine 10 mg Tablet 10 mg PO DAILY PRN (Reason: Allergy Symptoms) vancomycin 1,000 mg Recon Soln 1 g IV BID bupropion HCl 300 mg tablet extended release 24 hr 300 mg PO DAILY clopidogrel 75 mg tablet 75 mg PO DAILY atorvastatin 80 mg tablet 80 mg PO BEDTIME trazodone 50 mg tablet 25 mg PO DAILY
[2023-03-18] MEDS: vancomycin HCL 1,500 MG in 0.9 % Sodium Chloride 500 ML 333.33 MG IV (20:05)
[2023-03-18 20:10] VITALS: TEMP 37.2
--- NOTE | 2023-03-18 20:10 | PC.NURSE ---
this RN assumed care of pt. per provider verbal order, applied petroleum jelly over pt left lower leg wound, applied a wet compress to soak. pt tolerated well. vanco started at this time through pt picc line in right forearm, per provider verbal order no blood cultures needed at this time.
[2023-03-18 22:05] VITALS: BP 144/59; PULSE 101; RESP 18; TEMP 37.5; O2SAT 96
[2023-03-18] MEDS: Morphine Sulfate 4 MG/ML CARTRIDGE IVPUSH (22:06)
--- NOTE | 2023-03-18 22:24 | PC.NURSE ---
this RN and Mayda WASTE MANAGEMENT RECYCLING TECHNICIAN, removed pt old dressing on lower left calf. pt tolerated procedure well. per verbal order by provider, leave wound open to air.
--- NOTE | 2023-03-18 22:27 | PC.NURSE ---
pt tierney Gold at bedside, pt and Alla request case management to follow up with Alla before pt is placed anywhere.
[2023-03-19] VITALS (12 sets, daily range): BP systolic 120–179; BP diastolic 49–84; PULSE 69–119; RESP 17–20; TEMP 36.3–38.7; O2SAT 95–100
--- NOTE | 2023-03-19 01:03 | PC.NURSE ---
upon entering pt room, this RN and Masood RN noticed pt to be on floor wrapped in blankets. pt stated i was sleeping on the floor , pt denies falling out of bed and pain at this time. Pt alert and oriented and able to answer questions appropriately in full sentences. Gladys MOTORCYCLE BUILDER at bedside to assess the pt. pt moved off floor into hospital bed at this time. prior to fall, fall risk precautions in place. pt changed into hospital bed with bed alarm, pt re-educated on use of call johnson.
--- NOTE | 2023-03-19 01:20 | PC.NURSE ---
this RN re-dressed pt lower left calf wound, pt tolerated procedure well. Hold on ordered ointment due to not having it available.
[2023-03-19] MEDS: Acetaminophen 325 MG TABLET 650 MG PO ×3 (01:22→14:58)
--- NOTE | 2023-03-19 02:33 | PC.NURSE ---
pt requesting urinal at this time, pt voided 200ml of yellow urine.
--- NOTE | 2023-03-19 02:51 | PC.NURSE ---
med req completed for pt at this time. confirmed medications with facility provided paper.
--- NOTE | 2023-03-19 03:05 | PC.NURSE ---
attempted to place pt on 1:1 camera, camera room states they can no longer take any more pt to watch at this time.
--- NOTE | 2023-03-19 04:23 | PC.NURSE ---
pt has 1:1 camera at this time, pt resting in bed comfortably.
--- NOTE | 2023-03-19 04:33 | PC.NURSE ---
pt awake at this time requesting urinal. pt states where i am , reinsured pt he is in the [facility] emergency department. aware at this time.
[2023-03-19 06:38] LABS: Creatinine Clr Calc Pharmacy 89.1; Estimated Glomerular Filt Rate > 60
[2023-03-19] MEDS: vancomycin HCL 1,000 MG in 0.9 % Sodium Chloride 250 ML 270 MG IV ×2 (08:03→21:40)
--- NOTE | 2023-03-19 08:14 | PC.NURSE ---
patient resting in bed, calm and cooperative. bed in lowest position with alarm on, patient on video monitor for safety. utilized prn tylenol patient temp 100.1. respirations equal and unlabored. medicated per JUL
[2023-03-19 09:04] LABS: MANUAL DIFF FLAG NO
[2023-03-19 09:05] LABS: Basophils Absolute Auto 0.1 X10*3/uL (0.0-0.2); Basophils Percent Auto 0.5 % (0-2); Eosinophils Absolute Auto 0.4 X10*3/uL (0.0-0.4); Hematocrit 24.3 % (42.0-52.0); Hemoglobin 7.7 g/dl (14.0-18.0); Imm Gran Pct Auto 0.9 % (0.0-0.4); Lymphocytes Absolute Auto 1.7 X10*3/uL (1.2-4.9); Lymphocytes Percent Auto 15.3 % (20-40); Mean Corpuscular HGB Conc 31.7 g/dl (31.0-36.0); Mean Corpuscular Hemoglobin 27.7 pg (27.0-33.0); Mean Corpuscular Volume 87.4 fL (80.0-98.0); Mean Platelet Volume 8.6 fL (9.4-12.4); Monocytes Absolute Auto 1.2 X10*3/uL (0.1-1.2); Monocytes Percent Auto 10.9 % (2-11); Neutrophils Absolute Auto 7.4 x10*3/uL (2.0-8.3); Neutrophils Percent Auto 68.4 % (45-73); Platelet Count 482 X10*3/uL (160-400); Red Blood Count 2.78 X10*6/uL (4.60-5.80); Red Cell Distribution Width 15.7 % (11.0-16.0); White Blood Count 10.9 X10*3/uL (4.8-10.8)
[2023-03-19 09:17] LABS: Lactic Acid 0.9 mmol/L (0.5-2.0)
[2023-03-19 09:19] LABS: Anion Gap 13 (12-20); Blood Urea Nitrogen 9 mg/dL (9-16); Calcium 8.3 mg/dL (8.4-10.2); Carbon Dioxide 24 mmol/L (22-29); Chloride 102 mmol/L (96-108); Creatinine Clr Calc Pharmacy 97.6; Estimated Glomerular Filt Rate > 60; Glucose Random 102 mg/dL (60-115); Potassium 3.8 mmol/L (3.3-5.1); Sodium 135 mmol/L (135-145)
--- NOTE | 2023-03-19 09:34 | PHA.MEDREC ---
Pharmacy Consult ? Medication Reconciliation Pharmacy has completed the medication reconciliation. Patient had list from [place], discrepancy between bupropion 100mg 3 tabs daily on med list vs claim history for 300mg XL daily, based on the fact that the prescription has been picked up from [facility] consistently I chose the dose based on claim history. There is also vanco 1g BID on med list not included on med rec from nursing
[2023-03-19] MEDS: lisinopriL 10 MG TABLET PO (09:57)
[2023-03-19] MEDS: traZODone HCL 25 MG HALFTAB PO (09:57)
[2023-03-19] MEDS: Clopidogrel Bisulfate 75 MG TABLET PO (09:57)
[2023-03-19] MEDS: Furosemide 20 MG TABLET PO (09:57)
[2023-03-19] MEDS: Metoprolol Tartrate 25 MG TABLET PO ×2 (09:57→21:56)
[2023-03-19] MEDS: buPROPion HCl XL 300 MG TAB.ER.24H PO (09:58)
[2023-03-19] MEDS: Enoxaparin Sodium 40 MG/0.4 ML SYRINGE SUBCUT (09:58)
--- NOTE | 2023-03-19 10:04 | PC.NURSE ---
patient resting in bed, wakes up to verbal stimuli, patient medicated per JUL, respirations equal and unlabored, VM in place for pt safety
--- NOTE | 2023-03-19 12:27 | PC.NURSE ---
patient family visiting at bedside, patient engaging in conversation.
--- NOTE | 2023-03-19 13:01 | PC.NURSE ---
patient 2 assist to the commode, patient had bowel movement.
--- NOTE | 2023-03-19 14:22 | MHC.CM.PN ---
Addendum entered by Karlee Newton RN 03/19/23 14:30: [facility] REVIEWING AND [facility] WILL REVIEW TOMORROW. Original Note: EMR REVIEWED, PT W/HIP FX AND OSTEO W/NEED FOR 6WKS IV VANCO 1000MG AND DC'D TO [facility] ON 04/15, CM MET W/PT AND NIECE/HCP WHO REPORTED PT WAS NOT GIVEN HIS IV ABX WHILE AND WASN'T GIVEN SOME OF HIS MEALS WELL, PT /NIECE REFUSING TO GO BACK AND THEY DO NOT WANT [facility] EITHER NIECE IS VERY FAMILIAR W/THAT FACILITY, PT HAD INITIALLY PREFERRED [facility]/ ARE[facility], SNF REFERRAL PLACED TO 50 MILE RADIUS HE HAS [facility] AND [facility] WERE ONLY FACILITIES THAT OFFERED PREVIOUS VISIT. Demarco SCOTT PENDING.
--- NOTE | 2023-03-19 15:00 | PC.NURSE ---
patient resting in bed, VSS. respirations equal and unlabored. patient stated he has a headache, utilized PRN tylenol for pain.
[2023-03-19] MEDS: oxyCODONE HCl Immed Release 5 MG TABLET PO (18:25)
--- NOTE | 2023-03-19 18:46 | PC.NURSE ---
Patient transferred to [facility] at 1700, refused dinner tray stating he was not hungry. For the c/o pain patient was medicated with 5mg oxycodone. Alert and oriented to person, place and situation. PICC line in R arm for IV antibiotics to treat osteomyelitis.
--- NOTE | 2023-03-19 20:08 | PC.NURSE ---
Pharmacy called regarding vanco trough not being done. Lab drawn and sent. Shawna scheduled for 1999 on hold pending vanco trough results.
[2023-03-19 20:26] LABS: Vancomycin Random 13.9 mcg/mL (15-20)
[2023-03-19 20:34] LABS: Appearance Urine Clear; Color Urine Yellow; Glucose Urine UA Negative (Negative); Leukocyte Esterase Urine Negative (Negative); Nitrite Urine Negative (Negative); UMIC TRIGGER UACC YES; Urine Blood Negative (Negative); Urine Ketones Negative (Negative); Urine Protein 30 (1+) mg/dL (Neg-Trace)
[2023-03-19 20:37] LABS: Bacteria Urine None Seen (None Seen); Hyaline Casts Urine 0-2 /LPF (0-2); RBC Urine 0-2 /HPF (0-2); Squamous Epithelial Cell Urine 0-2 /HPF (0-2); WBC Urine 0-5 /HPF (0-5)
[2023-03-19] MEDS: Atorvastatin Calcium 80 MG TABLET PO (21:56)
--- NOTE | 2023-03-19 22:14 | PC.NURSE ---
Called pharmacy regarding missing Santyl medication in the Pyxis. Pharmacy reports will bring medication to ED overflow.
[2023-03-19] MEDS: Collagenase Clostridium Hist. 30 GM TUBE 1 APPL TOPICAL (22:29)
--- NOTE | 2023-03-19 22:52 | PC.NURSE ---
Left lower leg dressing removed. Moderate amount of purulent drainage noted. Santyl ointment applied to wound as prescribed, sterile dressing applied and wrapped. Pt tolerated well.
--- NOTE | 2023-03-20 01:06 | PC.NURSE ---
Pt sleeping in no apparent distress. Breaths are even regular and unlabored with equal chest rises. Bed alarm is on. Video monitor in place. Monitoring is ongoing.
--- NOTE | 2023-03-20 04:42 | PC.NURSE ---
Pt awake requesting to sit on reclyner. Pt currently sitting on reclyner eating snacks. Tea provided as requested. No apparent distress noted. Video monitor in place. Belongings and call johnson placed within reach.
[2023-03-20 06:40] VITALS: BP 107/49; PULSE 77; RESP 16; TEMP 36.6; O2SAT 96
[2023-03-20 06:46] LABS: Creatinine Clr Calc Pharmacy 83.1; Estimated Glomerular Filt Rate > 60
[2023-03-20] MEDS: lisinopriL 10 MG TABLET PO (08:48)
[2023-03-20] MEDS: traZODone HCL 25 MG HALFTAB PO (08:48)
[2023-03-20] MEDS: Metoprolol Tartrate 25 MG TABLET PO ×2 (08:48→20:35)
[2023-03-20] MEDS: buPROPion HCl XL 300 MG TAB.ER.24H PO (08:50)
--- NOTE | 2023-03-20 08:50 | MHC.CM.ED ---
Patient remains in ER overflow. Physical therapy eval is pending. Clinical updates sent to facilities still following patient: [facility], [facility], [facility], [facility], [facility], [facility], [facility], [facility] [facility], and [facility]. Continue to monitor for d/c needs.
[2023-03-20 09:01] VITALS: BP 109/70; PULSE 81; O2SAT 98
[2023-03-20] MEDS: Collagenase Clostridium Hist. 30 GM TUBE 1 APPL TOPICAL ×2 (09:18→20:35)
[2023-03-20] MEDS: Enoxaparin Sodium 40 MG/0.4 ML SYRINGE SUBCUT (09:20)
[2023-03-20 10:56] LABS: MANUAL DIFF FLAG NO
[2023-03-20 10:57] LABS: Basophils Absolute Auto 0.1 X10*3/uL (0.0-0.2); Basophils Percent Auto 0.6 % (0-2); Eosinophils Absolute Auto 0.6 X10*3/uL (0.0-0.4); Hematocrit 28.2 % (42.0-52.0); Hemoglobin 8.6 g/dl (14.0-18.0); Imm Gran Abs Auto 0.08 X10*3/uL (0.00-0.03); Imm Gran Pct Auto 0.9 % (0.0-0.4); Lymphocytes Percent Auto 23.3 % (20-40); Mean Corpuscular HGB Conc 30.5 g/dl (31.0-36.0); Mean Corpuscular Hemoglobin 27.2 pg (27.0-33.0); Mean Corpuscular Volume 89.2 fL (80.0-98.0); Mean Platelet Volume 8.6 fL (9.4-12.4); Monocytes Percent Auto 11.1 % (2-11); Neutrophils Absolute Auto 4.9 x10*3/uL (2.0-8.3); Neutrophils Percent Auto 57.1 % (45-73); Platelet Count 478 X10*3/uL (160-400); Red Blood Count 3.16 X10*6/uL (4.60-5.80); Red Cell Distribution Width 15.9 % (11.0-16.0); White Blood Count 8.5 X10*3/uL (4.8-10.8)
[2023-03-20 11:02] LABS: OBS Int Ctl Valid YES; OBS1 NEGATIVE (NEGATIVE)
[2023-03-20 11:06] LABS: COVID-19 Test Positive (Negative); IDNOW Serial# 08D9AD1C
[2023-03-20 11:13] LABS: Alanine Aminotransferase 85 U/L (0-40); Albumin Level 2.7 g/dL (3.5-5.0); Alkaline Phosphatase 106 U/L (39-117); Anion Gap 11 (12-20); Aspartate Amino Transferase 68 U/L (5-37); Bilirubin Total 0.3 mg/dL (0.0-1.0); Blood Urea Nitrogen 11 mg/dL (9-16); Calcium 8.4 mg/dL (8.4-10.2); Carbon Dioxide 26 mmol/L (22-29); Chloride 99 mmol/L (96-108); Creatinine Clr Calc Pharmacy 86.6; Estimated Glomerular Filt Rate > 60; Glucose Random 94 mg/dL (60-115); Magnesium 2.1 mg/dL (1.6-2.6); Sodium 132 mmol/L (135-145); Total Protein 6.8 g/dL (6.5-8.0)
[2023-03-20 11:16] LABS: Vancomycin Trough 13.9 mcg/mL (10.0-20.0)
[2023-03-20] MEDS: vancomycin HCL 1,000 MG in 0.9 % Sodium Chloride 250 ML 270 MG IV (11:30)
--- NOTE | 2023-03-20 12:16 | MHC.CM.ED ---
Patient's Covid swab today is positive. Patient will be difficult due to this. Dr Nunes made aware. Patient's niece, Alla, made aware via telephone at [phone]. Alla aware patient will stay in the ER until considered Covid recovered. If repeat Covid swab is on 03/25, placement may be able to be found. If 03/25 Covid swab is positive, will not be able to place before 03/31. Continue to monitor for d/c needs.
[2023-03-20 13:47] VITALS: BP 122/58; PULSE 66; RESP 20; TEMP 36.1; O2SAT 97
[2023-03-20 15:30] VITALS: BP 121/47; PULSE 75; RESP 16; TEMP 36.8; O2SAT 98
--- NOTE | 2023-03-20 15:43 | MHC.EDTECH ---
This pct assumed care of pt at 1500,vitals taken ,pt was assisted unto bedside commode ,had lg loose bowel movement ,Patient back in bed ,warm blanket given .
[2023-03-20 17:20] LABS: Immature Retic Fraction 22.5 % (2.3-13.4); Retic HGB Equivalent 28.8 pg (30.0-35.0); Reticulocyte Percent 3.5 % (0.5-1.8); Reticulocytes Absolute 0.109 X10*6/uL (0.026-0.095)
--- NOTE | 2023-03-20 18:26 | MHC.EDTECH ---
Patient was set up with dinner ,ate 100 % of meal ,drank 360 ml fluids .
--- NOTE | 2023-03-20 18:26 | PC.NURSE ---
MEDS GIVEN DOCUMENTED, VSS. REPORTS 02/14 [address] PAIN. SHAMIRO TROUGH DRAWN THIS AM. VANCO GIVEN LATE D/T WAITING ON LAB RESULT.
--- NOTE | 2023-03-20 19:43 | PC.NURSE ---
Spoke with the Pharmacy about the vanco trough. There was a confusion from the nursing side because there was a vanco trough done early today at 10am in the morning. Last dose of vanco was also given later than the scheduled time. Pharmacy changed the vanco trough tomorrow 03/21 at 11am. A dose tonight will be given as scheduled.
[2023-03-20 20:08] VITALS: BP 132/70; PULSE 77; RESP 16; TEMP 36.5; O2SAT 97
--- NOTE | 2023-03-20 20:19 | MHC.EDTECH ---
Patient vitals taken ,pt had a sponge bath ,clean gown on and clean warm blanket given ,Pt belongings list done .
[2023-03-20] MEDS: Acetaminophen 325 MG TABLET 650 MG PO (20:35)
--- NOTE | 2023-03-20 20:43 | MHC.EDTECH ---
RADHA Woodruff said not to draw the repeated lab [facility] .
--- NOTE | 2023-03-20 20:52 | PC.NURSE ---
wound care done. left foot still swollen.
[2023-03-20] MEDS: Atorvastatin Calcium 80 MG TABLET PO (21:32)
--- NOTE | 2023-03-20 23:57 | MHC.EDTECH ---
0000 rounding done ,Pt sleeping ,no apparent distress noted ,bed alarm on ,And telle sitter camera in room .
[2023-03-21] MEDS: vancomycin HCL 1,000 MG in 0.9 % Sodium Chloride 250 ML 270 MG IV ×2 (01:22→14:49)
--- NOTE | 2023-03-21 05:56 | PC.NURSE ---
assist pt with emptying urinal, gave fresh water.
[2023-03-21 06:24] VITALS: BP 126/63; PULSE 76; RESP 16; TEMP 36.5; O2SAT 95
--- NOTE | 2023-03-21 06:25 | MHC.EDTECH ---
Patient slept most of the night ,0600 ,vitals taken ,Pt reposition self in bed through out the night ,fresh Pitcher of ice water given and 250 ml urine empty from urinal ,call johnson within Pt reach ,bed alarm on bed and telle sitter camera in room .
--- NOTE | 2023-03-21 08:24 | PC.NURSE ---
assumed care of pt at 0700. pt a&o x4, with some confusion. pt sat at side of bed and ate breakfast. currently getting washed up and into the recliner. pt offers no complaints kalyn. awaiting placement. call johnson within pt reach. rr even/unlabored. sitter camera in place for pt safety. plan of care ongoing.
[2023-03-21 11:18] VITALS: BP 113/57; PULSE 83; RESP 18; TEMP 36.4; O2SAT 99
[2023-03-21] MEDS: Clopidogrel Bisulfate 75 MG TABLET PO (11:19)
[2023-03-21 11:20] LABS: MANUAL DIFF FLAG NO
[2023-03-21] MEDS: Furosemide 20 MG TABLET PO (11:20)
[2023-03-21] MEDS: buPROPion HCl XL 300 MG TAB.ER.24H PO (11:20)
[2023-03-21] MEDS: lisinopriL 10 MG TABLET PO (11:20)
[2023-03-21] MEDS: Enoxaparin Sodium 40 MG/0.4 ML SYRINGE SUBCUT (11:21)
[2023-03-21 11:22] LABS: Basophils Absolute Auto 0.1 X10*3/uL (0.0-0.2); Basophils Percent Auto 0.8 % (0-2); Eosinophils Absolute Auto 0.3 X10*3/uL (0.0-0.4); Eosinophils Percent Auto 4.4 % (0-4); Hematocrit 29.7 % (42.0-52.0); Hemoglobin 9.3 g/dl (14.0-18.0); Imm Gran Abs Auto 0.04 X10*3/uL (0.00-0.03); Imm Gran Pct Auto 0.5 % (0.0-0.4); Lymphocytes Absolute Auto 1.6 X10*3/uL (1.2-4.9); Lymphocytes Percent Auto 20.2 % (20-40); Mean Corpuscular HGB Conc 31.3 g/dl (31.0-36.0); Mean Corpuscular Hemoglobin 27.4 pg (27.0-33.0); Mean Corpuscular Volume 87.6 fL (80.0-98.0); Mean Platelet Volume 8.4 fL (9.4-12.4); Monocytes Absolute Auto 0.7 X10*3/uL (0.1-1.2); Monocytes Percent Auto 9.1 % (2-11); Platelet Count 531 X10*3/uL (160-400); Red Blood Count 3.39 X10*6/uL (4.60-5.80); White Blood Count 7.7 X10*3/uL (4.8-10.8)
[2023-03-21] MEDS: oxyCODONE HCl Immed Release 5 MG TABLET PO ×2 (11:26→21:32)
[2023-03-21] MEDS: Metoprolol Tartrate 25 MG TABLET PO ×2 (11:26→21:29)
[2023-03-21 11:34] LABS: Vancomycin Random 16.4 mcg/mL (15-20)
[2023-03-21 11:35] LABS: Creatinine Clr Calc Pharmacy 76.8; Estimated Glomerular Filt Rate > 60
--- NOTE | 2023-03-21 11:46 | HE.PHANOTE ---
RE VANCO DOSING PT IS WITHIN RANGE WITH LEVEL 16.4 TODAY BUT WILL RECHECK TOMORROW @1100 HE WAS ON VANCO IN HIS GROUP HOME BUT WAS RELOADED WHEN HE WAS IN THE ED. THIS WAY WE CAN BE SURE HE IS NOT OVERTREATED. CONTINUE TO MONITOR RENAL FUNCTION DAILY.
[2023-03-21 14:00] VITALS: BP 93/51; PULSE 70; RESP 17; TEMP 36.4; O2SAT 100
--- NOTE | 2023-03-21 14:16 | PC.NURSE ---
son niece at bedside visiting with pt.
[2023-03-21] MEDS: Collagenase Clostridium Hist. 30 GM TUBE 1 APPL TOPICAL ×2 (14:36→21:32)
--- NOTE | 2023-03-21 14:42 | PC.NURSE ---
wound dressing changed to right lower extremity. pt tolerated well. pt currently sitting up in recliner in no apparent distress. call johnson within pt reach. plan of care ongoing.
[2023-03-21 16:47] VITALS: BP 120/56; PULSE 70; RESP 16; TEMP 36.6; O2SAT 97
[2023-03-21 20:24] VITALS: BP 125/62; PULSE 76; RESP 20; TEMP 36.7; O2SAT 99
[2023-03-21 20:51] LABS: Haptoglobin 323 MG/DL ((30-200))
[2023-03-21] MEDS: Atorvastatin Calcium 80 MG TABLET PO (21:29)
--- NOTE | 2023-03-21 21:30 | PC.NURSE ---
Pt aox3 sitting on the recliner. No apparent distress noted. LLE dressing changed and santyl ointment applied as prescribed. Moderate purulent drainage noted. Pt tolerated well.
[2023-03-22] MEDS: vancomycin HCL 1,000 MG in 0.9 % Sodium Chloride 250 ML 270 MG IV (01:27)
--- NOTE | 2023-03-22 03:53 | PC.NURSE ---
Pt asleep at the bedside in no apparent distress. Breaths are even regular and unlabored with equal chest rises. Bed alarm is on. Video monitoring in place. Monitoring ongoing.
[2023-03-22] MEDS: oxyCODONE HCl Immed Release 5 MG TABLET PO (05:13)
--- NOTE | 2023-03-22 05:15 | PC.NURSE ---
Pt reporting increased LLE pain, 6/10. Medicated as ordered prn. Pt tolerated well.
[2023-03-22 05:21] VITALS: BP 122/60; PULSE 76; RESP 16; TEMP 36.7; O2SAT 97
--- NOTE | 2023-03-22 08:19 | MHC.CM.ED ---
Addendum entered by Rachell Coats 03/22/23 09:30: Received notification that [facility] has a Covid bed available today. Alla made aware and accepts bed. [facility] has been asked to go for ins auth. Original Note: Patient remains in ER overflow. Tested positive for Covid on 03/20. Placement has been difficult to find due to this. [facility] would be 1st choice once Covid recovered. Continue to monitor for d/c needs.
[2023-03-22 09:35] VITALS: BP 131/54; PULSE 86; RESP 16; TEMP 37; O2SAT 96
[2023-03-22] MEDS: lisinopriL 10 MG TABLET PO (09:36)
[2023-03-22] MEDS: buPROPion HCl XL 300 MG TAB.ER.24H PO (09:37)
[2023-03-22] MEDS: Enoxaparin Sodium 40 MG/0.4 ML SYRINGE SUBCUT (09:37)
[2023-03-22] MEDS: Clopidogrel Bisulfate 75 MG TABLET PO (09:37)
[2023-03-22] MEDS: Metoprolol Tartrate 25 MG TABLET PO ×2 (09:37→21:23)
[2023-03-22] MEDS: traZODone HCL 25 MG HALFTAB PO (09:37)
--- NOTE | 2023-03-22 10:00 | PC.NURSE ---
PT IS A/O X 3 NO SOB/FAMILIA NOTED SPEAKS IN FULL SENTENCES. L HIP DRESSING REMAINS IN PLACE (L HIP SURGERY). PT IS COVID + PRECAUTIONS MAINTAINED. PT HAS A PICC LINE TO R ARM WHICH FLUSHES SLOW, BUT PATENT. PT IS AWARE OF PLAN OF CARE
[2023-03-22 10:01] LABS: Creatinine Clr Calc Pharmacy 76.8; Estimated Glomerular Filt Rate > 60
--- NOTE | 2023-03-22 10:40 | HE.PHANOTE ---
RE: VANCO On 03/22/23, trough came back as 20 which is higher than prediction of 17.8. Dose is now decreased to 750mg q12h starting @1300 with predicted AUC of 514 and trough of 17.3 (which possibly may come back higher, but still desired due to serious indication of bone/joint infection). Will continue to monitor renal functions for safety and efficacy with random trough scheduled for 03/23 @1100 and will adjust accordingly.
--- NOTE | 2023-03-22 11:00 | PC.NURSE ---
PT'S L LOWER LEG IS EDEMATOUS 3+ PITTING. PT HAS A WIDE/LARGE AREA OF WOUND TO L LOWER LEG. DRESSING CHANGE WITH SANTYL (FIRST CLEANSED WITH N/S) FOLLOWED BY TELFA THEN COVERING DRESSING. PT TOLERATED DERESSING CHANGE WELL. PT AWARE OF PLAN OF CARE
[2023-03-22] MEDS: Collagenase Clostridium Hist. 30 GM TUBE 1 APPL TOPICAL ×2 (11:30→21:28)
[2023-03-22 14:00] VITALS: BP 125/53; PULSE 73; RESP 14; TEMP 37.1; O2SAT 97
[2023-03-22] MEDS: vancomycin HCL 750 MG in 0.9 % Sodium Chloride 250 ML 265 MG IV (14:29)
[2023-03-22] MEDS: Atorvastatin Calcium 80 MG TABLET PO (21:23)
[2023-03-22 21:24] VITALS: BP 122/54; PULSE 80; RESP 16; TEMP 36.6; O2SAT 97
--- NOTE | 2023-03-22 21:43 | PC.NURSE ---
Assumed care of PT at 1900. PT Alert and oriented. This RN assisted pt to bed from chair. PT unable to bear weight on left leg. state it felt . Wound dressing changed and medication applied to slough. Medication adminsitered as per JUL. video monitoring on, bed alarm activated. call johnson within reach
[2023-03-23] MEDS: vancomycin HCL 750 MG in 0.9 % Sodium Chloride 250 ML 265 MG IV (00:56)
[2023-03-23] MEDS: traZODone HCL 25 MG HALFTAB PO (08:53)
[2023-03-23] MEDS: Furosemide 20 MG TABLET PO (08:53)
[2023-03-23] MEDS: buPROPion HCl XL 300 MG TAB.ER.24H PO (08:53)
[2023-03-23] MEDS: lisinopriL 10 MG TABLET PO (08:53)
[2023-03-23] MEDS: Collagenase Clostridium Hist. 30 GM TUBE 1 APPL TOPICAL (08:53)
[2023-03-23] MEDS: Clopidogrel Bisulfate 75 MG TABLET PO (08:53)
[2023-03-23] MEDS: Metoprolol Tartrate 25 MG TABLET PO (08:53)
[2023-03-23] MEDS: Enoxaparin Sodium 40 MG/0.4 ML SYRINGE SUBCUT (08:53)
--- NOTE | 2023-03-23 09:33 | HO.WOUND ---
Wound Consult: Initial 73yr old male transferred to [facility] on 03/18/23 due to lack of care from facility per pt and family statement in chart review. See progress notes and H&P for detailed history. Pt and chart review confirm pt set for d/c today to new facility for continued care. Pt follows with [facility] - recommend at time of D/C to continue with care via [facility] - pt was receiving HBO treatment of last visit prior to recent hospitalizations. Left Leg - Anterior View Left Leg - Medial View Left Leg Lateral view Left Lower Leg Etiology: Venous wound - suspect Mixed etiology pt follows with Dr. Guevara and recently had successful revascularization - see chart for details. Measurements: 9cm x 22cm x 0.5cm Wound Bed: Central adherent moist fibrinous yellow slough, surrounded by moist pale pink tissue marbled with yellow slough Drainage / Odor: minimal drainage noted - yellow no odor Edges: ?epibole and defined Maicol wound: ? mild blanchable erythema noted - no induration no fluctuance - swelling of the foot noted with dry skin - pt reports the swelling is his baseline. Of note pts foot was in the dependent position in the recliner chair - pt advised to elevate lower leg. Pain: Pt expressed pain when cleansed Goals of Treatment: ? Santyl for continued enzymatic debridement and return to [facility] when possible Recommendations: 1. Turn and Reposition every 2 hours and as needed for patient comfort consider use of wedges available in the storeroom. 2. Off Load all bony prominences with use of pillows, wedges and heel boots. 3. Monitor for incontinence and moisture control. 4. Provide adequate and supplemental nutrition. 5. Continue low air loss mattress. 6. Left Lower Leg - Elevate lower leg with use of pillow - Cleanse with normal saline, pat dry. ?Apply thin layer of Triad or Zinc based barrier cream to the immediate maicol wound, apply thick layer of Santyl to entire wound bed. Apply normal saline moist gauze over Santyl then secure with abd pads and tape, change Daily. Re-consult wound care Nurse for wound deterioration or wound changes.
--- NOTE | 2023-03-23 09:39 | MHC.CM.ED ---
Patient remains in ER overflow. [facility] has obtained insurance auth. [facility] booked for 10am. [facility] with chart. Patient, Marcie RN and Mayda JETER aware. Attempted to reach patient's niece, Alla, via telephone at [phone]. Left message with d/c information. Left message at Dr Nunes's with discharge plan. Continue to monitor for d/c needs.
[2023-03-23 12:54] LABS: IgA 490 mg/dL (70-320); IgG 1821 mg/dL (600-1540); IgM 118 mg/dL (50-300)
== END 2023-03-23 11:56 ==
PROVIDERS: Nurse Practitioner Family; Physician Assistant Medical; Registered Nurse Emergency; Emergency Provider Student in an Organized Health Care Education/Training Program; PCP Family Medicine
DX: U07.1 COVID-19 (principal); M86.9 Osteomyelitis, unspecified; S72.002A Fracture of unspecified part of neck of left femur, initial encounter for closed fracture; W19.XXXA Unspecified fall, initial encounter; R50.9 Fever, unspecified; D64.9 Anemia, unspecified; Z79.899 Other long term (current) drug therapy; Y93.9 Activity, unspecified; Y92.9 Unspecified place or not applicable; Y99.9 Unspecified external cause status
CPT/HCPCS: 36415; 70450; 71045; 72125; 80048; 80053; 80202; 81001; 82272; 82565; 82784; 83010; 83605; 83735; 85025; 85045; 85610; 85652; 86140; 87040; 87635; 96361; 96365; 96366; 96372; 96375; 97110; 97116; 97162; 99285; J1650; J2270; J3370; J3371

== ENCOUNTER 2023-04-03 10:37 | Outpatient (REF) | payer MEDICARE, SELFPAY | END 2023-04-03 10:38 | disposition home or self-care (01) | LOC: HO.HOSX 10:37 | PROVIDERS: Visit Provider Physician Assistant | DX: Z13.89 Encounter for screening for other disorder (principal) ==

== ENCOUNTER 2023-04-06 09:45 | Outpatient (AMB) | payer MEDICARE, SELFPAY ==
--- NOTE | 2023-04-06 10:47 | MHC.OFFVIS ---
Intake Intake Visit Reasons: PO- Left Femoral fracture,osteomyelitis 03/12 Intake Note: Alejandro mary 73 year old male presents today for a post operative left hip hemiarthroplasty, DOS 03/12/23. Patient reports he is doing well, he denies any pain. Allergies No Known Allergies Allergy (Mild, Verified 04/06/23 11:19) N/A HPI PO- Left Femoral fracture,osteomyelitis 03/12 HPI Details 73-year-old male who returns to the office today for post-op left femoral fracture, osteomyelitis, 03/16/23. He states he has mild pain and is doing well overall. He continues to work with physical therapy as instructed. He has no other concerns. [facility] Medical History MDD (major depressive disorder) PVD (peripheral vascular disease) HLD (hyperlipidemia) CAD (coronary artery disease) Vertebrobasilar artery syndrome Osteomyelitis Hypertension Social History Household Members: None Housing: House Do you presently have visiting nurse or other home services: Yes Unable to assess alcohol history related to: Refusing to respond Patient Tobacco Use Status: Former Tobacco user Advance Directives Date on File: 03/10/23 service: No Review of Systems Const All systems reviewed & are unremarkable except as noted in HPI and below Physical Exam Extrem Other: Left hip: Incision clean, dry and intact. No erythema or drainage. Mild discomfort with hip flexion. No pain with ROM of hip. NVI. Results Reviewed Results Reviewed: Xrays were obtained in the office today and personally reviewed by me of the right hip show intact prosthesis Assessment & Plan Assessment & Plan (1) Closed fracture of left hip: Code(s): S72.002A - Fracture of unspecified part of neck of left femur, initial encounter for closed fracture Plan Wilbert removed, steri strips applied. He will begin to transition to Outpatient PT to continue working on Gait training, ROM and quad strength. No driving for another 4 weeks. He will require ppx abx for dental procedures. He will f/u in 4 weeks, sooner if needed. Orders: Orders XR femur LT 2V Today M79.606 - Pain in leg, unspecified Patient Instructions: Scribed for Ta-Gisella Sevilla PA-C, by Ben Abhang, biomedical engineering technician, on 04/06/2023 at 11:15 AM Shaq JONES PA-C, have personally reviewed and agree with the information entered by the scribe. Coding Level of Care Code Global (53176) Diagnoses Closed fracture of left hip S72.002A
== END 2023-04-06 11:20 | disposition home or self-care (01) ==
PROVIDERS: PCP Family Medicine; Visit Provider Physician Assistant
DX: S72.002A Fracture of unspecified part of neck of left femur, initial encounter for closed fracture (principal)
CPT/HCPCS: 99024

== ENCOUNTER 2023-04-06 12:14 | Outpatient (REF) | payer MEDICARE, SELFPAY ==
--- NOTE | ~2023-04-06 | XR_ITS ---
EXAMINATION: XR FEMUR, LEFT CLINICAL INFORMATION: Leg pain COMPARISON: 03/10/2023 TECHNIQUE: AP and lateral views of the left femur were obtained. FINDINGS: Since previous study, left total hip replacement has been performed. Prosthetic components appear appropriate in position without evidence of loosening or failure. Alignment is satisfactory. Surgical skin clement identified along prominent left hip soft tissues. Dystrophic calcifications identified about the left lesser trochanter. Femur is intact. Degenerative changes bilateral knees, left greater than right. Left knee is higher than the right. No suprapatellar effusion. Degenerative changes lower lumbar spine. Visualized left SI joint is unremarkable. Visualized bony pelvis appears intact. Vascular calcifications. Phleboliths. XR/XR femur LT 2V IMPRESSION: Left total hip replacement. Degenerative type changes. No acute bony pathology.
== END 2023-04-06 12:15 | disposition home or self-care (01) ==
LOC: HO.HOSX 12:14
PROVIDERS: Visit Provider Physician Assistant
DX: S72.002D Fracture of unspecified part of neck of left femur, subsequent encounter for closed fracture with routine healing (principal)
CPT/HCPCS: 73552

== ENCOUNTER 2023-05-03 06:34 | Outpatient (REF) | payer MEDICARE, SELFPAY | END 2023-05-03 06:35 | disposition home or self-care (01) | LOC: HO.HOSX 06:34 | PROVIDERS: Visit Provider Physician Assistant | DX: M25.552 Pain in left hip (principal); Z96.642 Presence of left artificial hip joint; S72.002D Fracture of unspecified part of neck of left femur, subsequent encounter for closed fracture with routine healing | CPT/HCPCS: 73502; 99212 ==

== ENCOUNTER 2023-05-03 12:29 | Outpatient (AMB) | payer MEDICARE, SELFPAY ==
--- NOTE | 2023-05-03 12:44 | A.OFFVIS_ITS ---
Intake Intake Visit Reasons: p.o Left hip enrike 03/12/23 NE w/ xrays Intake Note: Alejandro 73 yr old male presents today for his P/O visit fot his left hip Enrike from DOS 03/12/[address] Devlin. States he has no pain at surgical site. Allergies No Known Allergies Allergy (Mild, Verified 05/03/23 12:45) N/A HPI p.o Left hip enrike 03/12/23 NE w/ xrays HPI Details 73-year-old male who [facility] post-op left hip hemiarthroplasty, 03/12/[address] Devlin. He states he has no pain at the surgical site and is doing well overall. He has no other concerns today. [facility] Medical History MDD (major depressive disorder) PVD (peripheral vascular disease) HLD (hyperlipidemia) CAD (coronary artery disease) Vertebrobasilar artery syndrome Osteomyelitis Hypertension Social History Household Members: None Housing: House Do you presently have visiting nurse or other home services: Yes Unable to assess alcohol history related to: Refusing to respond Patient Tobacco Use Status: Former Tobacco user Advance Directives Date on File: 03/10/23 service: No Review of Systems Const All systems reviewed & are unremarkable except as noted in HPI and below Physical Exam Extrem Other: Left hip: Incision well healed.No pain with ROM of hip or with hip flexion. NVI. Results Reviewed Results Reviewed: Xrays were obtained in the office today and personally reviewed by me of the right hip show intact prosthesis Assessment & Plan Assessment & Plan (1) Closed fracture of left hip: Code(s): S72.002A - Fracture of unspecified part of neck of left femur, initial encounter for closed fracture Qualifiers: Encounter type: subsequent encounter Fracture healing: with routine healing Qualified Code(s): S72.002D - Fracture of unspecified part of neck of left femur, subsequent encounter for closed fracture with routine healing Plan He will continue working with physical therapy. I did put in an order for outpatient physical therapy services to work on gait training and strengthening. I would like to see him back in 6 weeks with new x-rays, sooner if needed. Orders: Orders PT Evaluation and Treatment Today S72.002A - Fracture of unspecified part of neck of left femur, initial encounter for closed fracture XR hip LT w PEL1V Today M25.559 - Pain in unspecified hip Patient Instructions: Scribed for Shaq Sevilla PA-C, by Ben Meraz medical health researcher, on 05/03/2023 at 1:00 PM EST. Shaq Rubio PA-C, have personally reviewed and agree with the information entered by the scribe. Coding Level of Care Code Global (76792) Diagnoses Closed fracture of left hip with routine healing, subsequent encounter S72.002D Encounter type: subsequent encounter Fracture healing: with routine healing
== END 2023-05-03 13:16 | disposition home or self-care (01) ==
PROVIDERS: PCP Family Medicine; Visit Provider Physician Assistant
DX: S72.002D Fracture of unspecified part of neck of left femur, subsequent encounter for closed fracture with routine healing (principal)
CPT/HCPCS: 99024

== ENCOUNTER 2023-05-04 | Outpatient (RCR) | payer MEDICARE, SELFPAY | END 2023-09-28 10:00 | disposition other institution (70) | LOC: HO.WCC | PROVIDERS: PCP Family Medicine; Visit Provider Surgery | DX: L97.824 Non-pressure chronic ulcer of other part of left lower leg with necrosis of bone (principal); M86.362 Chronic multifocal osteomyelitis, left tibia and fibula; Z79.82 Long term (current) use of aspirin; Z79.899 Other long term (current) drug therapy | CPT/HCPCS: 11042; 11043; 11045; 11046; 97597; 97598; 99183; 99212 ==

== ENCOUNTER 2023-05-15 12:11 | Emergency (ER) | payer MEDICARE, SELFPAY ==
[2023-05-15 12:22] VITALS: BP 127/59; BP 140/72; PULSE 64; PULSE 88; RESP 18; TEMP 36.7; O2SAT 98; BMI 25.3
[2023-05-15 12:40] LABS: MANUAL DIFF FLAG NO
[2023-05-15 12:44] LABS: Basophils Absolute Auto 0.1 X10*3/uL (0.0-0.2); Eosinophils Absolute Auto 0.3 X10*3/uL (0.0-0.4); Eosinophils Percent Auto 3.1 % (0-4); Hematocrit 35.8 % (42.0-52.0); Hemoglobin 11.1 g/dl (14.0-18.0); Imm Gran Abs Auto 0.06 X10*3/uL (0.00-0.03); Imm Gran Pct Auto 0.6 % (0.0-0.4); Lymphocytes Absolute Auto 2.3 X10*3/uL (1.2-4.9); Lymphocytes Percent Auto 22.7 % (20-40); Mean Corpuscular Hemoglobin 26.2 pg (27.0-33.0); Mean Corpuscular Volume 84.4 fL (80.0-98.0); Mean Platelet Volume 8.4 fL (9.4-12.4); Monocytes Absolute Auto 1.1 X10*3/uL (0.1-1.2); Monocytes Percent Auto 10.7 % (2-11); Neutrophils Absolute Auto 6.2 x10*3/uL (2.0-8.3); Neutrophils Percent Auto 61.9 % (45-73); Platelet Count 526 X10*3/uL (160-400); Red Blood Count 4.24 X10*6/uL (4.60-5.80); Red Cell Distribution Width 15.6 % (11.0-16.0); White Blood Count 10.1 X10*3/uL (4.8-10.8)
[2023-05-15 12:48] LABS: INTERNATIONAL NORM RATIO 0.9 (0.9-1.1); Prothrombin Time 11.5 SEC (11.1-13.3)
[2023-05-15 12:58] LABS: Alanine Aminotransferase 15 U/L (0-40); Albumin Level 3.8 g/dL (3.5-5.0); Alkaline Phosphatase 120 U/L (39-117); Anion Gap 16 (12-20); Aspartate Amino Transferase 23 U/L (5-37); Bilirubin Total 0.3 mg/dL (0.0-1.0); Blood Urea Nitrogen 12 mg/dL (9-16); Calcium 9.9 mg/dL (8.4-10.2); Carbon Dioxide 26 mmol/L (22-29); Chloride 94 mmol/L (96-108); Creatinine Clr Calc Pharmacy 80.5; Estimated Glomerular Filt Rate > 60; Glucose Random 88 mg/dL (60-115); Magnesium 2.2 mg/dL (1.6-2.6); Potassium 4.7 mmol/L (3.3-5.1); Sodium 131 mmol/L (135-145); Total Protein 9.5 g/dL (6.5-8.0)
--- NOTE | 2023-05-15 13:15 | PC.NURSE ---
patient a&ox3, vss, iv inserted, labs drawn, pt asking to go home as he feels the vna nurse over-reacted, lle dressing intact/boot on, call johnson within reach, will continue to monitor
[2023-05-15 13:20] LABS: Erythrocyte Sedimentation Rate 85 MM/HR (0-15)
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
[2023-05-15 15:10] VITALS: BP 159/73; PULSE 69; RESP 18; TEMP 36.9; O2SAT 98
== END 2023-05-15 15:53 | disposition home or self-care (01) ==
PROVIDERS: Physician Assistant; Emergency Provider Emergency Medicine; PCP Family Medicine
DX: L03.116 Cellulitis of left lower limb (principal); R60.0 Localized edema; M79.605 Pain in left leg; Z79.899 Other long term (current) drug therapy
CPT/HCPCS: 36415; 80053; 83605; 83735; 85025; 85610; 85652; 87040; 93971; 99284

== ENCOUNTER 2023-06-12 12:04 | Outpatient (REF) | payer MEDICARE, SELFPAY ==
--- NOTE | ~2023-06-12 | CT_ITS ---
EXAMINATION: CT HEAD WITHOUT CONTRAST CLINICAL INFORMATION: 73-year-old male with head contusion, evaluate for bleed COMPARISON: 03/19/2023 TECHNIQUE: Contiguous axial imaging was performed from the skull base to vertex without intravenous administration of contrast. This CT examination was performed using dose optimization techniques as appropriate, variously including the following: *Automated exposure control *Adjustment of mA and/or kV according to patient size (this includes techniques or standardized protocols for targeted exams where dose is matched to indication/reason for exam; i.e. extremities or head) *Use of iterative reconstruction technique DLP: 802 mGy-cm FINDINGS: There is no significant interval change in appearance of mild prominence of sulci and ventricles and patchy periventricular white matter changes as a sequela such of microangiopathy but no evidence of intracranial hemorrhage, masses, midline shift, acute infarcts. There is large right frontal cephalohematoma new since previous study, not associated with fractures. Paranasal sinuses and mastoids are well aerated. CT/CT head/brain wo IV con IMPRESSION: No acute intracranial pathology. Large right frontal cephalohematoma.
== END 2023-06-12 12:05 | disposition home or self-care (01) ==
LOC: HO.CT 12:04
PROVIDERS: Visit Provider Physician Assistant
DX: S00.93XA Contusion of unspecified part of head, initial encounter (principal); X58.XXXA Exposure to other specified factors, initial encounter; Y93.9 Activity, unspecified; Y92.9 Unspecified place or not applicable; Y99.9 Unspecified external cause status
CPT/HCPCS: 70450

== ENCOUNTER 2023-06-14 12:08 | Outpatient (REF) | payer MEDICARE, SELFPAY ==
--- NOTE | ~2023-06-14 | XR_ITS ---
EXAMINATION: XR HIP, LEFT WITH AP PELVIS CLINICAL INFORMATION: Pain. COMPARISON: None available. TECHNIQUE: AP and frog-leg lateral views of the left hip are submitted, together with an AP view of the pelvis. FINDINGS: Prosthetic components of the left total hip arthroplasty are appropriately aligned without periprosthetic fracture or abnormal lucency. No component migration. There is mild narrowing of the right acetabular joint space medially. The right femoral head appears smooth. The pubic symphysis is intact. There are diffuse iliofemoral atherosclerotic calcifications. XR/XR hip LT w PEL1V IMPRESSION: 1. Appropriate alignment of the left total hip arthroplasty without surrounding abnormalities. 2. There is mild osteoarthritic change of the right hip. 3. No fracture or dislocation is seen.
== END 2023-06-14 12:09 | disposition home or self-care (01) ==
LOC: HO.HOSX 12:08
PROVIDERS: Visit Provider Physician Assistant
DX: S72.002D Fracture of unspecified part of neck of left femur, subsequent encounter for closed fracture with routine healing (principal)
CPT/HCPCS: 73502; 99212

== ENCOUNTER 2023-06-14 13:26 | Outpatient (AMB) | payer MEDICARE, SELFPAY ==
--- NOTE | 2023-06-14 13:42 | A.OFFVIS_ITS ---
Intake Vital Signs 06/14/23 13:45 Height 5 ft 8 in Weight 166 lb BMI 25.2 Intake Visit Reasons: OV-Left hip enrike 03/12/23 NE w/ xrays Intake Note: Alejandro mary 73 year old male presents today for a post operative left hip enrike, DOS 03/12/23 NE. Patient reports for the past 2-3 weeks he has been having sharp pain in his hip. Denies injury. Allergies No Known Allergies Allergy (Mild, Verified 06/14/23 13:50) N/A HPI OV-Left hip enrike 03/12/23 NE w/ xrays HPI Details 73-year-old male who returns to the [facility] today for a follow-up of left hip hemiarthroplasty, 03/12/[address] Devlin. He states he has a sharp pain in his hip for the past 3 weeks. He denies any injury. He is doing well otherwise and has no other concerns today. [facility] Medical History (Updated 05/16/23 @ 00:00 by Jareth Lomeli) MDD (major depressive disorder) PVD (peripheral vascular disease) HLD (hyperlipidemia) CAD (coronary artery disease) Vertebrobasilar artery syndrome Osteomyelitis Hypertension Social History Household Members: None Housing: House Do you presently have visiting nurse or other home services: Yes Unable to assess alcohol history related to: Refusing to respond Alcohol intake: current Alcohol intake frequency: 0-2 drinks per day Patient Tobacco Use Status: Former Tobacco user Advance Directives Date on File: 03/10/23 service: No Review of Systems Const All systems reviewed & are unremarkable except as noted in HPI and below Physical Exam Vital Signs: BMI result Body Mass Index 25.2 Extrem Other: Left hip: Incision well healed.No pain with ROM of hip or with hip flexion. Mild discomfort over the greater troch, NVI. Results Reviewed Results Reviewed: Xrays were obtained in the office today and personally reviewed by me of the right hip show intact prosthesis Assessment & Plan Assessment & Plan (1) Closed fracture of left hip: Code(s): S72.002A - Fracture of unspecified part of neck of left femur, initial encounter for closed fracture Qualifiers: Encounter type: subsequent encounter Fracture healing: with routine healing Qualified Code(s): S72.002D - Fracture of unspecified part of neck of left femur, subsequent encounter for closed fracture with routine healing Plan I did give him a handout of home exercises to work on hip strengthening and he was also given a formal order of physical therapy which if he is interested in, he will contact to make an appointment. He does not need to come back unless he has any concerns. He will follow-up as needed. Orders: Orders XR hip LT w PEL1V Today M25.559 - Pain in unspecified hip Patient Instructions: Scribed for Shaq Sevilla PA-C, by Ben Meraz bilingual medical assistant, on 06/14/2023 at 1:30 PM EST. Ramiro, Shaq Sevilla PA-C, have personally reviewed and agree with the information entered by the scribe. Coding Level of Care Code Global (94436) Diagnoses Closed fracture of left hip with routine healing, subsequent encounter S72.002D Encounter type: subsequent encounter Fracture healing: with routine healing
[2023-06-14 13:45] VITALS: BMI 25.2
== END 2023-06-14 14:12 | disposition home or self-care (01) ==
LOC: HO.HOS 13:26
PROVIDERS: PCP Family Medicine; Visit Provider Physician Assistant
DX: S72.002D Fracture of unspecified part of neck of left femur, subsequent encounter for closed fracture with routine healing (principal)
CPT/HCPCS: 99213

== ENCOUNTER 2024-01-01 13:29 | Outpatient (AMB) | payer MEDICARE, SELFPAY ==
--- NOTE | 2024-01-01 14:05 | AM.OFFWIN_ITS ---
Intake Vital Signs 01/01/24 14:06 Height 5 ft 8 in Weight 151 lb BMI 23.0 BP 128/74 Blood Pressure Location Rt brachial Position Sitting Pulse 66 Pulse Source Pulse Oximeter Temp 98.2 F Temp Source Oral Pulse Oximetry (%) 99 Intake Visit Reasons: EP- LT foot bandage change Intake Note: pt is here for dressing change LT foot surgical wound. Had bypass surgery 11/27 Patient Tobacco Use Status: Former Tobacco user Allergies No Known Allergies Allergy (Mild, Verified 01/01/24 14:05) N/A Do you need a note to return to daycare/school/sports/work: No HPI HPI Comments History of Present Illness Details Patient is a 73-year-old male who is here asking for us to change his wound dressings. He states he had some kind of vascular surgery by a doctor in [place] and went to a rehab facility and was discharged with someone who was supposed to come to his home to change his dressings. He states that company never came and he can not get ahold of the rehab facility to get it all straightened out but he stating his dressings are soaked through and his wound is now smelly, and he needs new bandages. Patient states the last time he had the dressing changed was 4 days ago. Patient states he has a follow-up with his vascular surgeon and his primary care doctor tomorrow [facility] Medical History (Updated 01/01/24 @ 14:58 by Dianna Thomas PA-C) MDD (major depressive disorder) PVD (peripheral vascular disease) HLD (hyperlipidemia) CAD (coronary artery disease) Vertebrobasilar artery syndrome Osteomyelitis Hypertension Social History Household Members: None Housing: House Do you presently have visiting nurse or other home services: Yes Unable to assess alcohol history related to: Refusing to respond Alcohol intake: current Alcohol intake frequency: 0-2 drinks per day Patient Tobacco Use Status: Former Tobacco user Advance Directives Date on File: 03/10/23 service: No Review of Systems Const All systems reviewed & are unremarkable except as noted in HPI and below Physical Exam Vital Signs: Last Vital Signs Temp 98.2 F 01/01/24 14:06 Pulse 66 01/01/24 14:06 BP 128/74 01/01/24 14:06 Pulse Ox 99 01/01/24 14:06 BMI result Body Mass Index 23.0 Const General: cooperative, healthy appearing, comfortable and no acute distress Orientation/consciousness: patient oriented x3 Limitations: no limitations HEENT Head: Yes normal to inspection Resp Effort & Inspection: normal respiratory effort and able to speak in complete sentences Neuro General: patient oriented x3 Extrem Other: Left lower extremity 2+ pitting edema with surgical wounds in place, I did not remove what appears to be Radha Hydrofera Blue? Foam Dressing without Border , wound was malodorous with lots purulent fluid soaking the old abdominal pads that were in place Assessment & Plan Assessment & Plan (1) Encounter for surgical wound dressing change: Code(s): Z48.01 - Encounter for change or removal of surgical wound dressing Plan: Explained to the patient we did not have all of the proper supplies to change his dressing but we did take the old bandages and please to new abdominal pads in some gauze protect it as the old pads were soaked through. He does have a follow up with his surgeon and his PCP tomorrow. Plan See above Coding Level of Care Code New Pt Level 3 (47877) Diagnoses Encounter for surgical wound dressing change Z48.01
[2024-01-01 14:06] VITALS: BP 128/74; PULSE 66; TEMP 36.8; O2SAT 99; BMI 23.0
== END 2024-01-01 15:10 | disposition home or self-care (01) ==
PROVIDERS: PCP Family Medicine; Visit Provider Physician Assistant
DX: Z48.01 Encounter for change or removal of surgical wound dressing (principal)
CPT/HCPCS: 99203